=== PATIENT | female | born 1935 | race Caucasian/White ===

== ENCOUNTER 2016-09-08 10:10 | Emergency (ER) | payer MEDICARE, BC ==
[2016-09-08] MEDS ORDERED: DIPH,PERTUS(ACELL)TETVAC-LF 0.5 ML VIAL IM ONE (10:50)
--- NOTE | 2016-09-08 11:02 | ED ---
General Adult HPI - General Chief complaint: Head Injury Stated complaint: Fall Time Seen by Provider: 09/08/16 10:35 Source: patient Mode of arrival: ambulatory Limitations: no limitations - History of Present Illness Initial comments: 80-year-old female presented for evaluation of minor head injury after mechanical fall from standing. She states that she was out walking her dog and slipped on a patch of ice falling backward and hitting the back of her head. She denies any loss of consciousness and states she does not take any anticoagulants/antiplatelets. She was able to get herself up immediately and continue with the walk. Upon arrival home she discussed what happened with her and he recommended that they come for evaluation. They're going on a trip today and they want to make sure that she is safe to travel and that there was no injury that well progressed later. She states upon arriving home she felt a little confused but that resolved quickly and she is back at her baseline. She denies any ataxia, lightheadedness, nausea/vomiting, weakness, change in vision. - Related Data Home Medications Medication Instructions Recorded Confirmed Aspirin 81 mg PO DAILY 09/08/16 09/08/16 Levothyroxine Sodium [Synthroid] 75 mcg PO DAILY 09/08/16 09/08/16 Lisinopril [Zestril] 20 mg PO DAILY 09/08/16 09/08/16 Multivit-Min/FA/Lycopene/Lut 1 tab PO DAILY 09/08/16 09/08/16 [Centrum Silver Tablet] Tolterodine Tartrate [Detrol LA] 4 mg PO DAILY 09/08/16 09/08/16 Previous Rx's Medication Instructions Recorded Ibuprofen [Motrin] 800 mg PO Q8HR PRN #20 tab 09/08/16 Allergies Allergy/AdvReac Type Severity Reaction Status Date / Time adhesive tape Allergy Rash/Hives Verified 09/08/16 10:38 povidone-iodine Allergy Rash/Hives Verified 09/08/16 10:38 [From Betadine] soap [From Betadine] Allergy Rash/Hives Verified 09/08/16 10:38 Sulfa (Sulfonamide Allergy Rash/Hives Verified 09/08/16 10:38 Antibiotics) Review of Systems ROS Statement: Those systems with pertinent positive or pertinent negative responses have been documented in the HPI. General: Patient denies fever, chills,nausea, or vomiting. HEENT: No visual changes. No eye pain. No nasal symptoms. No dysphagia.No odynophagia. No ENT pain. Cardiac: No chest pain. No palpitations. Pulmonary; No dyspnea. Denies cough GI: No abdominal pain. No diarrhea. No constipation. No bowel habit changes. No melena. No hematochezia. : No dysuria.No hematuria. No hesitancy. No urgency. No renal lithiasis history. Musculoskeletal: Mild tenderness to the occiput midline. Orthopedic: Denies fracture history. Integumentary: Denies rash. Denies pruritis. Mild abrasion to occiput Neurologic: Denies any lateralizing weakness. Denies numbness. Denies tingling. No seizure activity. ROS Other: All systems not noted in ROS Statement are negative. Past Medical History Past Medical History: Hypertension, Thyroid Disorder Additional Past Medical History / Comment(s): christophe espinoza lumpectomy History of Any Multi-Drug Resistant Organisms: None Reported Past Surgical History: Adenoidectomy, Cholecystectomy, Joint Replacement, Orthopedic Surgery, Tonsillectomy Additional Past Surgical History / Comment(s): fetus removal Past Psychological History: No Psychological Hx Reported Smoking Status: Former smoker Past Alcohol Use History: Rare Past Drug Use History: None Reported General Exam - General Exam Comments Initial Comments: General: The patient is awake and alert, in no distress, and does not appear acutely ill. Eye: Pupils are equal, round and reactive to light, extra-ocular movements are intact; there is normal conjunctiva bilaterally. No signs of icterus. Ears, nose, mouth and throat: There are moist mucous membranes and no oral lesions. Neck: The neck is supple, there is no tenderness or JVD. Cardiovascular: There is a regular rate and rhythm. No murmur, rub or gallop is appreciated. Respiratory: Lungs are clear to auscultation, respirations are non-labored, breath sounds are equal. No wheezes, stridor, rales, or rhonchi. Gastrointestinal: Soft, non-distended, non-tender abdomen without masses or organomegaly noted. There is no rebound or guarding present. No CVA tenderness. Bowel sounds are unremarkable. Back: There is no tenderness to palpation in the midline. There is no obvious deformity. No rashes noted. Musculoskeletal: Normal ROM, no tenderness, There is no pedal edema. There is no calf tenderness or swelling. Sensation intact. Pulses equal bilaterally 2+. Neurological: CN II-XII intact, There are no obvious motor or sensory deficits. Coordination appears grossly intact. Speech is normal. Skin: Skin is warm and dry. Abrasion to occiput. Psychiatric: Cooperative, appropriate mood & affect, normal judgment. Limitations: no limitations Course Vital Signs 09/08/16 09/08/16 09/08/16 10:12 10:32 12:25 Temperature 97.8 F 97.3 F L Pulse Rate 89 89 78 Respiratory 18 18 20 Rate Blood Pressure 193/91 169/89 164/73 O2 Sat by Pulse 99 96 98 Oximetry Medical Decision Making - Medical Decision Making 80-year-old female presented for evaluation of head injury following mechanical fall from standing while walking her dog. She slipped on ice falling backwards striking the back of her head resulting in a minor abrasion. There was some post trauma disorientation but she was able to get herself home without difficulty and this has since resolved. Physical examination reveals mild abrasion to the occiput but otherwise no acute abnormalities with cranial nerves II through XII intact, normal gait and station, without ataxia. We'll obtain CT head and neck and update tetanus status. CT head and neck revealed no significant abnormalities. The patient was reevaluated and continued to have a normal physical evaluation. She is informed of these results and that she would be discharged with instructions to follow with her primary care physician. She is further informed that she should return to this facility if her symptoms should worsen or persist. She acknowledged an understanding of this information and agreed with this plan of care. - Radiology Data Radiology results: report reviewed, image reviewed Disposition Clinical Impression: Contusion of scalp, initial encounter, Closed head injury Disposition: HOME SELF-CARE Condition: Stable Instructions: Concussion (ED) Additional Instructions: Please use medication as discussed. Please follow up with family doctor if symptoms have not improved over the next two days. Please return to the emergency room if your symptoms increase or worsen or for any other concerns. Prescriptions: Ibuprofen [Motrin] 800 mg PO Q8HR PRN #20 tab PRN Reason: Analgesia Referrals: Jason Killian MD [Primary Care Provider] - 1-2 days Time of Disposition: 12:08
--- NOTE | 2016-09-08 12:00 | CT ---
EXAMINATION TYPE: CT brain anny portillo con DATE OF EXAM: 09/08/2016 11:44 AM COMPARISON: NONE HISTORY: 80-year-old female with fall, struck back of head CT DLP: 1431.5 mGycm Automated exposure control for dose reduction was used. Technique: Examination of the head was done in axial plane without intravenous contrast. Coronal and sagittal reconstructions performed. CT of the cervical spine was obtained in axial plane without intravenous injection of contrast mater ial. Coronal and sagittal reformatted images were obtained from the axial views for evaluation of f ractures, spinal alignment and canal. FINDINGS: Head: There is no evidence of acute intracranial hemorrhage, acute ischemic changes, mass, mass-effect, or extra-axial fluid collection. There is no effacement of cerebral sulci or basal subarachnoid cister ns. There is no hydrocephalus. There is no midline shift. Pollack-white matter distinction is preserv ed. There is a moderate-sized posterior scalp contusion without underlying calvarial fracture. Mild patchy white matter hypodensities in both cerebral hemispheres. Incidental partially empty sella . Air-fluid levels in the sphenoid sinuses. Small mucosal retention cyst or polyp floor of the right ma xillary sinus. Orbits and globes appear intact. Paranasal sinuses appear well pneumatized. Cervical spine: No craniocervical junction abnormality, predental space widening, or prevertebral soft tissue swellin g. There is facet arthropathy and uncovertebral joint arthropathy as well with grade 1 anterolisthesis a t C3-C4. Moderate disc/endplate degenerative change from C4 through C6 levels with disc osteophyte complex for mation causing mild narrowing of the spinal canal at C4-C5 and C5-C6 along with mild to moderate neur oforaminal narrowing at these levels as well. No acute fracture of the cervical spine. Sagittal and coronal reformatted images confirm above findings. COMBINED IMPRESSION: 1. Moderate size posterior scalp contusion without underlying calvarial fracture or acute intracrania l abnormality seen. Mild changes of chronic small vessel ischemic disease 2. No acute fracture of the cervical spine. Moderate spondylotic changes especially in the mid to low er cervical spine with degenerative grade 1 anterolisthesis at C3-C4. 3. Air-fluid levels in the sphenoid sinuses. Correlate for any symptoms of acute sinusitis.
[2016-09-08 12:26] VITALS: BP 164/73; PULSE 78; RESP 20; TEMP 97.3
== END 2016-09-08 12:26 | disposition home or self-care (01) ==
LOC: EC 10:10
DX: S00.03XA Contusion of scalp, initial encounter (principal); S09.90XA Unspecified injury of head, initial encounter; E07.9 Disorder of thyroid, unspecified; I10 Essential (primary) hypertension; W00.0XXA Fall on same level due to ice and snow, initial encounter; Y93.K1 Activity, walking an animal; Z79.82 Long term (current) use of aspirin; Z79.899 Other long term (current) drug therapy; Z91.048 Other nonmedicinal substance allergy status; Z88.8 Allergy status to other drugs, medicaments and biological substances; Z88.2 Allergy status to sulfonamides; Z85.3 Personal history of malignant neoplasm of breast; Z87.891 Personal history of nicotine dependence
CPT/HCPCS: 70450; 72125; 90471; 90715; 99283

== ENCOUNTER → 2016-10-25 | Outpatient (CLI) | payer MEDICARE, BC ==
--- NOTE | 2016-10-25 17:01 | XR ---
EXAMINATION TYPE: XR ribs bilateral DATE OF EXAM: 10/25/2016 4:24 PM COMPARISON: NONE HISTORY: Pain TECHNIQUE: 8 views of the bilateral ribs are submitted. FINDINGS: No evidence for displaced rib fracture or secondary sign of rib fracture. No erosive or dustin tructive changes seen. IMPRESSION: Negative
== END | disposition home or self-care (01) ==
LOC: RADXRMAIN 16:05
PROVIDERS: ATTEND Internal Medicine Geriatric Medicine
DX: M94.0 Chondrocostal junction syndrome [Tietze] (principal)
CPT/HCPCS: 71110

== ENCOUNTER → 2016-12-07 | Outpatient (CLI) | payer MEDICARE, BC ==
--- NOTE | 2016-12-07 18:28 | CT ---
EXAMINATION TYPE: CT brain wo con DATE OF EXAM: 12/07/2016 5:33 PM COMPARISON: 09/08/2016 HISTORY: f/u from fall CT DLP: 961 mGycm Automated exposure control for dose reduction was used. FINDINGS: Ventricles are fairly normal size. There is no mass effect nor midline shift. There is no evidence of intracranial hemorrhage. The calvarium appears intact. IMPRESSION: Negative unenhanced head CT scan. No change.
== END ==
LOC: RADCTMAIN 17:18
PROVIDERS: ATTEND Internal Medicine Geriatric Medicine
DX: S06.0X0D Concussion without loss of consciousness, subsequent encounter (principal)
CPT/HCPCS: 70450

== ENCOUNTER → 2018-07-03 | Outpatient (CLI) | payer MEDICARE, BC ==
[2018-07-03 17:46] LABS: T4, Free (Free Thyroxine) 1.3 ng/dL (0.80-1.80)
== END | disposition home or self-care (01) ==
LOC: LABWHC1 09:17
PROVIDERS: ATTEND Internal Medicine Geriatric Medicine
DX: E03.9 Hypothyroidism, unspecified (principal)
CPT/HCPCS: 36415; 84439; 84443

== ENCOUNTER → 2018-08-23 | Outpatient (CLI) | payer MEDICARE, BC ==
--- NOTE | 2018-08-23 16:54 | BD ---
EXAMINATION TYPE: Axial Bone Density DATE OF EXAM: 08/23/2018 COMPARISON: NONE CLINICAL HISTORY: Height: 63 Weight: 168.6 FRAX RISK QUESTIONS: Alcohol (3 or more units per day): no Family History (Parent hip fracture): no Glucocorticoids (More than 3mos): no (Ex: prednisone, prednisolone, methylprednisolone, dexamethasone, and hydrocortisone). History of Fracture in Adulthood: no Secondary Osteoporosis: 1. Type 1 Diabetes: no 2. Hyperthyroidism: no 3. Menopause before 45: no 4. Malnutrition: no 5. Chronic liver disease: no Rheumatoid Arthritis: no Current Tobacco Use: no RISK FACTORS HISTORY OF: Surgery to Spine/Hip(right/left)/Wrist (right/left): left hip When: 2006 Active: yes Diet low in dairy products/other sources of calcium: no Postmenopausal woman: can't remember Lost more than 2 inches in height since high school: no MEDICATIONS: omeprazole, lisinopril, tolterodine, vitamins Thyroid Medications: thyroid How Long: long time Additional History: breast cancer EXAM MEASUREMENTS: Bone mineral densitometry was performed using the K[employer]ron System. Bone mineral density as measured about the Lumbar spine is: ----- L1-L4(G/cm2): 1.298 T Score Values are as follows: ----- L2: 0.8 ----- L3: 2.1 ----- L4: 0.9 ----- L1-L4: 1.0 Bone mineral density has: increased 2.0 study of: 08.16.2015 Bone mineral density about the R hip (g/cm2): 0.682 Bone mineral density about the L hip (g/cm2): T Score values are as follows: -----R Neck: -2.6 -----R Total: -1.6 Bone mineral density has:decreased -6.0 since 08.16.2015 IMPRESSION: Osteoporosis (T Score less than -2.5). There is increased fracture risk and therapy is usually indicated based on age. Re-Screen 1-2 years. NOTE: T-SCORE=SD OF THE YOUNG ADULT MEAN.
== END | disposition home or self-care (01) ==
LOC: RADBDWWP 10:49
PROVIDERS: ATTEND Internal Medicine Geriatric Medicine
DX: M81.0 Age-related osteoporosis without current pathological fracture (principal)
CPT/HCPCS: 77080

== ENCOUNTER → 2018-08-23 | Outpatient (CLI) | payer MEDICARE, BC ==
--- NOTE | 2018-08-23 13:57 | MM ---
Reason for exam: additional evaluation requested from prior study. Last mammogram was performed 1 year ago. History: Patient is postmenopausal and has history of breast cancer at age 64. Family history of breast cancer in sister at age 70. Malignant excisional biopsy of the right breast, January 31, 2000. Excisional biopsy of the left breast. Lumpectomy of the right breast. Chemotherapy. Radiation therapy of the right breast. Took estrogen for 1 year beginning at age 57. Took progesterone for 1 year beginning at age 57. Took tamoxifen for 13 years beginning at age 64. Physical Findings: Nurse did not find any significant physical abnormalities on exam. MG 3D Diag Mammo W/Cad RICARDO Bilateral CC, MLO, and XCCL view(s) were taken. Prior study comparison: August 22, 2017, bilateral MG 3d diag mammo w/cad RICARDO. August 17, 2016, bilateral MG 3d diag mammo w/cad RICARDO. The breast tissue is heterogeneously dense. This may lower the sensitivity of mammography. Post surgical changes in the right breast. No significant new findings when compared with previous films. These results were verbally communicated with the patient and result sheet given to the patient on 08/23/18. ASSESSMENT: Benign, BI-RAD 2 RECOMMENDATION: Routine screening mammogram of both breasts in 1 year.
== END | disposition home or self-care (01) ==
LOC: RADMAMWWP 10:46
PROVIDERS: ATTEND Internal Medicine Hematology & Oncology
DX: Z08 Encounter for follow-up examination after completed treatment for malignant neoplasm (principal); Z85.3 Personal history of malignant neoplasm of breast
CPT/HCPCS: 77066; G0279; 77062

== ENCOUNTER 2018-10-05 08:32 | Emergency (ER) | payer MEDICARE, BC ==
[2018-10-05] MEDS ORDERED: SODIUM CHLORIDE 0.9% 1,000 ML IV STA ×2 (09:20)
[2018-10-05] MEDS ORDERED: MORPHINE SULFATE 4 MG/ML SYRINGE IV STA (09:20)
[2018-10-05] MEDS ORDERED: ONDANSETRON 4 MG/2 ML VIAL IVP STA (09:20)
--- NOTE | 2018-10-05 09:22 | ED ---
Nausea/Vomiting/Diarrhea HPI - General Chief complaint: Nausea/Vomiting/Diarrhea Stated complaint: Vomiting/pain Time Seen by Provider: 10/05/18 08:41 Source: patient, RN notes reviewed, old records reviewed Mode of arrival: ambulatory Limitations: no limitations - History of Present Illness Initial comments: Patient is an 82-year-old female presents to return today with complaints of 1 day of vomiting. She plans of left-sided abdominal pain. She also complains of left sided hip pain worse with radiation and movement. Patient states that she's had no chest pain or shortness of breath. Patient states that she has had no changes in urination or bowel habits. Patient reports that she's had episodes of diarrhea back in July which they attributed to increased sugar intake. - Related Data Home Medications Medication Instructions Recorded Confirmed Aspirin 81 mg PO DAILY 09/08/16 10/05/18 Levothyroxine Sodium [Synthroid] 75 mcg PO DAILY 09/08/16 10/05/18 Lisinopril [Zestril] 20 mg PO DAILY 09/08/16 10/05/18 Multivit-Min/FA/Lycopen/Lutein 1 tab PO DAILY 09/08/16 10/05/18 [Centrum Silver Tablet] Tolterodine Tartrate [Detrol LA] 4 mg PO DAILY 09/08/16 10/05/18 Loratadine [Claritin] 10 mg PO DAILY 10/05/18 10/05/18 Omeprazole 20 mg PO DAILY 10/05/18 10/05/18 Previous Rx's Medication Instructions Recorded Ibuprofen 600 mg PO TID #20 tablet 10/05/18 Ondansetron HCl [Zofran] 4 mg PO TID #12 tablet 10/05/18 traMADol HCl [Ultram] 50 mg PO Q6HR PRN 3 Days #12 tab 10/05/18 Allergies Allergy/AdvReac Type Severity Reaction Status Date / Time adhesive tape Allergy Rash/Hives Verified 10/05/18 09:03 povidone-iodine Allergy Rash/Hives Verified 10/05/18 09:03 [From Betadine] soap [From Betadine] Allergy Rash/Hives Verified 10/05/18 09:03 Sulfa (Sulfonamide Allergy Rash/Hives Verified 10/05/18 09:03 Antibiotics) Review of Systems ROS Statement: Those systems with pertinent positive or pertinent negative responses have been documented in the HPI. ROS Other: All systems not noted in ROS Statement are negative. Past Medical History Past Medical History: Hypertension, Thyroid Disorder Additional Past Medical History / Comment(s): christophe ca lumpectomy History of Any Multi-Drug Resistant Organisms: None Reported Past Surgical History: Adenoidectomy, Cholecystectomy, Joint Replacement, Orthopedic Surgery, Tonsillectomy Additional Past Surgical History / Comment(s): fetus removal Past Psychological History: No Psychological Hx Reported Smoking Status: Former smoker Past Alcohol Use History: Rare Past Drug Use History: None Reported General Exam - General Exam Comments Initial Comments: Pleasant 82 year old female, no distress. Limitations: no limitations General appearance: alert, in no apparent distress Head exam: Present: atraumatic, normocephalic, normal inspection Eye exam: Present: normal appearance, PERRL, EOMI. Absent: scleral icterus, conjunctival injection, periorbital swelling ENT exam: Present: normal exam, mucous membranes moist Neck exam: Present: normal inspection. Absent: tenderness, meningismus, lymphadenopathy Respiratory exam: Present: normal lung sounds bilaterally. Absent: respiratory distress, wheezes, rales, rhonchi, stridor Cardiovascular Exam: Present: regular rate, normal rhythm, normal heart sounds. Absent: systolic murmur, diastolic murmur, rubs, gallop, clicks GI/Abdominal exam: Present: soft, tenderness (LLQ tenderness), normal bowel sounds. Absent: distended, guarding, rebound, rigid Extremities exam: Present: normal inspection, full ROM, normal capillary refill , other (Pain with ROM of L hip). Absent: tenderness, pedal edema, joint swelling, calf tenderness Back exam: Present: normal inspection Neurological exam: Present: alert, oriented X3, CN II-XII intact Psychiatric exam: Present: normal affect, normal mood Skin exam: Present: warm, dry, intact, normal color. Absent: rash Course Vital Signs 10/05/18 10/05/18 08:33 13:32 Temperature 98.0 F 98.6 F Pulse Rate 103 H 84 Respiratory 18 16 Rate Blood Pressure 177/99 121/73 O2 Sat by Pulse 98 97 Oximetry Medical Decision Making - Medical Decision Making Patient is an 82 year old female with L hip and L abdominal pain, vomiting for one day. Patient labs are unremarkable. PAtient does have positive hemturia. PAtient CT abdomen and pelvis with contrast was completed, this is negative for acute disease. PAtient informed of hematuria and possiblity of passing renal stone. Patient also has pain with ROM of L hip, no xray evidence of any acute changes. Informed patient ot follow up with PCP and return parameters discussed. - Lab Data Result diagrams: 10/05/18 09:50 10/05/18 09:50 Lab Results 10/05/18 10/05/18 10/05/18 Range/Units 09:50 09:50 09:50 WBC 8.8 (3.8-10.6) k/uL RBC 4.94 (3.80-5.40) m/uL Hgb 15.2 (11.4-16.0) gm/dL Hct 45.7 (34.0-46.0) % MCV 92.5 (80.0-100.0) fL MCH 30.8 (25.0-35.0) pg MCHC 33.3 (31.0-37.0) g/dL RDW 13.1 (11.5-15.5) % Plt Count 267 (150-450) k/uL Neutrophils % 74 % Lymphocytes % 20 % Monocytes % 4 % Eosinophils % 1 % Basophils % 0 % Neutrophils # 6.5 (1.3-7.7) k/uL Lymphocytes # 1.7 (1.0-4.8) k/uL Monocytes # 0.3 (0-1.0) k/uL Eosinophils # 0.1 (0-0.7) k/uL Basophils # 0.0 (0-0.2) k/uL PT (9.0-12.0) sec INR (<1.2) APTT (22.0-30.0) sec Sodium 136 L (137-145) mmol/L Potassium 4.1 (3.5-5.1) mmol/L Chloride 100 (98-107) mmol/L Carbon Dioxide 28 (22-30) mmol/L Anion Gap 8 mmol/L BUN 13 (7-17) mg/dL Creatinine 0.53 (0.52-1.04) mg/dL Est GFR (CKD-EPI)AfAm >90 (>60 ml/min/1.73 sqM) Est GFR (CKD-EPI)NonAf 90 (>60 ml/min/1.73 sqM) Glucose 136 H (74-99) mg/dL Calcium 9.8 (8.4-10.2) mg/dL Total Bilirubin 1.1 (0.2-1.3) mg/dL AST 48 H (14-36) U/L ALT 22 (9-52) U/L Alkaline Phosphatase 70 (38-126) U/L Total Protein 8.8 H (6.3-8.2) g/dL Albumin 4.7 (3.5-5.0) g/dL Amylase 76 (30-110) U/L Lipase 94 (23-300) U/L Urine Color Light Yellow Urine Appearance Clear (Clear) Urine pH 7.5 (5.0-8.0) Ur Specific [place] 1.006 (1.001-1.035) Urine Protein Negative (Negative) Urine Glucose (UA) Negative (Negative) Urine Ketones Negative (Negative) Urine Blood Small H (Negative) Urine Nitrite Negative (Negative) Urine Bilirubin Negative (Negative) Urine Urobilinogen <2.0 (<2.0) mg/dL Ur Leukocyte Esterase Negative (Negative) Urine RBC 18 H (0-5) /hpf Urine WBC 2 (0-5) /hpf Ur Squamous Epith Cells 2 (0-4) /hpf Amorphous Sediment Rare H (None) /hpf 10/05/18 Range/Units 11:39 WBC (3.8-10.6) k/uL RBC (3.80-5.40) m/uL Hgb (11.4-16.0) gm/dL Hct (34.0-46.0) % MCV (80.0-100.0) fL MCH (25.0-35.0) pg MCHC (31.0-37.0) g/dL RDW (11.5-15.5) % Plt Count (150-450) k/uL Neutrophils % % Lymphocytes % % Monocytes % % Eosinophils % % Basophils % % Neutrophils # (1.3-7.7) k/uL Lymphocytes # (1.0-4.8) k/uL Monocytes # (0-1.0) k/uL Eosinophils # (0-0.7) k/uL Basophils # (0-0.2) k/uL PT 10.7 (9.0-12.0) sec INR 1.0 (<1.2) APTT 24.3 (22.0-30.0) sec Sodium (137-145) mmol/L Potassium (3.5-5.1) mmol/L Chloride (98-107) mmol/L Carbon Dioxide (22-30) mmol/L Anion Gap mmol/L BUN (7-17) mg/dL Creatinine (0.52-1.04) mg/dL Est GFR (CKD-EPI)AfAm (>60 ml/min/1.73 sqM) Est GFR (CKD-EPI)NonAf (>60 ml/min/1.73 sqM) Glucose (74-99) mg/dL Calcium (8.4-10.2) mg/dL Total Bilirubin (0.2-1.3) mg/dL AST (14-36) U/L ALT (9-52) U/L Alkaline Phosphatase (38-126) U/L Total Protein (6.3-8.2) g/dL Albumin (3.5-5.0) g/dL Amylase (30-110) U/L Lipase (23-300) U/L Urine Color Urine Appearance (Clear) Urine pH (5.0-8.0) Ur Specific [place] (1.001-1.035) Urine Protein (Negative) Urine Glucose (UA) (Negative) Urine Ketones (Negative) Urine Blood (Negative) Urine Nitrite (Negative) Urine Bilirubin (Negative) Urine Urobilinogen (<2.0) mg/dL Ur Leukocyte Esterase (Negative) Urine RBC (0-5) /hpf Urine WBC (0-5) /hpf Ur Squamous Epith Cells (0-4) /hpf Amorphous Sediment (None) /hpf - Radiology Data Radiology results: report reviewed No radiographic evidence for patient symptoms. Appendiccolith noted, no signs of appendicitis. Disposition Clinical Impression: Hematuria, Left hip pain, Abdominal pain Disposition: HOME SELF-CARE Condition: Good Instructions (If sedation given, give patient instructions): Abdominal Pain (ED ), Hip Pain (ED) Additional Instructions: Patient advised of close follow-up with primary care physician. Patient should return to the emergency department if any alarming signs or symptoms occur. Prescriptions: Ibuprofen 600 mg PO TID #20 tablet Ondansetron HCl [Zofran] 4 mg PO TID #12 tablet traMADol HCl [Ultram] 50 mg PO Q6HR PRN 3 Days #12 tab PRN Reason: Nausea Is patient prescribed a controlled substance at d/c from ED?: Yes When asked, does pt state using other controlled substances?: No If prescribed controlled substance>3 days was MAPS reviewed?: Prescribed <3 Days If opioid is for acute pain is fill amount 7 days or less?: No If Rx opioid, was Start Talking consent form obtained?: Yes Referrals: Jason Killian MD [Primary Care Provider] - 1-2 days Time of Disposition: 13:17
[2018-10-05] MEDS ORDERED: diphenhydrAMINE 50 MG/ML 1 ML VIAL IVP STA (09:43)
[2018-10-05] MEDS ORDERED: methylPREDNISolone SOD SUCCI 125 MG/2 ML VIAL IV STA (09:43)
[2018-10-05] MEDS ORDERED: FAMOTIDINE 20 MG/2 ML VIAL IV STA (09:43)
[2018-10-05 10:41] LABS: Basophils % (A) 0 %; Eosinophils # (A) 0.1 k/uL (0-0.7); Eosinophils % (A) 1 %; HCT 45.7 % (34.0-46.0); HGB 15.2 gm/dL (11.4-16.0); Lymphocytes # (A) 1.7 k/uL (1.0-4.8); Lymphocytes % (A) 20 %; MCH 30.8 pg (25.0-35.0); MCHC 33.3 g/dL (31.0-37.0); MCV 92.5 fL (80.0-100.0); Mean Platelet Volume 8.2; Monocytes # (A) 0.3 k/uL (0-1.0); Monocytes % (A) 4 %; Neutrophils # (A) 6.5 k/uL (1.3-7.7); Neutrophils % (A) 74 %; Platelet Count 267 k/uL (150-450); RBC 4.94 m/uL (3.80-5.40); RDW 13.1 % (11.5-15.5); WBC 8.8 k/uL (3.8-10.6)
[2018-10-05 10:43] LABS: ALT 22 U/L (9-52); AST 48 U/L (14-36); Albumin 4.7 g/dL (3.5-5.0); Alkaline Phosphatase 70 U/L (38-126); Amylase 76 U/L (30-110); Anion Gap 8 mmol/L; Blood Urea Nitrogen 13 mg/dL (7-17); Calcium 9.8 mg/dL (8.4-10.2); Carbon Dioxide 28 mmol/L (22-30); Chloride 100 mmol/L (98-107); Glucose 136 mg/dL (74-99); Lipase 94 U/L (23-300); Potassium 4.1 mmol/L (3.5-5.1); Sodium 136 mmol/L (137-145); Total Bilirubin 1.1 mg/dL (0.2-1.3); Total Protein 8.8 g/dL (6.3-8.2)
--- NOTE | 2018-10-05 11:56 | CT ---
EXAMINATION TYPE: CT abdomen pelvis w con DATE OF EXAM: 10/05/2018 COMPARISON: HISTORY: abdominal pain CT DLP: 767.1 mGycm Automated exposure control for dose reduction was used. TECHNIQUE: Helical acquisition of images was performed from the lung bases through the pelvis. CONTRAST: Performed without Oral Contrast and with IV Contrast, patient injected with 100 mL of Isovue 300. FINDINGS: LUNG BASES: No significant abnormality is appreciated. Metallic densities are seen in the right breas t likely relating to prior surgery or biopsy. LIVER/GB: Liver is unremarkable. The gallbladder is surgically absent. PANCREAS: Minimally atrophic with minimal dilatation of main pancreatic duct. SPLEEN: No significant abnormality is seen. ADRENALS: No significant abnormality is seen. KIDNEYS: No significant abnormality is seen. Small left renal cyst. FREE AIR: No free air is visualized. RETROPERITONEAL ADENOPATHY: None visualized REPRODUCTIVE ORGANS: No significant abnormality is seen URINARY BLADDER: No significant abnormality is seen. PELVIC ADENOPATHY: None visualized. OSSEOUS STRUCTURES: No evidence of acute osseous pathology. Multilevel degenerative changes of the s pine. Evidence of a prior total left hip arthroplasty. BOWEL: No bowel wall thickening, dilation or surrounding mesenteric fat inflammation. A fecalith is identified at the origin of the appendix. There are no radiographic signs of appendicitis. IMPRESSION: 1. NO RADIOGRAPHIC FINDINGS TO EXPLAIN PATIENT'S SYMPTOMS. 2. APPENDICOLITH IDENTIFIED AT THE ORIGIN OF THE APPENDIX. THERE ARE NO RADIOGRAPHIC SIGNS OF APPENDI [place].
[2018-10-05 12:38] LABS: Partial Thromboplastin Time 24.3 sec (22.0-30.0); Prothrombin Time 10.7 sec (9.0-12.0)
[2018-10-05 12:52] LABS: Amorphous Sediment,Urine Rare /hpf; Appearance,Urine Clear (Clear); Bilirubin,Urine Negative (Negative); Blood,Urine Small (Negative); Color,Urine Light Yellow; Glucose,Urine (UA) Negative (Negative); Ketones,Urine Negative (Negative); Leukocyte Esterase,Urine Negative (Negative); Nitrite,Urine Negative (Negative); PH, Urine 7.5 (5.0-8.0); Protein,Urine Negative (Negative); RBC,Urine 18 /hpf (0-5); Specific Gravity,Urine 1.006 (1.001-1.035); Squamous Epithelial Cell,Urine 2 /hpf (0-4); Urobilinogen,Urine <2.0 mg/dL (<2.0); WBC,Urine 2 /hpf (0-5)
[2018-10-05 13:33] VITALS: BP 121/73; PULSE 84; RESP 16; TEMP 98.6
== END 2018-10-05 13:32 | disposition home or self-care (01) ==
LOC: EC 08:32
DX: M25.552 Pain in left hip (principal); R31.9 Hematuria, unspecified; R10.9 Unspecified abdominal pain; K38.8 Other specified diseases of appendix; R11.10 Vomiting, unspecified; I10 Essential (primary) hypertension; E07.9 Disorder of thyroid, unspecified; Z87.891 Personal history of nicotine dependence; Z88.2 Allergy status to sulfonamides; Z91.048 Other nonmedicinal substance allergy status; Z79.82 Long term (current) use of aspirin; Z79.890 Hormone replacement therapy; Z79.899 Other long term (current) drug therapy; Z85.3 Personal history of malignant neoplasm of breast; Z98.890 Other specified postprocedural states; Z90.49 Acquired absence of other specified parts of digestive tract
CPT/HCPCS: 99284; 96374; 96375 ×4; 96361 ×2; 36415; 80053; 82150; 83690; 85025; 85610; 85730; 81001; 74177; J2270; J1200; J2930; J2405; Q9967

== ENCOUNTER → 2018-10-15 | Outpatient (CLI) | payer MEDICARE, BC ==
--- NOTE | 2018-10-15 11:58 | XR ---
EXAMINATION TYPE: XR Hip Complete LT DATE OF EXAM: 10/15/2018 CLINICAL HISTORY: Left hip pain for approximately 10 days with no known injury TECHNIQUE: AP and frogleg views of the left hip are obtained. COMPARISON: None. FINDINGS: There is a left total hip arthroplasty without surrounding lucency. Acetabular and femoral components appear aligned. No hardware or [place] bone fracture is seen of the left hip. Small phlebo liths are noted within the pelvis. Soft tissues are unremarkable. IMPRESSION: Left hip arthroplasty maintains normal alignment without obvious dislocation, loosening o r fracture. Correlation with physical examination is recommended.
== END | disposition home or self-care (01) ==
LOC: RADXRMAIN 11:22
PROVIDERS: ATTEND Internal Medicine Geriatric Medicine
DX: M25.552 Pain in left hip (principal); Z96.642 Presence of left artificial hip joint
CPT/HCPCS: 73502

== ENCOUNTER → 2018-11-26 | Outpatient (CLI) | payer MEDICARE, BC ==
--- NOTE | 2018-11-26 11:33 | US ---
EXAMINATION TYPE: US kidneys/renal and bladder DATE OF EXAM: 11/26/2018 COMPARISON: CT 2019, US 2017 CLINICAL HISTORY: Q61.00 CYST OF KIDNEY. Abdomen pain, frequent UTI's, history of left kidney cyst EXAM MEASUREMENTS: Right Kidney: 9.7 x 4.7 x 4.9 cm Left Kidney: 10.3 x 5.1 x 5.7 cm Right Kidney: wnl Left Kidney: 1.3 x 1.4 x 1.5cm exophytic hypoechoic area mid pole Bladder: wnl Bilateral Jets seen: no IMPRESSION: 1.5 cm left renal exophytic nodule does not meet the criteria of a simple cyst by ultrasound. This li opal is technical as it measured approximately 5 Hounsfield units on the previous CT scan suggestive of simple cyst..
== END | disposition home or self-care (01) ==
LOC: RADUSWWP 10:56
PROVIDERS: ATTEND Internal Medicine Geriatric Medicine
DX: N28.1 Cyst of kidney, acquired (principal)
CPT/HCPCS: 76770

== ENCOUNTER → 2019-02-25 | Outpatient (CLI) | payer MEDICARE, BC ==
[2019-02-25 10:21] LABS: Basophils % (A) 1 %; Eosinophils # (A) 0.4 k/uL (0-0.7); Eosinophils % (A) 7 %; HCT 45.6 % (34.0-46.0); HGB 14.5 gm/dL (11.4-16.0); Lymphocytes # (A) 1.8 k/uL (1.0-4.8); Lymphocytes % (A) 32 %; MCH 30.4 pg (25.0-35.0); MCHC 31.8 g/dL (31.0-37.0); MCV 95.4 fL (80.0-100.0); Mean Platelet Volume 8.3; Monocytes # (A) 0.4 k/uL (0-1.0); Monocytes % (A) 6 %; Neutrophils # (A) 2.9 k/uL (1.3-7.7); Neutrophils % (A) 51 %; Platelet Count 240 k/uL (150-450); RBC 4.78 m/uL (3.80-5.40); RDW 14.7 % (11.5-15.5); WBC 5.6 k/uL (3.8-10.6)
[2019-02-25 10:31] LABS: INR 0.9 (<1.2); Prothrombin Time 10.2 sec (9.0-12.0)
[2019-02-25 18:06] LABS: African American GFR (CKD) 93.5 (60.0-200.0); Albumin 4.3 g/dL (3.80-4.90); Albumin/Globulin Ratio 1.95 (1.60-3.17); Anion Gap 10.9 mmol/L (4.00-12.00); BUN/Creat Ratio 15.71 Ratio (12.00-20.00); Calcium 9.8 mg/dL (8.7-10.3); Carbon Dioxide 27.1 mmol/L (21.6-31.8); Globulin 2.2 g/dL (1.6-3.3); LDL Cholesterol,Calculated 108.2 mg/dL (0.0-131.0); Potassium 4.2 mmol/L (3.5-5.5); Total Bilirubin 1.2 mg/dL (0.2-1.2); Total Protein 6.5 g/dL (6.2-8.2); VLDL Calculation 20.8 mg/dL (5.00-40.00)
[2019-02-25 18:08] LABS: Hemoglobin A1C 5.9 % (4.0-6.0)
[2019-02-25 18:21] LABS: T4, Free (Free Thyroxine) 1.2 ng/dL (0.80-1.80)
== END | disposition home or self-care (01) ==
LOC: LABWHC1 08:50
PROVIDERS: ATTEND Internal Medicine Geriatric Medicine
DX: Z01.812 Encounter for preprocedural laboratory examination (principal); M25.562 Pain in left knee; M17.12 Unilateral primary osteoarthritis, left knee; K21.9 Gastro-esophageal reflux disease without esophagitis; E78.2 Mixed hyperlipidemia; E03.9 Hypothyroidism, unspecified
CPT/HCPCS: 36415; 80053; 80061; 83036; 84439; 84443; 85025; 85610; 87070

== ENCOUNTER → 2019-05-23 | Outpatient (CLI) | payer MEDICARE, BC ==
--- NOTE | 2019-05-23 14:33 | XR ---
EXAMINATION TYPE: XR chest 2V DATE OF EXAM: 05/23/2019 COMPARISON: 02/22/2016 INDICATION: Fever R 50.9 TECHNIQUE: Frontal and lateral views of the chest are obtained. FINDINGS: The heart size is normal. The pulmonary vasculature is normal. The lungs are clear. IMPRESSION: 1. No acute pulmonary process.
== END | disposition home or self-care (01) ==
LOC: RADXRWHC 14:04
PROVIDERS: ATTEND Nurse Practitioner Family
DX: R50.9 Fever, unspecified (principal)
CPT/HCPCS: 71046

== ENCOUNTER → 2019-08-08 | Outpatient (CLI) | payer MEDICARE, BC ==
[2019-08-08 09:41] LABS: Basophils % (A) 1 %; Eosinophils # (A) 0.4 k/uL (0-0.7); Eosinophils % (A) 6 %; HCT 41.7 % (34.0-46.0); HGB 13.5 gm/dL (11.4-16.0); Lymphocytes # (A) 1.7 k/uL (1.0-4.8); Lymphocytes % (A) 26 %; MCH 29.6 pg (25.0-35.0); MCHC 32.5 g/dL (31.0-37.0); MCV 91.1 fL (80.0-100.0); Mean Platelet Volume 7.8; Monocytes # (A) 0.4 k/uL (0-1.0); Monocytes % (A) 6 %; Neutrophils # (A) 3.9 k/uL (1.3-7.7); Neutrophils % (A) 59 %; Platelet Count 279 k/uL (150-450); RBC 4.57 m/uL (3.80-5.40); RDW 13.3 % (11.5-15.5); WBC 6.6 k/uL (3.8-10.6)
[2019-08-08 18:32] LABS: African American GFR (CKD) 98.4 (60.0-200.0); Non-African American GFR(CKD) 84.9 (60.0-200.0)
[2019-08-08 18:41] LABS: Ferritin 186.7 ng/mL (10.0-291.0); T4, Free (Free Thyroxine) 0.9 ng/dL (0.80-1.80)
[2019-08-08 19:01] LABS: Thyroid Peroxidase Antibodies <28.0 U/mL (0.0-60.0)
== END | disposition home or self-care (01) ==
LOC: LABWHC1 08:51
PROVIDERS: ATTEND Dermatology
DX: L66.1 Lichen planopilaris (principal); L65.0 Telogen effluvium
CPT/HCPCS: 36415; 82565; 82728; 82947; 83540; 84436; 84439; 84443; 84450; 84460; 84480; 84481; 84482; 84520; 85025; 86038; 86376

== ENCOUNTER → 2019-08-25 | Outpatient (CLI) | payer MEDICARE, BC ==
--- NOTE | 2019-08-25 11:37 | MM ---
Reason for exam: additional evaluation requested from prior study. Last mammogram was performed 1 year ago. History: Patient is postmenopausal and has history of breast cancer at age 64. Family history of breast cancer in sister at age 70. Malignant excisional biopsy of the right breast, January 31, 2000. Excisional biopsy of the left breast. Lumpectomy of the right breast. Chemotherapy. Radiation therapy of the right breast. Took estrogen for 1 year beginning at age 57. Took progesterone for 1 year beginning at age 57. Took tamoxifen for 13 years beginning at age 64. Physical Findings: Nurse did not find any significant physical abnormalities on exam. MG 3D Diag Mammo W/Cad RICARDO Bilateral CC and MLO view(s) were taken. Prior study comparison: August 23, 2018, bilateral MG 3d diag mammo w/cad RICARDO. August 22, 2017, bilateral MG 3d diag mammo w/cad RICARDO. The breast tissue is heterogeneously dense. This may lower the sensitivity of mammography. Benign appearing bilateral calcifications. Similar right post therapy change. These results were verbally communicated with the patient and result sheet given to the patient on 08/25/19. ASSESSMENT: Benign, BI-RAD 2 RECOMMENDATION: Follow-up diagnostic mammogram of both breasts in 1 year.
== END | disposition home or self-care (01) ==
LOC: RADMAMWWP 10:26
PROVIDERS: ATTEND Internal Medicine Hematology & Oncology
DX: R92.8 Other abnormal and inconclusive findings on diagnostic imaging of breast (principal); Z85.3 Personal history of malignant neoplasm of breast
CPT/HCPCS: 77066; G0279; 77062

== ENCOUNTER → 2020-08-25 | Outpatient (CLI) | payer MEDICARE, BC ==
--- NOTE | 2020-08-30 09:56 | MM ---
Reason for exam: additional evaluation requested from prior study. Last mammogram was performed 1 year ago. History: Patient is postmenopausal and has history of breast cancer at age 64. Family history of breast cancer in sister at age 70. Malignant excisional biopsy of the right breast, January 31, 2000. Excisional biopsy of the left breast. Lumpectomy of the right breast. Chemotherapy. Radiation therapy of the right breast. Took estrogen for 1 year beginning at age 57. Took progesterone for 1 year beginning at age 57. Took tamoxifen for 13 years beginning at age 64. Physical Findings: Nurse did not find any significant physical abnormalities on exam. MG 3D Diag Mammo W/Cad RICARDO Bilateral CC and MLO view(s) were taken. XCCL view(s) were taken of the right breast. Prior study comparison: August 25, 2019, bilateral MG 3d diag mammo w/cad RICARDO. August 23, 2018, bilateral MG 3d diag mammo w/cad RICARDO. The breast tissue is heterogeneously dense. This may lower the sensitivity of mammography. Post surgical and post therapy change right breast. Stable benign oil cyst calcifications. No significant new findings when compared with previous films. These results were verbally communicated with the patient and result sheet given to the patient on 08/25/20. ASSESSMENT: Benign, BI-RAD 2 RECOMMENDATION: Follow-up diagnostic mammogram of both breasts in 1 year.
== END | disposition home or self-care (01) ==
LOC: RADMAMWWP 14:59
PROVIDERS: ATTEND Internal Medicine Hematology & Oncology
DX: Z08 Encounter for follow-up examination after completed treatment for malignant neoplasm (principal); Z85.3 Personal history of malignant neoplasm of breast; Z90.11 Acquired absence of right breast and nipple
CPT/HCPCS: 77066; G0279; 77062

== ENCOUNTER → 2020-12-23 | Outpatient (CLI) | payer MEDICARE, BC ==
--- NOTE | 2020-12-23 15:25 | XR ---
EXAMINATION TYPE: XR cervical spine comp DATE OF EXAM: 12/23/2020 COMPARISON: NONE HISTORY: Pain TECHNIQUE: Four views are submitted. FINDINGS: The odontoid is intact. There are no compression deformities. The prevertebral soft tissue structur es are within normal limits. Multilevel severe degenerative disc disease with posterior spondylosis C4-5 and C5-C6. Anterolisthesis of C3 on C4 measuring 3 mm. Multilevel facet arthropathy. Multilevel foraminal encroachment. IMPRESSION: 1. Multilevel severe degenerative disc disease as discussed above with facet arthropathy and suspecte d foraminal encroachment.
== END | disposition home or self-care (01) ==
LOC: RADXRMAIN 15:09
PROVIDERS: ATTEND Internal Medicine Geriatric Medicine
DX: M50.322 Other cervical disc degeneration at C5-C6 level (principal); M47.812 Spondylosis without myelopathy or radiculopathy, cervical region
CPT/HCPCS: 72050

== ENCOUNTER → 2021-01-27 | Outpatient (CLI) | payer MEDICARE, BC ==
--- NOTE | 2021-01-27 17:41 | MR ---
EXAMINATION TYPE: MR cervical spine wo con DATE OF EXAM: 01/27/2021 COMPARISON: Plain film 12/23/2020 HISTORY: Neck pain that grinds when moving for 8 months. TECHNIQUE: Multiplanar, multisequence images of the cervical spine were acquired. C2-C3: Minimal posterior disc bulge is present. No foraminal encroachment. C3-C4: Posterior extension endplate disc complex effaces the anterior thecal sac. No significant fora wyatt encroachment. C4-C5: Posterior extension endplate disc complex effaces the anterior thecal sac, there is uncoverteb ral joint hypertrophy, facet arthropathy result in right-sided foraminal encroachment C5-C6: Posterior extension endplate disc complex effaces the anterior thecal sac, there is bilateral foraminal encroachment due to uncovertebral joint hypertrophy, facet arthropathy right greater than l eft. Mild spinal stenosis. C6-C7: Posterior extension endplate disc complex effaces the anterior thecal sac. No significant fora wyatt encroachment. C7-T1: No evidence for degenerative disc disease. No disc bulge/herniation or protrusion. No Canal stenosis. Foramina are patent bilaterally. Cervical segments are intact. There is normal alignment. Cervical spinal cord is of normal signal. Craniovertebral junction relationships are within normal limits. There is multilevel spondylosis. L oss of disc height and signal greatest at C4-5, C5-C6 and C6-7, there is endplate discogenic marrow s ignal change. No significant spinal stenosis. IMPRESSION: Multilevel degenerative disc disease, foraminal encroachment.
== END | disposition home or self-care (01) ==
LOC: RADMRIMAIN 16:06
PROVIDERS: ATTEND Internal Medicine Geriatric Medicine
DX: M50.30 Other cervical disc degeneration, unspecified cervical region (principal)
CPT/HCPCS: 72141

== ENCOUNTER → 2021-02-23 | Outpatient (CLI) | payer MEDICARE, BC ==
[2021-02-23 16:53] LABS: Basophils # (A) 0.04 X 10*3/uL (0.00-0.10); Basophils % (A) 0.6 %; Eosinophils # (A) 0.54 X 10*3/uL (0.04-0.35); Eosinophils % (A) 7.6 %; HCT 42.6 % (37.2-46.3); HGB 13.7 g/dL (12.0-15.0); Lymphocytes # (A) 2.26 X 10*3/uL (0.90-5.00); Lymphocytes % (A) 31.7 %; MCH 30.5 pg (27.0-32.0); MCHC 32.2 g/dL (32.0-37.0); MCV 94.9 fL (80.0-97.0); Mean Platelet Volume 11.2 fL (9.5-12.2); Monocytes # (A) 0.63 X 10*3/uL (0.20-1.00); Monocytes % (A) 8.8 %; Neutrophils # (A) 3.62 X 10*3/uL (1.80-7.70); Neutrophils % (A) 50.9 %; Platelet Count 263 X 10*3/uL (140-440); RBC 4.49 X 10*6/uL (4.10-5.20); RDW 13.6 % (11.5-14.5); WBC 7.12 X 10*3/uL (4.50-10.00)
[2021-02-23 18:55] LABS: African American GFR (CKD) 92.2 (60.0-200.0); Albumin 4.4 g/dL (3.80-4.90); Albumin/Globulin Ratio 1.83 (1.60-3.17); Anion Gap 9.2 mmol/L (4.00-12.00); Calcium 9.4 mg/dL (8.7-10.3); Carbon Dioxide 25.8 mmol/L (21.6-31.8); Chol/HDL Ratio 4.13; Globulin 2.4 g/dL (1.6-3.3); LDL Cholesterol,Calculated 102.6 mg/dL (0.0-131.0); Non-African American GFR(CKD) 79.6 (60.0-200.0); Potassium 4.5 mmol/L (3.5-5.5); Total Bilirubin 0.8 mg/dL (0.3-1.2); Total Protein 6.8 g/dL (6.2-8.2); VLDL Calculation 16.4 mg/dL (5.00-40.00)
== END | disposition home or self-care (01) ==
LOC: LABWHC1 11:05
PROVIDERS: ATTEND Internal Medicine Geriatric Medicine
DX: E78.2 Mixed hyperlipidemia (principal); E03.9 Hypothyroidism, unspecified; Q61.00 Congenital renal cyst, unspecified
CPT/HCPCS: 36415; 80053; 80061; 84439; 84443; 85025

== ENCOUNTER → 2021-06-30 | Outpatient (CLI) | payer MEDICARE, BC ==
--- NOTE | 2021-06-30 12:35 | XR ---
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 FINDINGS: Elevated right hemidiaphragm and chronic parenchymal peripheral fibrotic changes bilaterall y are redemonstrated. The latter thought slightly more prominent from 2019 study. There is no suspici ous focal air space opacity, pleural effusion, or pneumothorax seen. The cardiac silhouette size is stable and within normal limits. The osseous structures are demineralized. Cholecystectomy clips re demonstrated. IMPRESSION: Bilateral chronic peripheral parenchymal fibrotic changes are felt progressed from the 2 019 study.
== END | disposition home or self-care (01) ==
LOC: RADXRMAIN 12:06
PROVIDERS: ATTEND Internal Medicine Geriatric Medicine
DX: R06.02 Shortness of breath (principal)
CPT/HCPCS: 71046

== ENCOUNTER 2021-07-24 17:02 | Inpatient (IN) | payer MEDICARE, BC ==
[2021-07-24] MEDS ORDERED: ASPIRIN 81 MG PO STA (18:04)
[2021-07-24] MEDS ORDERED: SODIUM CHLORIDE 0.9% 1,000 ML IV STA ×2 (18:04→20:45)
--- NOTE | 2021-07-24 18:37 | ED ---
General Adult HPI - General Chief complaint: Syncope Stated complaint: syncope Time Seen by Provider: 07/24/21 17:32 Source: EMS, RN notes reviewed, old records reviewed Mode of arrival: EMS Limitations: no limitations - History of Present Illness Initial comments: Patient is an 85-year-old female with past medical history remarkable for hypertension, thyroid disorder, chronic sinus infection, pulmonary fibrosis who presents emergency Department following a syncopal episode at home. Patient has been dealing with a sinus infection for multiple days, however this is a chronic recurrent issue. She was started on prednisone as well as antibiotics 4 days ago. States that since that time she is feeling a little increased fatigue, nasal drainage, mild cough. Patient was vaccinated for COVID-19. She states she was in the bathroom earlier, when she felt lightheaded when she stood up and had a syncopal episode. Denies injuring herself in the fall. Denies any back pain, abdominal pain, nausea, vomiting, chest pain. Endorses a mild productive cough of yellow mucus. She describes it as a "chesty cough". Denies any urinary complaints but does have a history of UTIs. His no other acute complaints at this time. She is no history of blood clots in herself or family members. Patient presents over concern for her syncopal episode at home which occurred approximately 1-2 hours prior to arrival. Patient was evaluated when she was placed in a room. - Related Data Home Medications Medication Instructions Recorded Confirmed Aspirin 81 mg PO DAILY 09/08/16 10/05/18 Levothyroxine Sodium [Synthroid] 75 mcg PO DAILY 09/08/16 10/05/18 Multivit-Min/FA/Lycopen/Lutein 1 tab PO DAILY 09/08/16 10/05/18 [Centrum Silver Tablet] Tolterodine Tartrate [Detrol LA] 4 mg PO DAILY 09/08/16 10/05/18 lisinopriL [Zestril] 20 mg PO DAILY 09/08/16 10/05/18 Loratadine [Claritin] 10 mg PO DAILY 10/05/18 10/05/18 Omeprazole 20 mg PO DAILY 10/05/18 10/05/18 Previous Rx's Medication Instructions Recorded Ibuprofen 600 mg PO TID #20 tablet 10/05/18 Ondansetron HCl [Zofran] 4 mg PO TID #12 tablet 10/05/18 traMADol HCl [Ultram] 50 mg PO Q6HR PRN 3 Days #12 tab 10/05/18 Allergies Allergy/AdvReac Type Severity Reaction Status Date / Time adhesive tape Allergy Rash/Hives Verified 10/05/18 09:03 povidone-iodine Allergy Rash/Hives Verified 10/05/18 09:03 [From Betadine] soap [From Betadine] Allergy Rash/Hives Verified 10/05/18 09:03 Sulfa (Sulfonamide Allergy Rash/Hives Verified 10/05/18 09:03 Antibiotics) Review of Systems ROS Statement: Those systems with pertinent positive or pertinent negative responses have been documented in the HPI. Review of Systems: CONST: Denies fever EYES: Denies blurry vision ENT: Endorses nasal congestion C/V: Denies Chest pain RESP: Denies shortness of breath GI: Denies abdominal pain : Denies dysuria SKIN: Denies rash. MSK: Denies joint pain. NEURO: Denies headache ROS Other: All systems not noted in ROS Statement are negative. Past Medical History Past Medical History: Hypertension, Thyroid Disorder Additional Past Medical History / Comment(s): christophe espinoza lumpectomy History of Any Multi-Drug Resistant Organisms: None Reported Past Surgical History: Adenoidectomy, Cholecystectomy, Joint Replacement, Orthopedic Surgery, Tonsillectomy Additional Past Surgical History / Comment(s): fetus removal Past Psychological History: No Psychological Hx Reported Past Alcohol Use History: Rare Past Drug Use History: None Reported General Exam - General Exam Comments Initial Comments: General: Appears in no acute distress. HEAD: Normal with no signs of head trauma. EYES: PERRLA, EOMI, conjunctiva normal, no discharge. Pupils are 3 mm and equal bilaterally. ENT: Hearing grossly intact, normal oropharynx. Rhinorrhea present. RESPIRATORY: Clear breath sounds bilaterally. No wheezes, rales, or rhonchi. Not hypoxic. No increased work of breathing. C/V: Regular rate and rhythm. S1 and S2 auscultated, no edema, peripheral pulses 2+ and intact throughout ABD: Abd is soft, nontender, nondistended EXT: Normal range of motion, no obvious deformity SKIN: No rashes or lesions observed on exposed skin. NEURO: Alert and oriented x 4. Cranial nerves II-XII intact. No focal sensory or strength deficits. NIH is 0. GCS is 15. Limitations: no limitations Course Vital Signs 07/24/21 07/24/21 17:18 20:38 Temperature 96.9 F L 97.8 F Pulse Rate 73 75 Respiratory 18 16 Rate Blood Pressure 100/65 103/67 O2 Sat by Pulse 100 96 Oximetry Medical Decision Making - Medical Decision Making Based on the patient's presentation and physical exam, she appears to have a syncopal episode at home. Etiology concerns include infectious versus cardiac cause at this time. As the patient is 85 years old, I am also concerned for possible intracranial injury as she did fall to the ground. She is not on blood thinners. Therefore we will obtain a cardiac workup in addition to infectious labs, chest x-ray, EKG. She'll be administered 1 L fluid bolus she'll also be given an aspirin. Patient was in agreement with this plan. EKG revealed no signs of acute ischemia. No prior EKG for comparison.Chest x- ray shows chronic pulmonary fibrosis. Head CT shows no acute intracranial process. There is mild atrophy. Laboratory studies are remarkable for a mild leukocytosis of 12.5. Patient is acutely hyponatremic to 122 and hypochloremic to 88. Renal function is within normal limits. Patient is a hemolyzed potassium of 5.2 and repeat is ordered. Troponin is negative. Covid swab and urinalysis are still pending at this time. Laboratory studies were delayed pending being drawn by our lab, as well as nursing staff attempted multiple times without success. On reevaluation, patient's lightheadedness is resolved. She states she otherwise feels improved, however I explained that due to her electrode abnormalities as well as syncopal episode major would like to admitted to the hospital for telemetry monitoring. She was in agreement with this plan. She will be started on maintenance fluids. She will be given an aspirin as well. I spoke with the admitting physician, Dr. Killian's group who is being covered by Dr. Lang who accepted the patient. Cardiology was consulted evaluated the patient and the morning. We will trend troponins as well as obtain a cardiac echo. Patient was in agreement this plan. Patient was admitted in serious condition. - Lab Data Result diagrams: 07/24/21 19:49 07/24/21 19:49 Lab Results 07/24/21 07/24/21 07/24/21 Range/Units 19:49 19:49 19:49 WBC 12.5 H (3.8-10.6) k/uL RBC 4.30 (3.80-5.40) m/uL Hgb 13.1 (11.4-16.0) gm/dL Hct 37.4 (34.0-46.0) % MCV 87.1 (80.0-100.0) fL MCH 30.4 (25.0-35.0) pg MCHC 35.0 (31.0-37.0) g/dL RDW 12.9 (11.5-15.5) % Plt Count 297 (150-450) k/uL MPV 7.6 Neutrophils % 68 % Lymphocytes % 21 % Monocytes % 7 % Eosinophils % 3 % Basophils % 0 % Neutrophils # 8.6 H (1.3-7.7) k/uL Lymphocytes # 2.6 (1.0-4.8) k/uL Monocytes # 0.9 (0-1.0) k/uL Eosinophils # 0.3 (0-0.7) k/uL Basophils # 0.0 (0-0.2) k/uL PT 10.3 (9.0-12.0) sec INR 1.0 (<1.2) APTT 23.3 (22.0-30.0) sec Sodium 122 L (137-145) mmol/L Potassium 5.2 H (3.5-5.1) mmol/L Chloride 88 L (98-107) mmol/L Carbon Dioxide 25 (22-30) mmol/L Anion Gap 9 mmol/L BUN 25 H (7-17) mg/dL Creatinine 0.95 (0.52-1.04) mg/dL Est GFR (CKD-EPI)AfAm 64 (>60 ml/min/1.73 sqM) Est GFR (CKD-EPI)NonAf 56 (>60 ml/min/1.73 sqM) Glucose 94 (74-99) mg/dL Plasma Lactic Acid Sp (0.7-2.0) mmol/L Calcium 9.9 (8.4-10.2) mg/dL Magnesium 2.0 (1.6-2.3) mg/dL Total Bilirubin 0.8 (0.2-1.3) mg/dL AST 43 H (14-36) U/L ALT 24 (4-34) U/L Alkaline Phosphatase 65 (38-126) U/L Troponin I (0.000-0.034) ng/mL Total Protein 7.4 (6.3-8.2) g/dL Albumin 4.2 (3.5-5.0) g/dL Coronavirus (PCR) (Not Detectd) 07/24/21 07/24/21 07/24/21 Range/Units 19:49 19:49 20:31 WBC (3.8-10.6) k/uL RBC (3.80-5.40) m/uL Hgb (11.4-16.0) gm/dL Hct (34.0-46.0) % MCV (80.0-100.0) fL MCH (25.0-35.0) pg MCHC (31.0-37.0) g/dL RDW (11.5-15.5) % Plt Count (150-450) k/uL MPV Neutrophils % % Lymphocytes % % Monocytes % % Eosinophils % % Basophils % % Neutrophils # (1.3-7.7) k/uL Lymphocytes # (1.0-4.8) k/uL Monocytes # (0-1.0) k/uL Eosinophils # (0-0.7) k/uL Basophils # (0-0.2) k/uL PT (9.0-12.0) sec INR (<1.2) APTT (22.0-30.0) sec Sodium (137-145) mmol/L Potassium (3.5-5.1) mmol/L Chloride (98-107) mmol/L Carbon Dioxide (22-30) mmol/L Anion Gap mmol/L BUN (7-17) mg/dL Creatinine (0.52-1.04) mg/dL Est GFR (CKD-EPI)AfAm (>60 ml/min/1.73 sqM) Est GFR (CKD-EPI)NonAf (>60 ml/min/1.73 sqM) Glucose (74-99) mg/dL Plasma Lactic Acid Sp 1.5 (0.7-2.0) mmol/L Calcium (8.4-10.2) mg/dL Magnesium (1.6-2.3) mg/dL Total Bilirubin (0.2-1.3) mg/dL AST (14-36) U/L ALT (4-34) U/L Alkaline Phosphatase (38-126) U/L Troponin I <0.012 (0.000-0.034) ng/mL Total Protein (6.3-8.2) g/dL Albumin (3.5-5.0) g/dL Coronavirus (PCR) Not Detected (Not Detectd) - EKG Data -: EKG Interpreted by Me EKG Comments: 12-lead Electrocardiogram Interpretation Note EKG was reviewed and interpreted by myself. 12-lead ECG performed at 1738 is interpreted by me as revealing normal sinus rhythm with first-degree AV block. At a rate of 73 beats per minute. Kirby is normal. MT interval is 226 ms, QRS duration is 80 ms, QTc is 416 ms.. There is an isolated T-wave inversion in lead V5, as well as lead III with no reciprocal changes or ST segment changes.. R wave progression across the precordium was satisfactory. By my interpretation this EKG is non-diagnostic for acute ischemia. There is no prior EKG in our system for the patient. Disposition Clinical Impression: Syncope, Hyponatremia, Dehydration, Pulmonary fibrosis Disposition: ADMITTED IP TO THIS HOSP Condition: Serious Referrals: Jason Killian MD [Primary Care Provider] - 1-2 days
--- NOTE | 2021-07-24 18:44 | CT ---
EXAMINATION TYPE: CT brain wo con DATE OF EXAM: 07/24/2021 COMPARISON: 12/07/2016 HISTORY: Hit head CT DLP: 1090.4 mGycm Automated exposure control for dose reduction was used. There is cerebral cortical atrophy. There is no mass effect nor midline shift. There is no sign of in tracranial hemorrhage. Calvarium is intact. Skull base is intact. There is normal aeration of the mas toid sinuses. There is mild hypodensity in the white matter of both posterior parietal lobes. IMPRESSION: Mild atrophy. There is probably some mild parietal chronic small vessel ischemia. No acute intracrani al abnormality. No change.
--- NOTE | 2021-07-24 18:49 | XR ---
EXAMINATION TYPE: XR chest 2V DATE OF EXAM: 07/24/2021 COMPARISON: 06/30/2021 HISTORY: Chest pain TECHNIQUE: 2 views FINDINGS: There is no heart failure nor confluent pneumonic infiltrate. Costophrenic angles are clear . There are chest leads. Heart size is normal. There is mild increased interstitial markings. IMPRESSION: No active cardiopulmonary disease. No adverse change. There is probably some mild pulmona ry fibrosis.
[2021-07-24 20:12] LABS: Basophils % (A) 0 %; Eosinophils # (A) 0.3 k/uL (0-0.7); Eosinophils % (A) 3 %; HCT 37.4 % (34.0-46.0); HGB 13.1 gm/dL (11.4-16.0); Lymphocytes # (A) 2.6 k/uL (1.0-4.8); Lymphocytes % (A) 21 %; MCH 30.4 pg (25.0-35.0); MCV 87.1 fL (80.0-100.0); Mean Platelet Volume 7.6; Monocytes # (A) 0.9 k/uL (0-1.0); Monocytes % (A) 7 %; Neutrophils # (A) 8.6 k/uL (1.3-7.7); Neutrophils % (A) 68 %; Platelet Count 297 k/uL (150-450); RDW 12.9 % (11.5-15.5); WBC 12.5 k/uL (3.8-10.6)
[2021-07-24 20:26] LABS: Albumin 4.2 g/dL (3.5-5.0); Calcium 9.9 mg/dL (8.4-10.2); Total Bilirubin 0.8 mg/dL (0.2-1.3); Total Protein 7.4 g/dL (6.3-8.2)
[2021-07-24 20:33] LABS: Partial Thromboplastin Time 23.3 sec (22.0-30.0); Prothrombin Time 10.3 sec (9.0-12.0)
[2021-07-24 20:34] LABS: Potassium 5.2 mmol/L (3.5-5.1)
[2021-07-24] MEDS ORDERED: ACETAMINOPHEN TAB 325 MG TAB PO PRN (21:11)
[2021-07-24 21:53] LABS: Appearance,Urine Clear (Clear); Bilirubin,Urine Negative (Negative); Blood,Urine Negative (Negative); Color,Urine Light Yellow; Glucose,Urine (UA) Negative (Negative); Ketones,Urine Negative (Negative); Leukocyte Esterase,Urine Negative (Negative); Nitrite,Urine Negative (Negative); PH, Urine 6.5 (5.0-8.0); Protein,Urine Negative (Negative); Specific Gravity,Urine 1.006 (1.001-1.035); Urobilinogen,Urine <2.0 mg/dL (<2.0)
[2021-07-25 02:59] LABS: Basophils # (A) 0.1 k/uL (0-0.2); Basophils % (A) 1 %; Eosinophils # (A) 0.5 k/uL (0-0.7); Eosinophils % (A) 4 %; HCT 36.9 % (34.0-46.0); HGB 12.9 gm/dL (11.4-16.0); Lymphocytes # (A) 3.6 k/uL (1.0-4.8); Lymphocytes % (A) 31 %; MCH 30.9 pg (25.0-35.0); MCHC 35.1 g/dL (31.0-37.0); MCV 88.2 fL (80.0-100.0); Mean Platelet Volume 7.5; Monocytes # (A) 0.7 k/uL (0-1.0); Monocytes % (A) 6 %; Neutrophils # (A) 6.5 k/uL (1.3-7.7); Neutrophils % (A) 56 %; Platelet Count 309 k/uL (150-450); RBC 4.18 m/uL (3.80-5.40); RDW 12.9 % (11.5-15.5); WBC 11.6 k/uL (3.8-10.6)
[2021-07-25 03:18] LABS: Calcium 9.6 mg/dL (8.4-10.2); Magnesium 1.9 mg/dL (1.6-2.3); Potassium 4.7 mmol/L (3.5-5.1)
[2021-07-25] MEDS: LEVOTHYROXINE 75 MCG TAB PO SCH (08:14)
[2021-07-25] MEDS: lisinopriL 20 MG TAB PO SCH (10:23)
[2021-07-25] MEDS: ASPIRIN 81 MG PO SCH (10:24)
[2021-07-25] MEDS: ENOXAPARIN 30 MG/0.3 ML SYRINGE SQ SCH (10:24)
[2021-07-25] MEDS: PANTOPRAZOLE 40 MG TABLET PO SCH (10:24)
[2021-07-25] MEDS ORDERED: LORazepam 0.5 MG TAB PO PRN (11:29)
[2021-07-25] MEDS ORDERED: ALBUTEROL NEBULIZED 2.5 MG/3 ML INHALATION PRN (11:29)
--- NOTE | 2021-07-25 12:52 | P.HPIM ---
History of Present Illness H&P Date: 07/25/21 HISTORY OF PRESENT ILLNESS This is an 85-year-old female patient of Dr. Chow with past medical history of hypertension, hypothyroidism, breast cancer diagnosed in 2000 status post lumpectomy. Patient came in the hospital due to passing out at home. She states she is on Lasix and has been following a low-sodium diet with her . She has recently been noupper respiratory infection on steroids and doxycycline. She states she is on day #4. She is complaining of phlegm production, throat sounding gravelly and hard to talk. She was seen by ENT and had laryngitis could be done in the emergency center and found that her larynx was not closing completely and patient was referred to speech therapy which she attended on one occasion. She is history that she was up to the bathroom and she had just gotten off the toilet after urinating and then she doesn't remember anything but was found on the floor by her who was nearby at the time. Duration of unconsciousness was brief. She states she has had some looser stools since she's been on antibiotics. Patient was found to be afebrile, heart rate 73, blood pressure 100/65 and pulse ox 100% on room air. WBC was 12.5. Sodium 122, potassium 5.2, chloride 88, CO2 25, BUN 25 and creatinine 0.95. Troponins negative on 3 draws. Urinalysis negative for infection. Coronavirus PCR not detected. CAT scan of the brain Revealed mild atrophy. There is probably some mild parietal chronic small vessel ischemia. No acute intracranial abnormality. Chest x-ray revealed no active cardiac or coronary disease. Probably some mild pulmonary fibrosis. Patient was placed on the observation unit, started on IV fluids, carotid ultrasound ordered, consults admitted for cardiology for syncope and nephrology for hyponatremia. REVIEW OF SYSTEMS Constitutional: No fever, no chills, no night sweats. No weight change. No weakness, fatigue or lethargy. No daytime sleepiness. EENT: No headache. No blurred vision or double vision, no loss of vision. No loss of Hearing, no ringing in the ears, no dizziness. No nasal drainage or congestion. No epistaxis. No sore throat. Lungs: No shortness of breath, cough, no sputum production. No wheezing. Cardiovascular: No chest pain, no lower extremity edema. No palpitations. No paroxysmal nocturnal dyspnea. No orthopnea. No lightheadedness or dizziness. Reported syncopal episodes. Abdominal: No abdominal pain. No nausea, vomiting. Reported diarrhea. No constipation. No bloody or tarry stools. No loss of appetite. Genitourinary: No dysuria, increased frequency, urgency. No urinary retention. Musculoskeletal: No myalgias. No muscle weakness, no gait dysfunction, no frequent falls. No back pain. No neck pain. Integumentary: No wounds, no lesions. No rash or pruritus. No unusual bruising. No change in hair or nails. Neurologic: No aphasia. No facial droop. No change in mentation. No head injury. No headache. No paralysis. No paresthesia. Psychiatric: No depression. No anxiety. No mood swings. Endocrine: No abnormal blood sugars. No weight change. No excessive sweating or thirst. No cold intolerance. SOCIAL HISTORY Patient was a smoker and quit in 1965. She drinks alcohol rarely. She lives at home with her . She drives, does not need DME for ambulation, no CPAP, nebulizer, oxygen at home. FAMILY HISTORY Mother at age 94 from old age. Father at age 70 from myocardial infarction but had history of alcohol abuse and smoking. Patient has 1 brother that from lung cancer. She has one sister that from breast cancer and one from Parkinson's disease. Patient is one sister living with no major medica l problems. Patient has 4 sons and one has history of coronary artery disease status post CABG. PHYSICAL EXAMINATION Gen: This is an 85-year-old female. Patient is resting in bed and appears to be comfortable and in no acute distress. is at bedside. HEENT: Head is atraumatic, normocephalic. Pupils equal, round. Sclerae is anicteric. NECK: Supple. No JVD. No lymphadenopathy. No thyromegaly. LUNGS: Clear to auscultation. No wheezes or rhonchi. No intercostal retractions. HEART: Regular rate and rhythm. No murmur. ABDOMEN: Soft. Bowel sounds are present. No masses. No tenderness. EXTREMITIES: No pedal edema. No calf tenderness. Dorsalis pedis palpable bilaterally. NEUROLOGICAL: Patient is awake, alert and oriented x3. Cranial nerves 2 through 12 are grossly intact. ASSESSMENT AND PLAN 1. Syncopal episode most likely secondary to hypotension from blood pressure medications, hyponatremia, rule out cardiac arrhythmia, carotid stenosis. Carotid ultrasound ordered. Hold amlodipine, clonidine, triamterene hydr ochlorothiazide and lisinopril decreased from 40 mg daily to 20 mg daily. 2. Severe hyponatremia. Patient started on 0.9 normal saline 75 mL per hour and consult with nephrology. 3. Dehydration secondary to diarrhea from antibiotics. Continue IV fluids and encourage oral intake. 4. Upper respiratory infection. Patient on oral steroids and antibiotics as an outpatient. 5. Hypertension. Continue lisinopril at decreased dose of 20 mg daily. Hold amlodipine, clonidine, triamterene hydrochlorothiazide. 6. History of breast cancer status post lumpectomy. 7. Gastroesophageal reflux disease and GI prophylaxis. Continue Protonix 40 mg daily. 8. DVT prophylaxis. SCDs and TREVER hose. 9. COVID-19 testing negative. Patient has been hospitalized during a pandemic. Patient will be admitted to the hospital for a minimum of 2 night stay. DISCHARGE PLAN Home. Impression and plan of care have been directed as dictated by the signing physician. Ольга Johnson nurse practitioner acting as scribe for signing physician. Past Medical History Past Medical History: Hypertension, Thyroid Disorder Additional Past Medical History / Comment(s): christophe espinoza lumpectomy History of Any Multi-Drug Resistant Organisms: None Reported Past Surgical History: Adenoidectomy, Cholecystectomy, Joint Replacement, Orthopedic Surgery, Tonsillectomy Additional Past Surgical History / Comment(s): fetus removal, bilateral total knee arthroplasty, left hip arthroplasty, breast lumpectomy in 1999. Past Psychological History: No Psychological Hx Reported Past Alcohol Use History: Rare Past Drug Use History: None Reported Medications and Allergies Home Medications Medication Instructions Recorded Confirmed Type Aspirin 81 mg PO HS 09/08/16 07/24/21 History Levothyroxine Sodium [Synthroid] 75 mcg PO DAILY 09/08/16 07/24/21 History Multivit-Min/FA/Lycopen/Lutein 1 tab PO DAILY 09/08/16 07/24/21 History [Centrum Silver Tablet] Tolterodine Tartrate [Detrol LA] 4 mg PO DAILY 09/08/16 07/24/21 History Omeprazole 20 mg PO DAILY 10/05/18 07/24/21 History Albuterol Inhaler [Ventolin Hfa 1 - 2 puff INHALATION RT-Q6H PRN 07/24/21 07/24/21 History Inhaler] Celecoxib [CeleBREX] 200 mg PO DAILY 07/24/21 07/24/21 History Doxycycline Hyclate 100 mg PO BID 07/24/21 07/24/21 History Gabapentin [Neurontin] 300 mg PO BID 07/24/21 07/24/21 History LORazepam [Ativan] 0.5 - 1 mg PO DAILY PRN 07/24/21 07/24/21 History Loratadine [Alavert] 10 mg PO DAILY 07/24/21 07/24/21 History Pilocarpine HCl 5 mg PO BID 07/24/21 07/24/21 History Triamterene/Hydrochlorothiazid 1 tab PO DAILY 07/24/21 07/24/21 History [Triamterene-Hctz 37.5-25 mg Tb] amLODIPine [Norvasc] 5 mg PO DAILY 07/24/21 07/24/21 History cloNIDine HCL 0.1 mg PO Q6H PRN 07/24/21 07/25/21 History lisinopriL 40 mg PO DAILY 07/24/21 07/24/21 History predniSONE 10 mg PO BID 07/24/21 07/24/21 History Allergies Allergy/AdvReac Type Severity Reaction Status Date / Time adhesive tape Allergy Severe Rash/Hives Verified 07/24/21 21:51 povidone-iodine Allergy Rash/Hives Verified 07/24/21 21:51 [From Betadine] Sulfa (Sulfonamide Allergy Rash/Hives Verified 07/24/21 21:51 Antibiotics) Physical Exam Vitals: Vital Signs Temp Pulse Pulse Resp BP BP Pulse Ox 07/25/21 08:13 97.5 F L 65 16 118/60 96 07/25/21 08:00 97.6 F 72 16 101/56 95 07/25/21 05:00 65 16 118/60 96 07/25/21 00:42 97.5 F L 80 20 106/65 97 07/24/21 20:38 97.8 F 75 16 103/67 96 07/24/21 17:18 96.9 F L 73 18 100/65 100 Intake and Output 07/24/21 07/25/21 07/25/21 22:59 06:59 14:59 Other: Weight 72.575 kg Results CBC & Chem 7: 07/25/21 02:31 07/25/21 02:31 Labs: Abnormal Lab Results - Last 24 Hours (Table) 07/24/21 07/24/21 07/25/21 Range/Units 19:49 19:49 02:31 WBC 12.5 H 11.6 H (3.8-10.6) k/uL Neutrophils # 8.6 H (1.3-7.7) k/uL Sodium 122 L (137-145) mmol/L Potassium 5.2 H (3.5-5.1) mmol/L Chloride 88 L (98-107) mmol/L BUN 25 H (7-17) mg/dL Glucose (74-99) mg/dL AST 43 H (14-36) U/L 07/25/21 Range/Units 02:31 WBC (3.8-10.6) k/uL Neutrophils # (1.3-7.7) k/uL Sodium 125 L (137-145) mmol/L Potassium (3.5-5.1) mmol/L Chloride 94 L (98-107) mmol/L BUN 21 H (7-17) mg/dL Glucose 114 H (74-99) mg/dL AST (14-36) U/L
--- NOTE | 2021-07-25 13:16 | P.CRDCN ---
History of Present Illness History of present illness: HISTORY OF PRESENTING ILLNESS This is a pleasant 85-year-old female past medical history significant for hypertension, hypothyroidism, breast cancer s/p lumpectomy. She does not follow with a [employer]. We have been asked to see in consultation for syncope. Patient presents emergency department after a syncopal episode at home. She states she was up and went to the bathroom and she had just gotten off the toilet after urinating and then she states she fell. She doesn't remember anyt mel but was found on the floor by her . She does believe that she did lose consciousness but it was brief. She denies chest pain, shortness of breath, palpitations, dizziness, loss of bladder or stool. She states that she is on Lasix and has been following a low sodium diet with her . She also states she has recently been diagnosed with an respiratory infection on steroids and doxycycline. She denies history of CAD, [place], Stroke, Diabetes. DIAGNOSTICS EKG reveals sinus rhythm, first-degree AV block, heart rate 73, T wave inversion in leads III and V5. No prior EKG to compare. Telemetry tracings indicate sinus mechanism, heart rate in the 60s-80s Brain CT with no acute intracranial process Chest xray no active cardiopulmonary disease. Laboratory reviewed, WBC 11.6, hemoglobin 12.9, platelets 309, d-dimer 0.8, sodium 125, potassium 4.7, BUN 21, serum creatinine 0.8, troponin negative 3, UA negative,COVID 19 PCR negative Current cardiac medications include lisinopril 40 mg daily, amlodipine 5 mg daily, aspirin 81mgdaily REVIEW OF SYSTEMS At the time of my exam: CONSTITUTIONAL: Denies fever or chills. +syncope CARDIOVASCULAR: Denies chest pain, shortness of breath, orthopnea, PND or palpitations. RESPIRATORY: Denies cough. GASTROINTESTINAL: Denies abdominal pain, diarrhea, constipation, nausea or vomiting. MUSCULOSKELETAL: Denies myalgias. NEUROLOGIC: Denies numbness, tingling, headacbe or weakness. ENDOCRINE: Denies fatigue, weight change, polydipsia or polyurina. GENITOURINARY: Denies burning, hematuria or urgency with micturation. HEMATOLOGIC: Denies history of anemia or bleeding. PHYSICAL EXAMINATION Blood pressure 118/60, heart rate 65, afebrile, oxygen saturation is greater than 92% on room air CONSTITUTIONAL: No apparent distress. HEENT: Head is normocephalic. Pupils are equal, round. Sclerae anicteric. Mucous membranes of the mouth are moist. No JVD. No carotid bruit. CHEST EXAMINATION: Lungs are clear to auscultation. No chest wall tenderness is noted on palpation or with deep breathing. HEART EXAMINATION: Regular rate and rhythm. S1, S2 heard. Systolic ejection murmur at left sternal border and apex ABDOMEN: Soft, nontender. Positive bowel sounds. EXTREMITIES: 2+ peripheral pulses, no lower extremity edema and no calf tendern ess. NEUROLOGIC EXAMINATION: Patient is awake, alert and oriented x3. ASSESSMENT Syncopal episode, likely vasovagal Hyponatremia Dehydration Hypertension History of breast cancer History of hypothyroidism Recent upper respiratory infection PLAN Agree with decreasing lisinopril to 20mg daily and holding amlodipine Discontinue clonidine Continue IV Fluids 75cc/hr Obtain 2D echocardiogram Continue cardiac telemetry to rule out arrhythmia Repeat BMP in the morning Further recommendations based on clinical course Nurse Practitioner note has been reviewed, I agree with a documented findings and plan of care. Patient was seen and examined. Past Medical History Past Medical History: Hypertension, Thyroid Disorder Additional Past Medical History / Comment(s): christophe espinoza lumpectomy History of Any Multi-Drug Resistant Organisms: None Reported Past Surgical History: Adenoidectomy, Cholecystectomy, Joint Replacement, Orthopedic Surgery, Tonsillectomy Additional Past Surgical History / Comment(s): fetus removal Past Psychological History: No Psychological Hx Reported Past Alcohol Use History: Rare Past Drug Use History: None Reported Medications and Allergies Home Medications Medication Instructions Recorded Confirmed Type Aspirin 81 mg PO HS 09/08/16 07/24/21 History Levothyroxine Sodium [Synthroid] 75 mcg PO DAILY 09/08/16 07/24/21 History Multivit-Min/FA/Lycopen/Lutein 1 tab PO DAILY 09/08/16 07/24/21 History [Centrum Silver Tablet] Tolterodine Tartrate [Detrol LA] 4 mg PO DAILY 09/08/16 07/24/21 History Omeprazole 20 mg PO DAILY 10/05/18 07/24/21 History Albuterol Inhaler [Ventolin Hfa 1 - 2 puff INHALATION RT-Q6H PRN 07/24/21 07/24/21 History Inhaler] Celecoxib [CeleBREX] 200 mg PO DAILY 07/24/21 07/24/21 History Doxycycline Hyclate 100 mg PO BID 07/24/21 07/24/21 History Gabapentin [Neurontin] 300 mg PO BID 07/24/21 07/24/21 History LORazepam [Ativan] 0.5 - 1 mg PO DAILY PRN 07/24/21 07/24/21 History Loratadine [Alavert] 10 mg PO DAILY 07/24/21 07/24/21 History Pilocarpine HCl 5 mg PO BID 07/24/21 07/24/21 History Triamterene/Hydrochlorothiazid 1 tab PO DAILY 07/24/21 07/24/21 History [Triamterene-Hctz 37.5-25 mg Tb] amLODIPine [Norvasc] 5 mg PO DAILY 07/24/21 07/24/21 History cloNIDine HCL 0.1 mg PO Q6H PRN 07/24/21 07/25/21 History lisinopriL 40 mg PO DAILY 07/24/21 07/24/21 History predniSONE 10 mg PO BID 07/24/21 07/24/21 History Allergies Allergy/AdvReac Type Severity Reaction Status Date / Time adhesive tape Allergy Severe Rash/Hives Verified 07/24/21 21:51 povidone-iodine Allergy Rash/Hives Verified 07/24/21 21:51 [From Betadine] Sulfa (Sulfonamide Allergy Rash/Hives Verified 07/24/21 21:51 Antibiotics) Physical Exam Vitals: Vital Signs Temp Pulse Pulse Resp BP BP Pulse Ox 07/25/21 08:13 97.5 F L 65 16 118/60 96 07/25/21 08:00 97.6 F 72 16 101/56 95 07/25/21 05:00 65 16 118/60 96 07/25/21 00:42 97.5 F L 80 20 106/65 97 07/24/21 20:38 97.8 F 75 16 103/67 96 07/24/21 17:18 96.9 F L 73 18 100/65 100 Intake and Output 07/24/21 07/25/21 07/25/21 22:59 06:59 14:59 Other: Weight 72.575 kg Results 07/25/21 02:31 07/25/21 02:31 Cardiac Enzymes 07/24/21 07/24/21 07/25/21 Range/Units 19:49 19:49 00:08 AST 43 H (14-36) U/L Troponin I <0.012 <0.012 (0.000-0.034) ng/mL 07/25/21 Range/Units 02:31 AST (14-36) U/L Troponin I <0.012 (0.000-0.034) ng/mL Coagulation 07/24/21 Range/Units 19:49 PT 10.3 (9.0-12.0) sec APTT 23.3 (22.0-30.0) sec CBC 07/24/21 07/25/21 Range/Units 19:49 02:31 WBC 12.5 H 11.6 H (3.8-10.6) k/uL RBC 4.30 4.18 (3.80-5.40) m/uL Hgb 13.1 12.9 (11.4-16.0) gm/dL Hct 37.4 36.9 (34.0-46.0) % Plt Count 297 309 (150-450) k/uL Comprehensive Metabolic Panel 07/24/21 07/25/21 Range/Units 19:49 02:31 Sodium 122 L 125 L (137-145) mmol/L Potassium 5.2 H 4.7 (3.5-5.1) mmol/L Chloride 88 L 94 L (98-107) mmol/L Carbon Dioxide 25 23 (22-30) mmol/L BUN 25 H 21 H (7-17) mg/dL Creatinine 0.95 0.88 (0.52-1.04) mg/dL Glucose 94 114 H (74-99) mg/dL Calcium 9.9 9.6 (8.4-10.2) mg/dL AST 43 H (14-36) U/L ALT 24 (4-34) U/L Alkaline Phosphatase 65 (38-126) U/L Total Protein 7.4 (6.3-8.2) g/dL Albumin 4.2 (3.5-5.0) g/dL Current Medications Generic Name Dose Route Start Last Admin Trade Name Freq PRN Reason Stop Dose Admin Acetaminophen 650 mg 07/24/21 21:11 Acetaminophen Tab 325 Mg Tab PO Q6HR PRN Mild Pain or Fever > 100.5 Albuterol Sulfate 2.5 mg 07/25/21 11:29 Albuterol Nebulized 2.5 Mg/3 Ml INHALATION RT-Q6H PRN Shortness Of Breath Aspirin 81 mg 07/25/21 09:00 07/25/21 10:24 Aspirin 81 Mg PO 81 mg DAILY KOFI Administration Doxycycline Monohydrate 100 mg 07/25/21 21:00 Doxycycline 100 Mg Cap PO 07/30/21 23:59 BID KOFI Enoxaparin Sodium 30 mg 07/25/21 09:00 07/25/21 10:24 Enoxaparin 30 Mg/0.3 Ml Syringe SQ 30 mg DAILY KOFI Administration Gabapentin 300 mg 07/25/21 21:00 Gabapentin 300 Mg Cap PO BID [facility] Sodium Chloride 1,000 mls @ 75 mls/hr 07/25/21 11:45 Saline 0.9% IV .[id number] KOFI Levothyroxine Sodium 75 mcg 07/25/21 06:30 07/25/21 08:14 Levothyroxine 75 Mcg Tab PO Not Given DAILY@0630 KOFI Lisinopril 20 mg 07/25/21 09:00 07/25/21 10:23 Lisinopril 20 Mg Tab PO 20 mg DAILY KOFI Administration Loratadine 10 mg 07/26/21 09:00 Loratadine 10 Mg Tab PO DAILY KOFI Lorazepam 0.5 mg 07/25/21 11:29 Lorazepam 0.5 Mg Tab PO DAILY PRN Anxiety Pantoprazole Sodium 40 mg 07/25/21 09:00 07/25/21 10:24 Pantoprazole 40 Mg Tablet PO 40 mg DAILY KOFI Administration Intake and Output 07/24/21 07/25/21 07/25/21 22:59 06:59 14:59 Other: Weight 72.575 kg 07/25/21 02:31 07/25/21 02:31
--- NOTE | 2021-07-25 13:53 | US ---
EXAMINATION TYPE: US carotid duplex BILAT DATE OF EXAM: 07/25/2021 COMPARISON: CT CLINICAL HISTORY: syncope. Patient stated she fell standing up off commode. EXAM MEASUREMENTS: RIGHT: Peak Systolic Velocity (PSV) cm/sec ----- Right CCA: 76.5 ----- Right ICA: 78.7 ----- Right ECA: 68.8 ICA/CCA ratio: 1.0 RIGHT: End Diastole cm/sec ----- Right CCA: 17.1 ----- Right ICA: 20.4 ----- Right ECA: 11.7 LEFT: Peak Systolic Velocity (PSV) cm/sec ----- Left CCA: 72.1 ----- Left ICA: 91.9 ----- Left ECA: 65.5 ICA/CCA ratio: 1.3 LEFT: End Diastole cm/sec ----- Left CCA: 17.1 ----- Left ICA: 31.4 ----- Left ECA: 13.6 VERTEBRALS (direction of flow): Right Vertebral: Antegrade Left Vertebral: Antegrade Rhythm: Arrhythmia seen on images #[id number], and #[id number]. Mild to moderate irregular mixed plaque is noted at bilateral carotid bifurcation, but PSV is wnl [place] aterally. IMPRESSION: No evidence for hemodynamically significant stenosis. Criteria for Assigning % of Stenosis / Diameter reduction (Estimation based on the indirect measurements of the internal carotid artery velocities (ICA PSV). 1. Normal (no stenosis)=ICA PSV < 125 cm/s: ratio < 2.0: ICA EDV<40 cm/s. 2. Less than 50% stenosis=ICA PSV < 125 cm/s: ratio < 2.0: ICA EDV<40 cm/s. 3. 50 to 69% stenosis=ICA PSV of 125 to 230 cm/s: ration 2.0 ? 4.0: ICA EDV 40-100 cm/s. 4. Greater than 70% stenosis to near occlusion= ICA PSV > 230 cm/s: ratio > 4.0: ICA EDV > 100 cm/s. 5. Near occlusion= ICA PSV velocities may be low or undetectable: variable ratio and ICA EDV. 6. Total occlusion=unable to detect flow.
--- NOTE | 2021-07-25 16:41 | ECHOF ---
Referral Reason:syncope MEASUREMENTS -------- HEIGHT: 162.6 cm WEIGHT: 72.6 kg BP: RVIDd: 3.1 cm (< 3.3) IVSd: 0.9 cm (0.6 - 1.1) LVIDd: 2.9 cm (3.9 - 5.3) LVPWd: 1.2 cm (0.6 - 1.1) IVSs: 1.5 cm LVIDs: 1.7 cm LVPWs: 1.7 cm LAESV Index (A-L): 12.48 ml/m Ao Diam: 2.6 cm (2.0 - 3.7) AV Cusp: 1.8 cm (1.5 - 2.6) LA Diam: 2.4 cm (2.7 - 3.8) MV EXCURSION: 13.536 mm (> 18.000) MV EF SLOPE: 53 mm/s (70 - 150) EPSS: 0.6 cm MV E Varun: 0.51 m/s MV DecT: 168 ms MV A Varun: 0.89 m/s MV E/A Ratio: 0.58 AR PHT: 324 ms RAP: 5.00 mmHg RVSP: 11.51 mmHg FINDINGS -------- This was a technically adequate study. The left ventricular size is normal. Left ventricular wall thickness is normal. Overall left vent ricular systolic function is normal with, an EF between 55 - 60 %. The right ventricle is normal in size. The left atrial size is normal. The right atrial size is normal. The aortic valve is trileaflet and appears structurally normal. The mitral valve is normal. Mild mitral regurgitation is present. The tricuspid valve appears structurally normal. Mild tricuspid regurgitation present. Right vent ricular systolic pressure is normal at < 35 mmHg. There is no pulmonic regurgitation present. The aortic root size is normal. Normal inferior vena cava with normal inspiratory collapse consistent with estimated right atrial pre ssure of 5 mmHg. There is no pericardial effusion. CONCLUSIONS -------- 1. The left ventricular size is normal. 2. Left ventricular wall thickness is normal. 3. Overall left ventricular systolic function is normal with, an EF between 55 - 60 %. 4. Mild mitral regurgitation is present. 5. Mild tricuspid regurgitation present. 6. There is no pericardial effusion. [employer] MACHINE OPERATOR: Smita Rothman RDCS
[2021-07-25] MEDS: SODIUM CHLORIDE 0.9% 1,000 ML IV SCH ×2 (20:27→20:29)
[2021-07-25] MEDS: DOXYCYCLINE 100 MG CAP PO SCH (20:27)
[2021-07-25] MEDS: GABAPENTIN 300 MG CAP PO SCH (20:27)
[2021-07-26] MEDS: LEVOTHYROXINE 75 MCG TAB PO SCH (04:39)
[2021-07-26 05:29] LABS: Calcium 9.2 mg/dL (8.4-10.2); Potassium 4.6 mmol/L (3.5-5.1)
[2021-07-26] MEDS: SODIUM CHLORIDE 0.9% 1,000 ML IV SCH ×3 (07:39→21:52)
[2021-07-26] MEDS: lisinopriL 20 MG TAB PO SCH (07:40)
[2021-07-26] MEDS: GABAPENTIN 300 MG CAP PO SCH ×2 (07:44→19:55)
[2021-07-26] MEDS: ASPIRIN 81 MG PO SCH (07:44)
[2021-07-26] MEDS: ENOXAPARIN 30 MG/0.3 ML SYRINGE SQ SCH (07:44)
[2021-07-26] MEDS: DOXYCYCLINE 100 MG CAP PO SCH ×2 (07:44→19:55)
[2021-07-26] MEDS: PANTOPRAZOLE 40 MG TABLET PO SCH (07:44)
[2021-07-26] MEDS: LORATADINE 10 MG TAB PO SCH (07:44)
--- NOTE | 2021-07-26 12:00 | P.PN ---
Subjective This is a pleasant 85-year-old female past medical history significant for hypertension, hypothyroidism, breast cancer s/p lumpectomy. She does not follow with a ceo. We have been asked to see in consultation for syncope. Patient presents emergency department after a syncopal episode at home. She states she was up and went to the bathroom and she had just gotten off the toilet after urinating and then she states she fell. She doesn't remember anything but was found on the floor by her . She does believe that she did lose consciousness but it was brief. She denies chest pain, shortness of breath, palpitations, dizziness, loss of bladder or stool. She states that she is on Lasix and has been following a low sodium diet with her . She also states she has recently been diagnosed with an respiratory infection on steroids and doxycycline. She denies history of CAD, [place], Stroke, Diabetes. EKG revealed sinus rhythm, first-degree AV block, heart rate 73, T wave inversion in leads III and V5. No prior EKG to compare. Brain CT with no acute intracranial process Chest xray no active cardiopulmonary disease. 07/26/21: Patient seen at bedside, no acute distress. Patient with positive orthostatics. Telemetry reviewed patient sinus mechanism, heart rate 70s, less than 2 second pauses noted. No significant pauses, no arrhythmia noted. She continued to be hypotensive and her lisinopril is now held. Carotid ultrasound revealed no evidence of hemodynamically significant stenosis. Echocardiogram revealed EF 5560 percent, mild mitral occasional mild tricuspid regurgitation. Labs, sodium 128, potassium 4.6, BUN 29, serum creatinine 0.9. She is currently maintained on aspirin 81 mg daily, IV fluids, doxycycline, subcu Lovenox, Synthroid, Claritin, Protonix. All antihypertensives are being held. PHYSICAL EXAMINATION Blood pressure 100/57, heart rate 75, afebrile, saturations greater than 92% on room air CONSTITUTIONAL: No apparent distress. HEENT: Neck Supple. No JVD. CHEST EXAMINATION: Lungs are clear to auscultation. No chest wall tenderness is noted on palpation or with deep breathing. HEART EXAMINATION: Regular rate and rhythm. S1, S2 heard. Systolic ejection murmur at left sternal border and apex ABDOMEN: Soft, nontender. Positive bowel sounds. EXTREMITIES: 2+ peripheral pulses, no lower extremity edema and no calf tenderness. NEUROLOGIC EXAMINATION: Patient is awake, alert and oriented x3. ASSESSMENT Syncopal episode, likely vasovagal Orthostatic hypotension Hyponatremia Dehydration Hypertension History of breast cancer History of hypothyroidism Recent upper respiratory infection PLAN Continue IV Fluids Lisinopril and amlodipine, and triamterene hydrochlorothiazide on hold due to hypotension From a cardiology perspective, telemetry reviewed, no evidence of significant pauses or arrhythmia noted. Syncopal episode likely due to hypotension, orth ostatic hypotension and hyponatremia. We will follow the patient as needed. Please re-consult if any further questions or concerns. Nurse Practitioner note has been reviewed, I agree with a documented findings and plan of care. Patient was seen and examine Objective - Vital Signs Vital signs: Vital Signs Temp 97.8 F 07/26/21 07:38 Pulse 75 07/26/21 07:38 Resp 18 07/26/21 08:00 BP 100/57 07/26/21 07:38 Pulse Ox 98 07/26/21 07:38 Intake & Output 07/25/21 07/26/21 07/26/21 18:59 06:59 18:59 Intake Total 480 Balance 480 Weight 72.575 kg Intake: Oral 480 Other: # Voids 4 1 - Labs CBC & Chem 7: 07/25/21 02:31 07/26/21 04:25 Labs: Abnormal Lab Results - Last 24 Hours (Table) 07/25/21 07/25/21 07/26/21 Range/Units 12:24 15:12 04:25 D-Dimer 0.88 H (<0.60) mg/L FEU Sodium 128 L 128 L (137-145) mmol/L Chloride 95 L (98-107) mmol/L BUN 29 H (7-17) mg/dL Glucose 101 H (74-99) mg/dL
--- NOTE | 2021-07-26 12:25 | P.PN ---
Subjective Progress Note Date: 07/26/21 HISTORY OF PRESENT ILLNESS This is an 85-year-old female patient of Dr. Chow with past medical history of hypertension, hypothyroidism, breast cancer diagnosed in 1999 status post lumpectomy. Patient came in the hospital due to passing out at home. She states she is on Lasix and has been following a low-sodium diet with her . She has recently been noupper respiratory infection on steroids and doxycycline. She states she is on day #4. She is complaining of phlegm production, throat sounding gravelly and hard to talk. She was seen by ENT and had laryngitis could be done in the emergency center and found that her larynx was not closing completely and patient was referred to speech therapy which she attended on one occasion. She is history that she was up to the bathroom and she had just gotten off the toilet after urinating and then she doesn't remember anything but was found on the floor by her who was nearby at the time. Duration of unconsciousness was brief. She states she has had some looser stools since she's been on antibiotics. Patient was found to be afebrile, heart rate 73, blood pressure 100/65 and pulse ox 100% on room air. WBC was 12.5. Sodium 122, potassium 5.2, chloride 88, CO2 25, BUN 25 and creatinine 0.95. Troponins negative on 3 draws. Urinalysis negative for infection. Coronavirus PCR not detected. CAT scan of the brain Revealed mild atrophy. There is probably some mild parietal chronic small vessel ischemia. No acute intracranial abnormality. Chest x-ray revealed no active cardiac or coronary disease. Probably some mild pulmonary fibrosis. Patient was placed on the observation unit, started on IV fluids, carotid ultrasound ordered, consults admitted for cardiology for syncope and nephrology for hyponatremia. 07/26: Repeat sodium is 128. Unfortunately, due to lack of equipment, patient did not receive IV of normal saline at 75 mL per hour. Plan is to start this today. Patient has been seen by nephrology and also ordered IV fluids. Patient was afebrile, heart rate 75, blood pressure 100/57. Orthostatic vital signs minimally positive. Patient has been seen by cardiology for syncopal episode likely vasovagal with recommendations continue same plan. Carotid ultrasound revealed no evidence of hemodynamically significant stenosis. Echocardiogram reveals EF of 55-60%, mild mitral regurgitation, mild tricuspid regurgitation. REVIEW OF SYSTEMS Constitutional: No fever, no chills, no night sweats. No weight change. No weakness, fatigue or lethargy. No daytime sleepiness. EENT: No headache. No blurred vision or double vision, no loss of vision. No loss of Hearing, no ringing in the ears, no dizziness. No nasal drainage or congestion. No epistaxis. No sore throat. Lungs: No shortness of breath, cough, no sputum production. No wheezing. Cardiovascular: No chest pain, no lower extremity edema. No palpitations. No paroxysmal nocturnal dyspnea. No orthopnea. No lightheadedness or dizziness. Reported single syncopal episodes. Abdominal: No abdominal pain. No nausea, vomiting. Reported diarrhea. No constipation. No bloody or tarry stools. No loss of appetite. Genitourinary: No dysuria, increased frequency, urgency. No urinary retention. Musculoskeletal: No myalgias. No muscle weakness, no gait dysfunction, no frequent falls. No back pain. No neck pain. Integumentary: No wounds, no lesions. No rash or pruritus. No unusual bruising. No change in hair or nails. Neurologic: No aphasia. No facial droop. No change in mentation. No head injury. No headache. No paralysis. No paresthesia. Psychiatric: No depression. No anxiety. No mood swings. Endocrine: No abnormal blood sugars. No weight change. PHYSICAL EXAMINATION Gen: This is an 85-year-old female. Patient is resting in bed and appears to be comfortable and in no acute distress. HEENT: Head is atraumatic, normocephalic. Pupils equal, round. Sclerae is anicteric. NECK: Supple. No JVD. No lymphadenopathy. No thyromegaly. LUNGS: Clear to auscultation. No wheezes or rhonchi. No intercostal retractions. HEART: Regular rate and rhythm. No murmur. ABDOMEN: Soft. Bowel sounds are present. No masses. No tenderness. EXTREMITIES: No pedal edema. No calf tenderness. Dorsalis pedis palpable bilaterally. NEUROLOGICAL: Patient is awake, alert and oriented x3. Cranial nerves 2 through 12 are grossly intact. ASSESSMENT AND PLAN 1. Syncopal episode most likely secondary to hypotension from blood pressure medications, hyponatremia, rule out cardiac arrhythmia, carotid stenosis. C arotid ultrasound ordered. Hold amlodipine, clonidine, triamterene hydrochlorothiazide and lisinopril decreased from 40 mg daily to 20 mg daily. 2. Severe hyponatremia. Patient started on 0.9 normal saline 75 mL per hour and consult with nephrology. 3. Dehydration secondary to diarrhea from antibiotics. Continue IV fluids and encourage oral intake. 4. Upper respiratory infection. Patient on oral steroids and antibiotics as an outpatient. 5. Hypertension. Continue lisinopril at decreased dose of 20 mg daily. Hold amlodipine, clonidine, triamterene hydrochlorothiazide. 6. History of breast cancer status post lumpectomy. 7. Gastroesophageal reflux disease and GI prophylaxis. Continue Protonix 40 mg daily. 8. DVT prophylaxis. SCDs and TREVER hose. 9. COVID-19 testing negative. Patient has been hospitalized during a pandemic. DISCHARGE PLAN Home. Impression and plan of care have been directed as dictated by the signing physician. Ольга Johnson nurse practitioner acting as scribe for signing physician. Objective - Vital Signs Vital signs: Vital Signs Temp 97.8 F 07/26/21 07:38 Pulse 75 07/26/21 07:38 Resp 18 07/26/21 08:00 BP 100/57 07/26/21 07:38 Pulse Ox 98 07/26/21 07:38 Intake & Output 07/25/21 07/26/21 07/26/21 18:59 06:59 18:59 Intake Total 480 Balance 480 Weight 72.575 kg Intake: Oral 480 Other: # Voids 4 1 - Labs CBC & Chem 7: 07/25/21 02:31 07/26/21 04:25 Labs: Abnormal Lab Results - Last 24 Hours (Table) 07/25/21 07/25/21 07/26/21 Range/Units 12:24 15:12 04:25 D-Dimer 0.88 H (<0.60) mg/L FEU Sodium 128 L 128 L (137-145) mmol/L Chloride 95 L (98-107) mmol/L BUN 29 H (7-17) mg/dL Glucose 101 H (74-99) mg/dL
--- NOTE | 2021-07-26 14:50 | CONS ---
CONSULTATION REASON FOR CONSULT: Hyponatremia. HISTORY OF PRESENT ILLNESS: Patient is an 85-year-old female who was admitted to the hospital with complaints of increased weakness. The patient has had diarrhea for about 5-6 days prior to admission as she was taking antibiotics for her respiratory infection. The patient was found to have a serum sodium of 122. She did get a fluid bolus initially and was maintained on saline at 75 mL an hour for a short period of time. Her sodium is up to 128 today. The patient states she has been eating better and has increased her oral intake. She denied use of any diuretics at home prior to admission. The patient states she follows a very strict low-potassium diet due to her having CHF and renal failure. Her home medication list does include triamterene/hydrochlorothiazide. The patient's blood pressure has been on the lower side with systolic 82-96 mmHg. Urine osmolality is currently pending. Patient does have a history of breast cancer diagnosed in 1999 and is status post lumpectomy. Chest x-ray on this admission does not show any significant abnormal findings. PAST MEDICAL HISTORY: History of breast cancer, hypertension, hypothyroidism. PAST SURGICAL HISTORY: Adenoidectomy, lumpectomy from the breast, bilateral knee arthroplasty, left hip arthroplasty. SOCIAL HISTORY: Negative for smoking, drug abuse or alcohol abuse. MEDICATIONS: Medications at home included Synthroid, Celebrex, Neurontin, Ativan, Alavert, triamterene, hydrochlorothiazide Norvasc, lisinopril, prednisone. ALLERGIES: INCLUDE TAPE, BETADINE, SULFA. REVIEW OF SYSTEMS: As per HPI. Other systems negative. EXAMINATION: Currently awake, comfortable, not in any acute distress. Blood pressure 100/57, heart rate 75 per minute. She is afebrile. Examination of the HEART S1, S2. Examination of the LUNGS, bilateral breath sounds are heard. ABDOMEN is soft, nontender. Examination lower EXTREMITIES shows no evidence of edema. 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 LAB: Show sodium 128, potassium 4.6, chloride 95, BUN 29, creatinine 0.9. ASSESSMENT: 1. Hyponatremia currently hypovolemic status post fluid bolus on initial admission and patient also received normal saline for a short period of time, which was discontinued yesterday around noon. Since then, patient has had good oral intake. Her sodium is up to 128 now. Urine osmolality is currently pending. Chest x-ray does not show any significant abdominal findings. The patient's blood pressure was also low at the time of admission. At this time, I will start normal saline and the patient is advised to hold off on her Dyazide post discharge. She will need repeat labs done in 4-5 days post discharge. 2. Hypothyroidism. Check TSH if not checked this admission. Previous TSH was 4.1 in January of 2021. 3. Recent respiratory tract infection, status post antibiotics and maintained on steroids. 4. Hypertension, blood pressure is currently low. We will hold off on the antihypertensive medications for now, particularly diuretics. PLAN: Hold antihypertensive medications and resume saline. May continue with antibiotics. Check urine osmolality and hold off on the thiazide diuretics. Thank you for this consultation. We will continue to follow the patient with you during her hospitalization. MMODL / IJN: [id number] /
[2021-07-26 15:03] LABS: Appearance,Urine Clear (Clear); Bilirubin,Urine Negative (Negative); Blood,Urine Negative (Negative); Color,Urine Light Yellow; Glucose,Urine (UA) Negative (Negative); Ketones,Urine Negative (Negative); Leukocyte Esterase,Urine Small (Negative); Nitrite,Urine Negative (Negative); Protein,Urine Negative (Negative); Specific Gravity,Urine 1.005 (1.001-1.035); Squamous Epithelial Cell,Urine <1 /hpf (0-4); Urobilinogen,Urine <2.0 mg/dL (<2.0); WBC,Urine 5 /hpf (0-5)
[2021-07-27] MEDS: SODIUM CHLORIDE 0.9% 1,000 ML IV SCH (04:58)
[2021-07-27] MEDS: LEVOTHYROXINE 75 MCG TAB PO SCH (05:31)
[2021-07-27] MEDS: DOXYCYCLINE 100 MG CAP PO SCH (10:40)
[2021-07-27] MEDS: ENOXAPARIN 30 MG/0.3 ML SYRINGE SQ SCH (10:40)
[2021-07-27] MEDS: LORATADINE 10 MG TAB PO SCH (10:40)
[2021-07-27] MEDS: ASPIRIN 81 MG PO SCH (10:40)
[2021-07-27] MEDS: GABAPENTIN 300 MG CAP PO SCH (10:40)
[2021-07-27] MEDS: PANTOPRAZOLE 40 MG TABLET PO SCH (10:40)
[2021-07-27 10:43] LABS: Basophils # (A) 0.1 k/uL (0-0.2); Basophils % (A) 1 %; Eosinophils # (A) 0.6 k/uL (0-0.7); Eosinophils % (A) 7 %; HCT 33.8 % (34.0-46.0); HGB 11.4 gm/dL (11.4-16.0); Lymphocytes # (A) 2.3 k/uL (1.0-4.8); Lymphocytes % (A) 26 %; MCH 30.8 pg (25.0-35.0); MCHC 33.7 g/dL (31.0-37.0); MCV 91.5 fL (80.0-100.0); Mean Platelet Volume 7.7; Monocytes # (A) 0.6 k/uL (0-1.0); Monocytes % (A) 7 %; Neutrophils # (A) 5.1 k/uL (1.3-7.7); Neutrophils % (A) 58 %; Platelet Count 294 k/uL (150-450); RBC 3.69 m/uL (3.80-5.40); RDW 13.3 % (11.5-15.5); WBC 8.7 k/uL (3.8-10.6)
[2021-07-27 10:55] LABS: African American GFR (CKD) >90 (>60 ml/min/1.73 sqM); Anion Gap 8 mmol/L; Blood Urea Nitrogen 18 mg/dL (7-17); Carbon Dioxide 21 mmol/L (22-30); Chloride 105 mmol/L (98-107); Glucose 123 mg/dL (74-99); Non-African American GFR(CKD) 80 (>60 ml/min/1.73 sqM); Potassium 3.9 mmol/L (3.5-5.1); Sodium 134 mmol/L (137-145)
--- NOTE | 2021-07-27 11:35 | P.DS ---
Providers Date of admission: 07/24/21 21:11 Expected date of discharge: 07/27/21 Attending physician: Jason Killian Consults: 07/25/21 11:26 Consult Physician Routine Consulting Provider: Henrry Thomas Consult Reason/Comments: syncope Do you want consulting provider notified?: Yes 07/25/21 11:27 Consult Physician Routine Consulting Provider: Humble Thomas Consult Reason/Comments: hyponatremia Do you want consulting provider notified?: Yes [facility] Course: HISTORY OF PRESENT ILLNESS This is an 85-year-old female patient of Dr. Chow with past medical history of hypertension, hypothyroidism, breast cancer diagnosed in 1999 status post lumpectomy. Patient came in the hospital due to passing out at home. She states she is on Lasix and has been following a low-sodium diet with her . She has recently been noupper respiratory infection on steroids and doxycycline. She states she is on day #4. She is complaining of phlegm production, throat sounding gravelly and hard to talk. She was seen by ENT and had laryngitis could be done in the emergency center and found that her larynx was not closing completely and patient was referred to speech therapy which she attended on one occasion. She is history that she was up to the bathroom and she had just gotten off the toilet after urinating and then she doesn't remember anything but was found on the floor by her who was nearby at the time. Duration of unconsciousness was brief. She states she has had some looser stools since she's been on antibiotics. Patient was found to be afebrile, heart rate 73, blood pressure 100/65 and pulse ox 100% on room air. WBC was 12.5. Sodium 122, potassium 5.2, chloride 88, CO2 25, BUN 25 and creatinine 0.95. Troponins negative on 3 draws. Urinalysis negative for infection. Coronavirus PCR not detected. CAT scan of the brain Revealed mild atrophy. There is probably some mild parietal chronic small vessel ischemia. No acute intracranial abnormality. Chest x-ray revealed no active cardiac or coronary disease. Probably some mild pulmonary fibrosis. Patient was placed on the observation unit, started on IV fluids, carotid ultrasound ordered, consults admitted for cardiology for syncope and nephrology for hyponatremia. 07/26: Repeat sodium is 128. Unfortunately, due to lack of equipment, patient did not receive IV of normal saline at 75 mL per hour. Plan is to start this today. Patient has been seen by nephrology and also ordered IV fluids. Patient was afebrile, heart rate 75, blood pressure 100/57. Orthostatic vital signs minimally positive. Patient has been seen by cardiology for syncopal episode likely vasovagal with recommendations continue same plan. Carotid ultrasound revealed no evidence of hemodynamically significant stenosis. Echocardiogram reveals EF of 55-60%, mild mitral regurgitation, mild tricuspid regurgitation. 07/27: DISCHARGE DIAGNOSES 1. Syncopal episode most likely secondary to hypotension from blood pressure medications, hyponatremia, rule out cardiac arrhythmia, carotid stenosis. Carotid ultrasound ordered. Hold amlodipine, clonidine, triamterene hydrochlorothiazide and lisinopril decreased from 40 mg daily to 20 mg daily. 2. Severe hyponatremia. Patient started on 0.9 normal saline 75 mL per hour and consult with nephrology. 3. Dehydration secondary to diarrhea from antibiotics. Continue IV fluids and encourage oral intake. 4. Upper respiratory infection. Patient on oral steroids and antibiotics as an outpatient. 5. Hypertension. Continue lisinopril at decreased dose of 20 mg daily. Hold amlodipine, clonidine, triamterene hydrochlorothiazide. 6. History of breast cancer status post lumpectomy. 7. Gastroesophageal reflux disease and GI prophylaxis. Continue Protonix 40 mg daily. 8. DVT prophylaxis. SCDs and TREVER hose. 9. COVID-19 testing negative. Patient has been hospitalized during a pandemic. DISCHARGE PLAN Home. Greater than 35 minutes was utilized and coordinating patient's discharge. Impression and plan of care have been directed as dictated by the signing physician. Ольга Johnson nurse practitioner acting as scribe for signing physician. Patient Condition at Discharge: Serious Plan - Discharge Summary Discharge Rx Participant: No New Discharge Prescriptions: Continue Levothyroxine Sodium [Synthroid] 75 mcg PO DAILY Aspirin 81 mg PO HS Tolterodine Tartrate [Detrol LA] 4 mg PO DAILY Multivit-Min/FA/Lycopen/Lutein [Centrum Silver Tablet] 1 tab PO DAILY Omeprazole 20 mg PO DAILY Loratadine [Alavert] 10 mg PO DAILY predniSONE 10 mg PO BID Pilocarpine HCl 5 mg PO BID LORazepam [Ativan] 0.5 - 1 mg PO DAILY PRN PRN Reason: Anxiety Gabapentin [Neurontin] 300 mg PO BID Doxycycline Hyclate 100 mg PO BID Celecoxib [CeleBREX] 200 mg PO DAILY Albuterol Inhaler [Ventolin Hfa Inhaler] 1 - 2 puff INHALATION RT-Q6H PRN PRN Reason: Shortness Of Breath Discontinued lisinopriL 40 mg PO DAILY Triamterene/Hydrochlorothiazid [Triamterene-Hctz 37.5-25 mg Tb] 1 tab PO DAILY amLODIPine [Norvasc] 5 mg PO DAILY cloNIDine HCL 0.1 mg PO Q6H PRN PRN Reason: Hypertension Discharge Medication List Aspirin 81 mg PO HS 09/08/16 [History] Levothyroxine Sodium [Synthroid] 75 mcg PO DAILY 09/08/16 [History] Multivit-Min/FA/Lycopen/Lutein [Centrum Silver Tablet] 1 tab PO DAILY 09/08/16 [History] Tolterodine Tartrate [Detrol LA] 4 mg PO DAILY 09/08/16 [History] Omeprazole 20 mg PO DAILY 10/05/18 [History] Albuterol Inhaler [Ventolin Hfa Inhaler] 1 - 2 puff INHALATION RT-Q6H PRN 07/24/21 [History] Celecoxib [CeleBREX] 200 mg PO DAILY 07/24/21 [History] Doxycycline Hyclate 100 mg PO BID 07/24/21 [History] Gabapentin [Neurontin] 300 mg PO BID 07/24/21 [History] LORazepam [Ativan] 0.5 - 1 mg PO DAILY PRN 07/24/21 [History] Loratadine [Alavert] 10 mg PO DAILY 07/24/21 [History] Pilocarpine HCl 5 mg PO BID 07/24/21 [History] predniSONE 10 mg PO BID 07/24/21 [History] Follow up Appointment(s)/Referral(s): Henrry Thomas MD [STAFF PHYSICIAN] - 2 Weeks Jason Killian MD [Primary Care Provider] - 1-2 days
[2021-07-27 12:59] VITALS: BP 110/66; PULSE 81; RESP 17; TEMP 98.1
--- NOTE | 2021-07-27 15:15 | PN ---
PROGRESS NOTE Patient is seen for followup for hyponatremia, mostly hypovolemic and improved with saline administration. Urine osmolality was low at 203. Patient had also been following a strict low-sodium diet. She was maintained on thiazide diuretics prior to admission which is currently on hold now. EXAMINATION: Today patient is comfortable. Blood pressure 110/67, heart rate 78 per minute. She is afebrile. Examination shows no evidence of edema lower extremities. Patient is euvolemic. 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 LAB: Show sodium of 134, potassium 3.9, chloride 105, BUN 18, creatinine 0.69, hemoglobin 11.4. ASSESSMENT: 1. Hypovolemic hyponatremia, improved with saline administration. Patient is advised to hold off on thiazide diuretics for now. 2. Volume depletion, currently improved. 3. Hypothyroidism maintained on supplementation. 4. Recent respiratory tract infection status post antibiotics and maintained on steroids. PLAN: Patient is stable for discharge. Hold off on thiazide diuretics and repeat labs as outpatient in about one week's time. MMODL / IJN: [id number] /
== END 2021-07-27 13:49 | disposition home or self-care (01) | DRG 312 ==
LOC: EC 17:02 → 5NMEDONC 21:11 → 1SOBS 07-25 07:10
PROVIDERS: ADMIT Internal Medicine Geriatric Medicine; ATTEND Internal Medicine Geriatric Medicine
DX: I95.2 Hypotension due to drugs (principal); E87.1 Hypo-osmolality and hyponatremia; K52.1 Toxic gastroenteritis and colitis; T44.7X5A Adverse effect of beta-adrenoreceptor antagonists, initial encounter; Z20.822 Contact with and (suspected) exposure to COVID-19; I10 Essential (primary) hypertension; E86.0 Dehydration; J06.9 Acute upper respiratory infection, unspecified; E03.9 Hypothyroidism, unspecified; T36.95XA Adverse effect of unspecified systemic antibiotic, initial encounter; E86.1 Hypovolemia; E87.8 Other disorders of electrolyte and fluid balance, not elsewhere classified; Z96.653 Presence of artificial knee joint, bilateral; Z96.642 Presence of left artificial hip joint; Z79.52 Long term (current) use of systemic steroids; Z79.82 Long term (current) use of aspirin; Z79.890 Hormone replacement therapy; Z79.899 Other long term (current) drug therapy; Z87.891 Personal history of nicotine dependence; Z87.440 Personal history of urinary (tract) infections; Z98.890 Other specified postprocedural states; Z85.3 Personal history of malignant neoplasm of breast; Z86.19 Personal history of other infectious and parasitic diseases; Z79.1 Long term (current) use of non-steroidal anti-inflammatories (NSAID); Z82.49 Family history of ischemic heart disease and other diseases of the circulatory system; Z82.0 Family history of epilepsy and other diseases of the nervous system; Z80.3 Family history of malignant neoplasm of breast; Z80.1 Family history of malignant neoplasm of trachea, bronchus and lung
CPT/HCPCS: 36415; 70450; 71046; 80048; 80053; 81001; 81003; 83605; 83735; 83935; 84295; 84484; 85025; 85379; 85610; 85730; 87635; 93005; 93306; 93880; 96360; 96361; 99285

== ENCOUNTER → 2021-08-29 | Outpatient (CLI) | payer MEDICARE, BC ==
--- NOTE | 2021-08-29 14:20 | MM ---
Reason for exam: additional evaluation requested from prior study. Last mammogram was performed 1 year ago. History: Patient is postmenopausal and has history of breast cancer at age 64. Family history of breast cancer in sister at age 70. Malignant excisional biopsy of the right breast, January 31, 2000. Excisional biopsy of the left breast. Lumpectomy of the right breast. Chemotherapy. Radiation therapy of the right breast. Took estrogen for 1 year beginning at age 57. Took progesterone for 1 year beginning at age 57. Took tamoxifen for 13 years beginning at age 64. Physical Findings: Nurse did not find any significant physical abnormalities on exam. MG 3D Diag Mammo W/Cad RICARDO Bilateral CC and MLO view(s) were taken. Prior study comparison: August 25, 2020, bilateral MG 3d diag mammo w/cad RICARDO. August 25, 2019, bilateral MG 3d diag mammo w/cad RICARDO. The breast tissue is heterogeneously dense. This may lower the sensitivity of mammography. Finding #1: There is decreased size and architectural distortion in the right breast consistent with known excision and treatment changes. Finding #2: There are typically benign vascular, round calcifications in both breasts. There is no discrete abnormality. These results were verbally communicated with the patient and result sheet given to the patient on 08/29/21. ASSESSMENT: Benign, BI-RAD 2 RECOMMENDATION: Follow-up diagnostic mammogram of both breasts in 1 year.
== END | disposition home or self-care (01) ==
LOC: RADMAMWWP 12:50
PROVIDERS: ATTEND Internal Medicine Hematology & Oncology
DX: Z85.3 Personal history of malignant neoplasm of breast (principal)
CPT/HCPCS: 77066; G0279; 77062

== ENCOUNTER 2021-10-19 09:24 | Day surgery (SDC) | payer MEDICARE, BC ==
[~2021-10-19 09:24] MED LIST: ALPRAZolam 0.25 MG TAB PO PRN; ALPRAZolam 0.5 MG TAB PO PRN; ASPIRIN 325 MG TAB PO STA; NITROGLYCERIN SL TABS 0.4 MG TAB SUBLINGUAL PRN
[2021-10-19] MEDS ORDERED: SODIUM CHLORIDE 0.9% 1,000 ML IV ONE (09:44)
[2021-10-19 10:22] LABS: Basophils % (A) 0 %; Eosinophils # (A) 0.1 k/uL (0-0.7); Eosinophils % (A) 1 %; HCT 45.5 % (34.0-46.0); HGB 15.2 gm/dL (11.4-16.0); Lymphocytes # (A) 1.8 k/uL (1.0-4.8); Lymphocytes % (A) 12 %; MCH 31.5 pg (25.0-35.0); MCHC 33.3 g/dL (31.0-37.0); MCV 94.5 fL (80.0-100.0); Mean Platelet Volume 8.5; Monocytes # (A) 0.2 k/uL (0-1.0); Monocytes % (A) 1 %; Neutrophils # (A) 13.4 k/uL (1.3-7.7); Neutrophils % (A) 86 %; Platelet Count 315 k/uL (150-450); RBC 4.82 m/uL (3.80-5.40); RDW 13.9 % (11.5-15.5); WBC 15.5 k/uL (3.8-10.6)
[2021-10-19] MEDS ORDERED: LIDOCAINE 1% INJ 10MG/ML (20 ML MDV) ONE (10:47)
[2021-10-19] MEDS ORDERED: MIDAZOLAM 2 MG/2 ML VIAL IV ONE (10:55)
[2021-10-19] MEDS ORDERED: LIDOCAINE 1% INJ 10MG/ML (20 ML MDV) SQ ONE (10:56)
[2021-10-19] MEDS ORDERED: HEPARIN SODIUM 1,000 UN/ML (10ML VL) ONE (11:15)
[2021-10-19] MEDS: HEPARIN SODIUM 1,000 UN/ML (10ML VL) IV ONE ×5 (11:17→12:24)
[2021-10-19] MEDS ORDERED: IOPAMIDOL-370 100ML BTL INJ ONE ×2 (11:21→12:40)
[2021-10-19 11:51] LABS: African American GFR (CKD) >90 (>60 ml/min/1.73 sqM); Anion Gap 9 mmol/L; Blood Urea Nitrogen 19 mg/dL (7-17); Calcium 9.3 mg/dL (8.4-10.2); Carbon Dioxide 24 mmol/L (22-30); Chloride 105 mmol/L (98-107); Glucose 153 mg/dL (74-99); Non-African American GFR(CKD) 86 (>60 ml/min/1.73 sqM); Potassium 3.6 mmol/L (3.5-5.1); Sodium 138 mmol/L (137-145)
[2021-10-19] MEDS ORDERED: HYDROmorphone 1 MG/ML 1 ML SYRINGE IVP ONE (12:06)
[2021-10-19] MEDS ORDERED: IOPAMIDOL-370 50ML BTL INJ ONE (12:45)
[2021-10-19] MEDS ORDERED: CLOPIDOGREL 75 MG TAB ONE (12:49)
[2021-10-19] MEDS ORDERED: LORazepam 1 MG TAB PO PRN (12:54)
[2021-10-19] MEDS ORDERED: CLOPIDOGREL 75 MG TAB PO ONE (12:54)
[2021-10-19] MEDS ORDERED: MAG HYDROX/AL HYDROX/SIMETH 30 ML CUP PO PRN (12:56)
[2021-10-19] MEDS ORDERED: RX INFO: IV CONTRAST WAS GIVEN 1 EACH MISC MISCELLANE PRN (12:56)
[2021-10-19] MEDS ORDERED: ATROPINE SULFATE 0.1 MG/ML 10ML SYRINGE IV PRN (12:56)
[2021-10-19] MEDS ORDERED: ZOLPIDEM 5 MG TAB PO PRN (12:56)
--- NOTE | 2021-10-19 14:05 | CC ---
CARDIAC CATHETERIZATION REPORT DATE OF SERVICE: 10/19/2021. PROCEDURE: 1. Left heart catheterization and coronary angiography. 2. PTCA and stenting of a complex bifurcation circumflex vessel with drug-eluting stents. PERFORMED BY: Dr. Re Thomas. ANESTHESIA: Moderate conscious sedation time was 1 hour 50 minutes. The patient was administered Versed. Oxygen saturation, hemodynamics and EKG were monitored closely. CLINICAL INFORMATION: Mrs. Elliot Eddy is an 85-year-old lady with a known history of hypertension, hyperlipidemia, and also documented syncope. She had a Lexiscan stress test which revealed inferior wall reversible defect with 45% ejection fraction and hypokinesia. She was therefore advised cardiac catheterization. Risks, benefits, options and rationale were explained to the patient and . She had a previous mastectomy and did not want any procedures from the arm and therefore I performed a femoral approach. PROCEDURE NOTE: Under local anesthesia and strict aseptic precautions, a 6-Liberian sheath was placed in the right femoral artery. Using a JL3.5 and JR4 catheters I performed coronary angiography and also checked LV pressures with a JR4 catheter. I then noted that there was significant circumflex lesion and proceeded to perform intervention in the same setting. Following the intervention procedure, sheath was taken out and TR band applied as per protocol and she was sent to the room in stable condition. The details of the procedure and results were discussed with the patient as well as her . CARDIAC CATHETERIZATION FINDINGS: RIGHT CORONARY ARTERY: This is a dominant vessel with about 40% mid lesion, bifurcates into larger PLV, smaller PDA. No significant disease in the dominant RCA. LEFT MAIN CORONARY ARTERY: Short, patent vessel free of significant disease. Bifurcates into LAD and circumflex. LEFT ANTERIOR DESCENDING CORONARY ARTERY: Good caliber vessel extends along the anterior wall, has about a 35% mid lesion, tortuous vessel. Mild calcification. Gives off several branches, has no significant disease. LEFT POSTERIOR CIRCUMFLEX CORONARY ARTERY: Technically a nondominant or codominant vessel, gives off a large obtuse marginal after which there was a 90 degree tortuosity and then it gives off another obtuse marginal and then continues distally. At the second obtuse marginal and the continuation of circumflex, both have 85% lesion and this is a bifurcation lesion that involves both the branches as well as the circumflex proximal to the bifurcation. This is a significant lesion and this is probably the culprit vessel seen on a positive stress test. Left ventriculogram was not performed. FINAL IMPRESSION: This patient has probably a technically a right dominant system with a large circumflex. The right has moderate 40% mid lesion. LAD has mid 35% lesion. No gradient across aortic valve. The circumflex has 85% mid lesion and that involves the bifurcation of the obtuse marginal and continuation of circumflex. RECOMMENDATIONS: I recommended PCI of circumflex and perform this in the same setting. PCI PROCEDURE DETAILS: The patient was administered heparin as per protocol. ACT was about 250. I gave 600 mg of Plavix. I used a JL 3.5 guide catheter and a 014 run-through wire, I crossed the wire lesion and kept the wire distally. Another wire was advanced and positioned this was also a run-through wire in the obtuse marginal branch. Both vessels were independently dilated with a 2.5 caliber NC Trek balloon at 12 atmospheres. I then deployed a 15 mm long 2.5 caliber Xience stent in the main circumflex jailing the wire that was in the obtuse marginal. I then performed a proximal vessel optimization with a 3.0 caliber NC Trek balloon just before the bifurcation. I noted that there was another area of disease just after the large obtuse marginal and I addressed this with another 12 mm Xience stent of 2.75 caliber. Excellent result was achieved. I then took the wire out of the obtuse marginal and rewired it. I was able to rewire it. I then tried to advance a balloon. None of the balloons were able to go through at 90 degree bend after the first obtuse marginal. However, with a 1.0 Sapphire balloon I gave 1 inflation. I then gave another inflation with a 1.5 mini Trek balloon. I could not advance a 2.0 balloon. Finally, the distal half of the 2.0 balloon was in the area and with this was also opened up, the vessel opened up and there was a decent flow. However, there was still a lesion that persisted. I tried 2.25 caliber balloon, but I could not advance it. After multiple attempts, I decided to leave the BRITTA 2 flow in the obtuse marginal and patient was asymptomatic, had no chest discomfort and the main circumflex had an excellent result. After some deliberation and attempts, I decided not to pursue any other dilatation and we will pursue medical therapy. Patient therefore in the obtuse marginal has a BRITTA 2 flow and in the main circumflex has an excellent BRITTA-3 flow. She is asymptomatic, hemodynamically stable. Excellent result was achieved of the main circumflex. Suboptimal result was achieved of the second obtuse marginal branch. This was discussed with the patient as well as her . I expect she will be discharged tomorrow if she remains stable. MMARTEMIO / JERMAINE: [id number] /
[2021-10-19] MEDS: SODIUM CHLORIDE 0.9% 1,000 ML in EMPTY BAG 1 BAG IV SCH ×3 (20:11→20:33)
[2021-10-19] MEDS: GABAPENTIN 300 MG CAP PO SCH (20:30)
[2021-10-19] MEDS: PILOCARPINE 5 MG TAB PO SCH (20:50)
[2021-10-19] MEDS ORDERED: ASPIRIN 81 MG PO SCH (21:00)
[2021-10-19] MEDS ORDERED: amLODIPine 5 MG TAB PO SCH (21:00)
[2021-10-20] MEDS: SODIUM CHLORIDE 0.9% 1,000 ML in EMPTY BAG 1 BAG IV SCH ×2 (03:37→03:38)
[2021-10-20 08:29] LABS: Basophils # (A) 0.1 k/uL (0-0.2); Basophils % (A) 0 %; Eosinophils # (A) 0.1 k/uL (0-0.7); Eosinophils % (A) 1 %; HCT 39.4 % (34.0-46.0); Lymphocytes # (A) 3.4 k/uL (1.0-4.8); Lymphocytes % (A) 25 %; MCH 31.7 pg (25.0-35.0); MCV 96.3 fL (80.0-100.0); Mean Platelet Volume 8.5; Monocytes # (A) 0.7 k/uL (0-1.0); Monocytes % (A) 5 %; Neutrophils # (A) 9.4 k/uL (1.3-7.7); Neutrophils % (A) 68 %; Platelet Count 226 k/uL (150-450); RBC 4.09 m/uL (3.80-5.40); RDW 13.7 % (11.5-15.5); WBC 13.8 k/uL (3.8-10.6)
[2021-10-20 08:46] VITALS: BP 177/77; PULSE 77; RESP 17; TEMP 96.3
[2021-10-20 08:47] LABS: African American GFR (CKD) >90 (>60 ml/min/1.73 sqM); Anion Gap 5 mmol/L; Blood Urea Nitrogen 19 mg/dL (7-17); Calcium 8.9 mg/dL (8.4-10.2); Carbon Dioxide 25 mmol/L (22-30); Chloride 108 mmol/L (98-107); Glucose 99 mg/dL (74-99); Non-African American GFR(CKD) 81 (>60 ml/min/1.73 sqM); Potassium 3.5 mmol/L (3.5-5.1); Sodium 138 mmol/L (137-145)
[2021-10-20] MEDS: GABAPENTIN 300 MG CAP PO SCH (08:47)
[2021-10-20] MEDS: PILOCARPINE 5 MG TAB PO SCH (08:50)
[2021-10-20] MEDS ORDERED: CLOPIDOGREL 75 MG TAB PO SCH (09:00)
[2021-10-20] MEDS ORDERED: LEVOTHYROXINE 75 MCG TAB PO SCH (09:00)
[2021-10-20] MEDS ORDERED: MELOXICAM 7.5 MG TAB PO SCH (09:00)
[2021-10-20] MEDS ORDERED: LOSARTAN 25 MG TAB PO SCH (09:00)
[2021-10-20] MEDS ORDERED: ATORVASTATIN 80 MG TAB PO SCH (09:00)
[2021-10-20] MEDS ORDERED: PANTOPRAZOLE 40 MG TABLET PO SCH (09:00)
[2021-10-20] MEDS ORDERED: METOPROLOL TARTRATE 25 MG TAB PO SCH (09:00)
[2021-10-20] MEDS ORDERED: OXYBUTYNIN 10 MG TAB.ER.24 PO SCH (09:00)
[2021-10-20] MEDS ORDERED: MULTIVITAMINS, THERA 1 EACH TAB PO SCH (09:00)
[2021-10-20] MEDS ORDERED: LORATADINE 10 MG TAB PO SCH (09:00)
--- NOTE | 2021-10-20 10:35 | DS ---
DISCHARGE SUMMARY DATE OF ADMISSION: 10/19/2021 DATE OF DISCHARGE: 10/20/2021 DIAGNOSIS: 1. Coronary artery disease with abnormal stress test. 2. Hypertension. 3. Hyperlipidemia. Mrs. Elliot Stahl was brought into the hospital for elective cardiac cath which revealed an 80% to 90% stenosis in the mid circumflex and also in the OM branch. She underwent a bifurcation intervention. She had stenting of the main circumflex and also PTCA of her obtuse marginal branch which was jailed with a stent. She had excellent result in the main vessel, modest results of the obtuse marginal branch with evidence of BRITTA 2 flow. She is asymptomatic, resting comfortably. EKG is unremarkable for any acute changes. Vitals are stable. No JVD or carotid bruit. S1-S2 heard normally. Short systolic murmur is noted, unchanged. Lungs are clear. Abdomen is soft, nontender. Lower extremities reveal normal pulses. Right groin is clean and dry with a good pulse. Plan is to discharge her today on dual antiplatelet therapy. Discharge instructions regarding activity, diet and medications were given. I will see her in the office in one week. She did have a jailed obtuse marginal branch with somewhat of a sluggish flow, but no symptoms and hemodynamically stable. Main circumflex results were excellent. This was explained to the patient and her in detail yesterday. She will be discharged today. Discharge instructions regarding activity, diet and medications were given, and I will see her in the office within one week. MMARTEMIO / JERMAINE: [id number] /
[2021-10-20 10:38] VITALS: BMI 27.3
== END 2021-10-20 13:46 | disposition home or self-care (01) ==
LOC: CATHCVL 09:24 → 3SCARD 15:28 → CATHCVL 10-20 13:46
PROVIDERS: ATTEND Internal Medicine Interventional Cardiology
DX: I25.10 Atherosclerotic heart disease of native coronary artery without angina pectoris (principal); I10 Essential (primary) hypertension; E78.5 Hyperlipidemia, unspecified; R55 Syncope and collapse; F17.210 Nicotine dependence, cigarettes, uncomplicated; Z20.822 Contact with and (suspected) exposure to COVID-19; Z90.10 Acquired absence of unspecified breast and nipple; Z79.899 Other long term (current) drug therapy; Z79.82 Long term (current) use of aspirin; Z79.890 Hormone replacement therapy; Z82.49 Family history of ischemic heart disease and other diseases of the circulatory system
CPT/HCPCS: 93458; 80048 ×2; 85025 ×2; 87635; C9600; C1769 ×3; C1760; C1887; C1894 ×2; C1725 ×6; C1874 ×2; J2250; J2001; J1644; J1170; Q9967 ×2

== ENCOUNTER 2022-04-26 17:44 | Emergency (ER) | payer MEDICARE, BC ==
[2022-04-26 18:42] VITALS: TEMP 98.3
[2022-04-26] MEDS ORDERED: TRANEXAMIC ACID 1,000 MG/10 ML VIAL MISCELLANE ONE (19:15)
--- NOTE | 2022-04-26 19:17 | ED ---
General Adult HPI - General Chief complaint: Recheck/Abnormal Lab/Rx Stated complaint: tooth extraction complications Time Seen by Provider: 04/26/22 19:00 Source: patient, RN notes reviewed, old records reviewed Mode of arrival: ambulatory Limitations: no limitations - History of Present Illness Initial comments: This is an 86-year-old female, alert and oriented 4 that presents ambulatory with complaints of right upper dental pain and bleeding after having an extraction and a temporary tooth placed this morning. Patient starts bleeding started around 10:30 and has not been able to stop. She denies any dizziness, chest pain or shortness of breath. No nausea or vomiting. No abdominal pain. No other complaints. -: hour(s) (9) Location: mouth Radiation: non-radiation Severity scale (1-10): 4 Quality: aching Consistency: constant Improves with: none Associated Symptoms: denies other symptoms - Related Data Home Medications Medication Instructions Recorded Confirmed Aspirin 81 mg PO HS 09/08/16 10/19/21 Levothyroxine Sodium [Synthroid] 75 mcg PO DAILY 09/08/16 10/19/21 Multivit-Min/FA/Lycopen/Lutein 1 tab PO DAILY 09/08/16 10/19/21 [Centrum Silver Tablet] Tolterodine Tartrate [Detrol LA] 4 mg PO DAILY 09/08/16 10/19/21 Omeprazole 20 mg PO DAILY 10/05/18 10/19/21 Albuterol Inhaler [Ventolin Hfa 1 - 2 puff INHALATION RT-Q6H PRN 07/24/21 10/17/21 Inhaler] Celecoxib [CeleBREX] 200 mg PO DAILY 07/24/21 10/19/21 Gabapentin [Neurontin] 300 mg PO BID 07/24/21 10/19/21 LORazepam [Ativan] 1 mg PO DAILY PRN 07/24/21 10/19/21 Loratadine [Alavert] 10 mg PO DAILY 07/24/21 10/19/21 Pilocarpine HCl 5 mg PO BID 07/24/21 10/19/21 Metoprolol Tartrate [Lopressor] 25 mg PO DAILY 10/17/21 10/19/21 amLODIPine [Norvasc] 5 mg PO HS 10/17/21 10/19/21 Previous Rx's Medication Instructions Recorded Atorvastatin [Lipitor] 80 mg PO DAILY #90 tab 10/20/21 Clopidogrel [Plavix] 75 mg PO DAILY #90 tab 10/20/21 Losartan [Cozaar] 25 mg PO DAILY #90 tab 10/20/21 Nitroglycerin Sl Tabs [Nitrostat] 0.4 mg SUBLINGUAL Q5M PRN #100 tab 10/20/21 Allergies Allergy/AdvReac Type Severity Reaction Status Date / Time adhesive tape Allergy Severe Rash/Hives Verified 04/26/22 18:42 bee venom protein (honey bee) Allergy Swelling Verified 04/26/22 18:42 povidone-iodine Allergy Rash/Hives Verified 04/26/22 18:42 [From Betadine] Sulfa (Sulfonamide Allergy Rash/Hives Verified 04/26/22 18:42 Antibiotics) Review of Systems ROS Statement: Those systems with pertinent positive or pertinent negative responses have been documented in the HPI. ROS Other: All systems not noted in ROS Statement are negative. 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 wears compression socks. c/o shortness of breath. 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 Past Anesthesia/Blood Transfusion Reactions: Previous Problems w/ Anesthesia Additional Past Anesthesia/Blood Transfusion Reaction / Comment(s): Had mult prob after knee surg 2019. Do not use Rt arm. Past Psychological History: Anxiety Smoking Status: Former smoker Past Alcohol Use History: Occasional Past Drug Use History: None Reported - Past Family History Father Family Medical History: Myocardial Infarction ([place]) Additional Family Medical History / Comment(s): Father of a massive [place] in his late 60s. He was an alcoholic and a smoker. Mother History Unknown: Yes Additional Family Medical History / Comment(s): Mother was healthy and lived to be 94 yrs old. Brother(s) Family Medical History: Cancer Additional Family Medical History / Comment(s): lung cancer Sister(s) Family Medical History: Cancer Additional Family Medical History / Comment(s): breast cancer General Exam Limitations: no limitations General appearance: alert, in no apparent distress Head exam: Present: atraumatic Eye exam: Absent: scleral icterus, conjunctival injection, periorbital swelling, periorbital tenderness ENT exam: Present: mucous membranes moist Expanded Mouth exam: Present: tongue normal, tongue elevation. Absent: drooling, trismus, muffled voice Teeth exam: Present: other (tooth 5, extraction and implant placed) Neck exam: Present: normal inspection, full ROM. Absent: tenderness, meningismus Respiratory exam: Absent: respiratory distress, accessory muscle use Cardiovascular Exam: Present: regular rate GI/Abdominal exam: Present: soft Extremities exam: Present: normal capillary refill Neurological exam: Present: alert, oriented X3, normal gait Psychiatric exam: Present: normal affect, normal mood Skin exam: Present: warm, dry, normal color. Absent: cyanosis, diaphoretic, petechiae, pallor Course Vital Signs 04/26/22 04/26/22 18:39 22:09 Temperature 98.3 F Pulse Rate 78 71 Respiratory 20 18 Rate Blood Pressure 164/89 174/96 O2 Sat by Pulse 99 99 Oximetry Medical Decision Making - Medical Decision Making Patient had a tooth #5 extraction and implant placed this morning. States has had continued bleeding since 10:30. She did call her dentist at 5:30pm who recommended she place a teabag on tooth. Patient continues to have bleeding. She is taking Plavix and aspirin. I did attempt to call the dentist, Dr Keen which was unsuccessful. TXA was applied on gauze dressing for 30 minutes with no relief. Lidocaine with epinephrine 1 mL was injected around tooth. Bleeding is now controlled. She will be discharged to follow up with her dentist this week. Patient and family are agreeable to this plan of care. Case discussed with Dr. Rich. Disposition Clinical Impression: Hemorrhagic complications of dental implant placement Disposition: HOME SELF-CARE Condition: Good Instructions (If sedation given, give patient instructions): Acute Dental Trauma (ED) Additional Instructions: Follow-up with your dentist this week. Return to the emergency room with any new or concerning symptoms. Use ice for pain and swelling which will also help decrease bleeding. Is patient prescribed a controlled substance at d/c from ED?: No Referrals: Jason Killian MD [Primary Care Provider] - 1-2 days Time of Disposition: 21:54
[2022-04-26] MEDS ORDERED: LIDOCAINE 1%-EPI 1:100,000 20 ML VIAL SUBMUCOSAL STA (20:10)
[2022-04-26 22:10] VITALS: BP 174/96; PULSE 71; RESP 18
== END 2022-04-26 22:10 | disposition home or self-care (01) ==
LOC: EC 17:44
DX: M27.61 Osseointegration failure of dental implant (principal); J45.909 Unspecified asthma, uncomplicated; I10 Essential (primary) hypertension; K21.9 Gastro-esophageal reflux disease without esophagitis; E07.9 Disorder of thyroid, unspecified; M19.90 Unspecified osteoarthritis, unspecified site; Z88.2 Allergy status to sulfonamides; Z91.041 Radiographic dye allergy status; Z91.030 Bee allergy status; Z87.891 Personal history of nicotine dependence; Z91.09 Other allergy status, other than to drugs and biological substances; Z79.82 Long term (current) use of aspirin; Z79.890 Hormone replacement therapy; Z79.899 Other long term (current) drug therapy
CPT/HCPCS: 99283

== ENCOUNTER → 2022-05-04 | Outpatient (CLI) | payer MEDICARE, BC ==
--- NOTE | 2022-05-05 08:53 | CT ---
EXAMINATION TYPE: CT chest wo con DATE OF EXAM: 05/04/2022 COMPARISON: None HISTORY: INTERSTITIAL PULMONARY DISEASE CT DLP: 478.8 mGycm. Automated Exposure Control for Dose Reduction was Utilized. TECHNIQUE: CT scan of the thorax is performed without IV contrast. FINDINGS: LUNGS: There is interlobular septal thickening involving the lungs diffusely greater on the right com patible with interstitial chronic lung disease such as pulmonary fibrosis. Mild basilar bronchiectasi s noted. There are scattered areas of subsegmental consolidation most typical of atelectasis.. MEDIASTINUM: Lack of IV contrast is noted to limit evaluation for mediastinal and especially hilar ad enopathy. There are no definitive greater than 1 cm hilar or mediastinal lymph nodes. There is cardio megaly and coronary artery calcification. Small hiatal hernia.. OTHER: Surgical clips in the gallbladder fossa. Hypertrophic and degenerative changes of the spine wi th scoliosis. Indeterminate 1.2 cm left renal lesion by noncontrast technique most likely the basis o f a simple cyst. IMPRESSION: 1. There is rather diffuse interstitial interlobular septal thickening greater on the right compatibl e with chronic interstitial lung disease. Correlate for pulmonary fibrosis. 2. There were calcified nodules measuring less than 5 mm most typical granuloma. Correlate for asbest os exposure. 3. Indeterminant left renal lesion could be correlated with ultrasound.
== END | disposition home or self-care (01) ==
LOC: RADCTMAIN 15:51
PROVIDERS: ATTEND Internal Medicine
DX: J84.9 Interstitial pulmonary disease, unspecified (principal)
CPT/HCPCS: 71250

== ENCOUNTER 2022-07-26 11:10 | Emergency (ER) | payer MEDICARE, BC ==
[2022-07-26 11:33] VITALS: PULSE 77; RESP 20; TEMP 98.1
--- NOTE | 2022-07-26 12:13 | ED ---
Fall HPI - General Chief Complaint: Fall Stated Complaint: fall 2 days ago, face/knee injury Time Seen by Provider: 07/26/22 11:35 Source: patient, RN notes reviewed Mode of arrival: ambulatory - History of Present Illness Initial Comments: This is an 86-year-old female who presents to the emergency department for a fall. This occurred 2 days ago, she was walking out of the bank, when she missed a step and fell into her car. Currently has bruising around the left eye and mild swelling to the left knee. Denies any pain. She does take Plavix and a baby aspirin daily. While she is not in any pain, she is concerned about her knee replacement in the left knee and wants to make sure that it was not damaged. Her family was also worried about the bruising around the left eye. Denies any visual changes associated with this. Denies any loss of consciousness or prolonged downtime. She had no events prior to the fall such as chest pain, shortness of breath, or dizziness. Denies any fevers, chills, sore throat, cough, dyspnea, chest pain, palpitations, abdominal pain, nausea, vomiting, diarrhea, back pain, or headaches. MD Complaint: fall Onset/Timin -: days(s) Fall From: standing Place Fall Occurred: other (Bank) Loss of Consciousness: none Prolonged Down Time?: no Symptoms Prior to Fall: none - Related Data Home Medications Medication Instructions Recorded Confirmed Aspirin 81 mg PO HS 09/08/16 10/19/21 Levothyroxine Sodium [Synthroid] 75 mcg PO DAILY 09/08/16 10/19/21 Multivit-Min/FA/Lycopen/Lutein 1 tab PO DAILY 09/08/16 10/19/21 [Centrum Silver Tablet] Tolterodine Tartrate [Detrol LA] 4 mg PO DAILY 09/08/16 10/19/21 Omeprazole 20 mg PO DAILY 10/05/18 10/19/21 Albuterol Inhaler [Ventolin Hfa 1 - 2 puff INHALATION RT-Q6H PRN 07/24/21 10/17/21 Inhaler] Celecoxib [CeleBREX] 200 mg PO DAILY 07/24/21 10/19/21 Gabapentin [Neurontin] 300 mg PO BID 07/24/21 10/19/21 LORazepam [Ativan] 1 mg PO DAILY PRN 07/24/21 10/19/21 Loratadine [Alavert] 10 mg PO DAILY 07/24/21 10/19/21 Pilocarpine HCl 5 mg PO BID 07/24/21 10/19/21 Metoprolol Tartrate [Lopressor] 25 mg PO DAILY 10/17/21 10/19/21 amLODIPine [Norvasc] 5 mg PO HS 10/17/21 10/19/21 Previous Rx's Medication Instructions Recorded Atorvastatin [Lipitor] 80 mg PO DAILY #90 tab 10/20/21 Clopidogrel [Plavix] 75 mg PO DAILY #90 tab 10/20/21 Losartan [Cozaar] 25 mg PO DAILY #90 tab 10/20/21 Nitroglycerin Sl Tabs [Nitrostat] 0.4 mg SUBLINGUAL Q5M PRN #100 tab 10/20/21 Allergies Allergy/AdvReac Type Severity Reaction Status Date / Time adhesive tape Allergy Severe Rash/Hives Verified 07/26/22 11:33 bee venom protein (honey bee) Allergy Swelling Verified 07/26/22 11:33 povidone-iodine Allergy Rash/Hives Verified 07/26/22 11:33 [From Betadine] Sulfa (Sulfonamide Allergy Rash/Hives Verified 07/26/22 11:33 Antibiotics) Review of Systems ROS Statement: Those systems with pertinent positive or pertinent negative responses have been documented in the HPI. ROS Other: All systems not noted in ROS Statement are negative. 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 wears compression socks. c/o shortness of breath. 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 Past Anesthesia/Blood Transfusion Reactions: Previous Problems w/ Anesthesia Additional Past Anesthesia/Blood Transfusion Reaction / Comment(s): Had mult prob after knee surg 2019. Do not use Rt arm. Past Psychological History: Anxiety Smoking Status: Former smoker Past Alcohol Use History: Occasional Past Drug Use History: None Reported - Past Family History Father Family Medical History: Myocardial Infarction ([place]) Additional Family Medical History / Comment(s): Father of a massive [place] in his late 60s. He was an alcoholic and a smoker. Mother History Unknown: Yes Additional Family Medical History / Comment(s): Mother was healthy and lived to be 94 yrs old. Brother(s) Family Medical History: Cancer Additional Family Medical History / Comment(s): lung cancer Sister(s) Family Medical History: Cancer Additional Family Medical History / Comment(s): breast cancer General Exam Limitations: no limitations General appearance: alert, in no apparent distress Head exam: Present: atraumatic, normocephalic, normal inspection Eye exam: Present: PERRL, EOMI, other (Left periorbital ecchymosis, nontender to palpation) Respiratory exam: Present: normal lung sounds bilaterally. Absent: respiratory distress, wheezes, rales, rhonchi, stridor Cardiovascular Exam: Present: regular rate, normal rhythm, normal heart sounds. Absent: systolic murmur, diastolic murmur, rubs, gallop, clicks Extremities exam: Present: other (There is no bruising over the left patella, however there is tenderness to palpation just inferior to the left patella. Full active and passive range of motion.) Neurological exam: Present: alert, oriented X3, CN II-XII intact Psychiatric exam: Present: normal affect, normal mood Skin exam: Present: warm, dry, intact, normal color. Absent: rash Course Vital Signs 07/26/22 11:30 Temperature 98.1 F Pulse Rate 77 Respiratory 20 Rate O2 Sat by Pulse 97 Oximetry Medical Decision Making - Medical Decision Making This is an 86-year-old female who presents to the emergency department for a fall. X-ray of the left knee obtained, my interpretation of this reveals no acute fractures or disruption of the hardware. Computed tomography scan of the brain and facial bones obtained. My interpretation of the computed tomography scan of the brain reveals no signs of an acute intracranial hemorrhage or skull fracture. My interpretation of the computed tomography scan of the facial bones reveals no evidence of facial fractures. Recommended she alternate with ibuprofen and Tylenol as needed for pain relief. She'll continue using her cane for ambulation. Advised that she be particularly careful, especially as we are getting into the winter months causing ice on the road and side walks. Return precautions reviewed in depth, the patient is instructed to return to the emergency department with any new, worsening, or concerning symptoms. Patient verbalized understanding. This case was discussed in detail with the attending ED physician, Dr. Fletcher. Presentation, findings, and treatment plan discussed in detail as well. - Radiology Data Radiology results: report reviewed, image reviewed Disposition Clinical Impression: Facial contusion, Left knee pain Disposition: HOME SELF-CARE Instructions (If sedation given, give patient instructions): Fall Prevention for Older Adults (ED) Additional Instructions: Return to the emergency department with any new, worsening, or concerning symptoms. Alternate with ibuprofen and Tylenol as needed for pain relief. Follow up with your primary care provider in 1-2 days. Is patient prescribed a controlled substance at d/c from ED?: No Referrals: Jason Killian MD [Primary Care Provider] - 1-2 days
--- NOTE | 2022-07-26 12:15 | CT ---
EXAMINATION TYPE: CT facial bones wo con DATE OF EXAM: 07/26/2022 COMPARISON: None HISTORY: fall, swelling and bruising around left eye CT DLP: combined DLP 720.[address] of the facial bones was performed in the axial and coronal planes. Bone and soft tissu e window settings are submitted. Mild left periorbital soft tissue swelling. I do not see evidence for displaced facial bone fracture or depressed facial bone fracture. The globes are intact. Paranasal sinuses are well-aerated. IMPRESSION: 1. No evidence for depressed or displaced facial bone fracture.
--- NOTE | 2022-07-26 12:16 | CT ---
EXAMINATION TYPE: CT brain wo con DATE OF EXAM: 07/26/2022 COMPARISON: 07/24/21 HISTORY: fall, swelling and bruising around left eye CT DLP: combined DLP 720.[address] of the brain was performed. The ventricles, basal cisterns and sulci overlying the cerebral convexities demonstrate mild enlargem ent. There is no evidence for intracranial hemorrhage or sulcal effacement. There is decreased attenuation about the periventricular white matter and deep white matter of both c erebral hemispheres, compatible with chronic small vessel ischemia. Differential diagnosis does inclu de demyelination. No mass effects are seen.No midline shift. Osseous calvarium is intact. If symptoms persist consider MRI. IMPRESSION: 1. Age related atrophic and chronic small vessel ischemic change without acute intracranial process s een at this time.
--- NOTE | 2022-07-26 12:17 | XR ---
EXAMINATION TYPE: XR knee complete LT DATE OF EXAM: 07/26/2022 CLINICAL HISTORY: pain TECHNIQUE: Three views of the left knee are obtained. COMPARISON: None. FINDINGS: There is no acute fracture/dislocation. Total knee arthroplasty with femoral and tibial co mponents appear well seated. The overlying soft tissue appears unremarkable. IMPRESSION: There is no acute fracture or dislocation ICD 10 NO FRACTURE, INITIAL EVALUATION
== END 2022-07-26 13:01 | disposition home or self-care (01) ==
LOC: EC 11:10
DX: S00.83XA Contusion of other part of head, initial encounter (principal); M25.562 Pain in left knee; F41.9 Anxiety disorder, unspecified; J45.909 Unspecified asthma, uncomplicated; K21.9 Gastro-esophageal reflux disease without esophagitis; I10 Essential (primary) hypertension; M19.90 Unspecified osteoarthritis, unspecified site; E07.9 Disorder of thyroid, unspecified; Z87.891 Personal history of nicotine dependence; Z79.82 Long term (current) use of aspirin; Z79.899 Other long term (current) drug therapy; Z79.83 Long term (current) use of bisphosphonates; Z91.030 Bee allergy status; Z91.041 Radiographic dye allergy status; Z88.2 Allergy status to sulfonamides; W10.9XXA Fall (on) (from) unspecified stairs and steps, initial encounter; Y93.01 Activity, walking, marching and hiking; Y92.510 Bank as the place of occurrence of the external cause
CPT/HCPCS: 70450; 70486; 99284

== ENCOUNTER → 2022-08-30 | Outpatient (CLI) | payer MEDICARE, BC ==
--- NOTE | 2022-08-31 18:15 | MM ---
Reason for Exam: Screening (asymptomatic). Last screening mammogram was performed 12 month(s) ago. Patient History: Menarche at age 14. First Full-Term at age 21. Postmenopausal. Breast cancer, right, age 64. Estrogen, starting at age 57 for 1 year. Progesterone, starting at age 57 for 1 year. Tamoxifen for 13 years from age 64 until age 77. Lumpectomy on the Right side. Excisional Biopsy on the Left side. 01/31/2000, Malignant Excisional Biopsy on the right side. Radiation Therapy, right. Chemotherapy. Sister had breast cancer, age 70. Prior Study Comparison: 08/25/2019 Bilateral Diagnostic Mammogram, [facility]. 08/25/2020 Bilateral Diagnostic Mammogram, [facility]. 08/29/2021 Bilateral Diagnostic Mammogram, [facility]. Tissue Density: The breast tissue is heterogeneously dense. This may lower the sensitivity of mammography. Findings: Analyzed By CAD. Demonstrated postsurgical and posttreatment changes right breast. All the calcifications on both sides. Area of asymmetric density superior left MLO view in the middle depth incompletely disperses on 3-D images. This may represent superimposition shadow but further evaluation is recommended. Otherwise, no significant change. Overall Assessment: Incomplete: need additional imaging evaluation, BI-RAD 0 Management: Special View Mammogram of the left breast. Including spot 3-D MLO and 3-D lateral views. Targeted left breast ultrasound if any persisting abnormality. [facility] will attempt to contact patient to return for supplemental views and ultrasound if indicated. Electronically signed and approved by: Rebecca Del Rosario M.D. Radiologist
== END | disposition home or self-care (01) ==
LOC: RADMAMWWP 12:54
PROVIDERS: ATTEND Internal Medicine Hematology & Oncology
DX: Z12.31 Encounter for screening mammogram for malignant neoplasm of breast (principal); Z78.0 Asymptomatic menopausal state; Z80.3 Family history of malignant neoplasm of breast; Z85.3 Personal history of malignant neoplasm of breast; Z98.890 Other specified postprocedural states
CPT/HCPCS: 77063; 77067

== ENCOUNTER → 2022-09-06 | Outpatient (CLI) | payer MEDICARE, BC ==
--- NOTE | 2022-09-06 14:08 | MM ---
Reason for Exam: Additional evaluation requested from prior study. Last screening mammogram was performed less than 1 month ago. Patient History: Menarche at age 14. First Full-Term at age 21. Postmenopausal. Breast cancer, right, age 64. Estrogen, starting at age 57 for 1 year. Progesterone, starting at age 57 for 1 year. Tamoxifen for 13 years from age 64 until age 77. Lumpectomy on the Right side. Excisional Biopsy on the Left side. 01/31/2000, Malignant Excisional Biopsy on the right side. Radiation Therapy, right. Chemotherapy. Sister had breast cancer, age 70. Prior Study Comparison: 08/25/2020 Bilateral Diagnostic Mammogram, [facility]. 08/29/2021 Bilateral Diagnostic Mammogram, [facility]. 08/30/2022 Bilateral MG 3D screening mammo w/cad, [facility]. Tissue Density: Left: The breast tissue is heterogeneously dense. This may lower the sensitivity of mammography. Findings: Analyzed By CAD. Area of concern in the left breast dissipates on compression imaging. No suspicious masses consultations or distortions. Area of concern in the left breast dissipates on compression imaging. No suspicious masses calcifications or distortions. Overall Assessment: Benign, BI-RAD 2 Management: Screening Mammogram of both breasts in 1 year. A clinical breast exam by your physician is recommended on an annual basis and results should be correlated with mammographic findings. This exam should not preclude additional follow-up of suspicious palpable abnormalities. Results were given to the patient verbally at the time of exam. Electronically signed and approved by: Sabino Heck DO
== END | disposition home or self-care (01) ==
LOC: RADMAMWWP 13:39
PROVIDERS: ATTEND Internal Medicine Hematology & Oncology
DX: C50.911 Malignant neoplasm of unspecified site of right female breast (principal); R92.8 Other abnormal and inconclusive findings on diagnostic imaging of breast; Z78.0 Asymptomatic menopausal state; Z80.3 Family history of malignant neoplasm of breast
CPT/HCPCS: 77065; G0279; 77061

== ENCOUNTER → 2023-01-11 | Outpatient (CLI) | payer MEDICARE, BC ==
[2023-01-11 22:24] LABS: T4, Free (Free Thyroxine) 1.49 ng/dL (0.800-1.800)
== END | disposition home or self-care (01) ==
LOC: LABWHC1 13:22
PROVIDERS: ATTEND Internal Medicine Interventional Cardiology
DX: E03.9 Hypothyroidism, unspecified (principal)
CPT/HCPCS: 36415; 84439; 84443

== ENCOUNTER → 2023-03-27 | Outpatient (CLI) | payer MEDICARE, BC ==
--- NOTE | 2023-03-27 16:23 | US ---
EXAMINATION TYPE: US venous doppler duplex LE LT DATE OF EXAM: 03/27/2023 4:09 PM COMPARISON: NONE CLINICAL INDICATION: Female, 87 years old with history of M79.662 PAIN IN LEFT LOWER LEG; Left knee r eplacement 03/12/23, pain and edema left leg SIDE PERFORMED: left TECHNIQUE: The lower extremity deep venous system is examined utilizing real time linear array sonog kaleb with graded compression, doppler sonography and color-flow sonography. VESSELS IMAGED: Common Femoral Vein Deep Femoral Vein Greater Saphenous Vein * Femoral Vein Popliteal Vein Small Saphenous Vein * Proximal Calf Veins (* superficial vessels) Grayscale, color doppler, spectral doppler imaging performed of the deep veins of the left lower extr emity. There is normal flow, compressibility, vascular waveforms. Left Leg: No evidence of DVT as visualized IMPRESSION: No ultrasound evidence for deep venous thrombosis of the left lower extremity.
== END | disposition home or self-care (01) ==
LOC: RADUSWWP 15:43
PROVIDERS: ATTEND Orthopaedic Surgery Adult Reconstructive Orthopaedic Surgery
DX: M79.662 Pain in left lower leg (principal)

== ENCOUNTER 2023-04-10 15:43 | Emergency (ER) | payer MEDICARE, BC ==
--- NOTE | 2023-04-10 16:16 | ED ---
General Adult HPI - General Source: RN notes reviewed <Delaney Jacobo - Last Filed: 04/10/23 16:17> <Juan Jose Fletcher - Last Filed: 04/10/23 22:35> - General Stated complaint: Black Stool Time Seen by Provider: 04/10/23 16:14 - History of Present Illness Initial comments: 87-year-old female presents to the emergency department with a chief complaint of diarrhea and black stools. Patient reports that she takes Plavix and baby aspirin daily. Patient reports that she was sent by her PCP. Denies shortness of breath, lightheadedness, shortness of breath. I performed the quick note portion of this exam. Verbally signed Delaney Jacobo PA-C (Delaney Jacobo) - Related Data Home Medications Medication Instructions Recorded Confirmed Aspirin 81 mg PO HS 09/08/16 10/19/21 Levothyroxine Sodium [Synthroid] 75 mcg PO DAILY 09/08/16 10/19/21 Multivit-Min/FA/Lycopen/Lutein 1 tab PO DAILY 09/08/16 10/19/21 [Centrum Silver Tablet] Tolterodine Tartrate [Detrol LA] 4 mg PO DAILY 09/08/16 10/19/21 Omeprazole 20 mg PO DAILY 10/05/18 10/19/21 Albuterol Inhaler [Ventolin Hfa 1 - 2 puff INHALATION RT-Q6H PRN 07/24/21 10/17/21 Inhaler] Celecoxib [CeleBREX] 200 mg PO DAILY 07/24/21 10/19/21 Gabapentin [Neurontin] 300 mg PO BID 07/24/21 10/19/21 LORazepam [Ativan] 1 mg PO DAILY PRN 07/24/21 10/19/21 Loratadine [Alavert] 10 mg PO DAILY 07/24/21 10/19/21 Pilocarpine HCl 5 mg PO BID 07/24/21 10/19/21 Metoprolol Tartrate [Lopressor] 25 mg PO DAILY 10/17/21 10/19/21 amLODIPine [Norvasc] 5 mg PO HS 10/17/21 10/19/21 Previous Rx's Medication Instructions Recorded Atorvastatin [Lipitor] 80 mg PO DAILY #90 tab 10/20/21 Clopidogrel [Plavix] 75 mg PO DAILY #90 tab 10/20/21 Losartan [Cozaar] 25 mg PO DAILY #90 tab 10/20/21 Nitroglycerin Sl Tabs [Nitrostat] 0.4 mg SUBLINGUAL Q5M PRN #100 tab 10/20/21 Famotidine [Pepcid] 20 mg PO BID #14 tablet 04/10/23 Allergies Allergy/AdvReac Type Severity Reaction Status Date / Time adhesive tape Allergy Severe Rash/Hives Verified 07/26/22 11:33 bee venom protein (honey bee) Allergy Swelling Verified 07/26/22 11:33 povidone-iodine Allergy Rash/Hives Verified 07/26/22 11:33 [From Betadine] Sulfa (Sulfonamide Allergy Rash/Hives Verified 07/26/22 11:33 Antibiotics) Review of Systems ROS Other: All systems not noted in ROS Statement are negative. <Delaney Jacobo - Last Filed: 04/10/23 16:17> ROS Other: All systems not noted in ROS Statement are negative. <Juan Jose Fletcher - Last Filed: 04/10/23 22:35> ROS Statement: Those systems with pertinent positive or pertinent negative responses have been documented in the HPI. 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 wears compression socks. c/o shortness of breath. 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 Past Anesthesia/Blood Transfusion Reactions: Previous Problems w/ Anesthesia Additional Past Anesthesia/Blood Transfusion Reaction / Comment(s): Had mult prob after knee surg 2019. Do not use Rt arm. Past Psychological History: Anxiety Smoking Status: Former smoker Past Alcohol Use History: Occasional Past Drug Use History: None Reported - Past Family History Father Family Medical History: Myocardial Infarction ([place]) Additional Family Medical History / Comment(s): Father of a massive [place] in his late 60s. He was an alcoholic and a smoker. Mother History Unknown: Yes Additional Family Medical History / Comment(s): Mother was healthy and lived to be 94 yrs old. Brother(s) Family Medical History: Cancer Additional Family Medical History / Comment(s): lung cancer Sister(s) Family Medical History: Cancer Additional Family Medical History / Comment(s): breast cancer <Delaney Jacobo - Last Filed: 04/10/23 16:17> General Exam <Delaney Jacobo - Last Filed: 04/10/23 16:17> - General Exam Comments Initial Comments: Visual Physical Exam Vital signs reviewed General: Well-appearing, nontoxic, no acute distress. Head: Normocephalic, atraumatic Eyes: PERRLA, EOMI ENT: Airway patent Chest: Nonlabored breathing Skin: No visual rash, normal skin tone Neuro: Alert and oriented 3 Musculoskeletal: No gross abnormalities (Delaney Jacobo) Course Vital Signs 04/10/23 04/10/23 16:12 20:57 Temperature 97.4 F L 98 F Pulse Rate 86 90 Respiratory 12 20 Rate Blood Pressure 170/92 160/87 O2 Sat by Pulse 92 L 100 Oximetry Medical Decision Making - Lab Data Result diagrams: 04/10/23 16:25 04/10/23 16:25 <Juan Jose Fletcher - Last Filed: 04/10/23 22:35> - Lab Data Lab Results 04/10/23 04/10/23 04/10/23 Range/Units 16:20 16:25 16:25 WBC 8.8 (3.8-10.6) k/uL RBC 3.91 (3.80-5.40) m/uL Hgb 12.4 (11.4-16.0) gm/dL Hct 36.4 (34.0-46.0) % MCV 93.2 (80.0-100.0) fL MCH 31.7 (25.0-35.0) pg MCHC 34.0 (31.0-37.0) g/dL RDW 13.5 (11.5-15.5) % Plt Count 226 (150-450) k/uL MPV 7.9 Neutrophils % 65 % Lymphocytes % 18 % Monocytes % 7 % Eosinophils % 7 % Basophils % 0 % Neutrophils # 5.8 (1.3-7.7) k/uL Lymphocytes # 1.6 (1.0-4.8) k/uL Monocytes # 0.6 (0-1.0) k/uL Eosinophils # 0.6 (0-0.7) k/uL Basophils # 0.0 (0-0.2) k/uL PT (9.0-12.0) sec INR (<1.2) APTT (22.0-30.0) sec Sodium 134 L (137-145) mmol/L Potassium 4.0 (3.5-5.1) mmol/L Chloride 96 L (98-107) mmol/L Carbon Dioxide 28 (22-30) mmol/L Anion Gap 10 mmol/L BUN 11 (7-17) mg/dL Creatinine 0.59 (0.52-1.04) mg/dL Est GFR (CKD-EPI)AfAm >90 (>60 ml/min/1.73 sqM) Est GFR (CKD-EPI)NonAf 83 (>60 ml/min/1.73 sqM) Glucose 112 H (74-99) mg/dL Calcium 9.7 (8.4-10.2) mg/dL Total Bilirubin 1.0 (0.2-1.3) mg/dL AST 36 (14-36) U/L ALT 29 (4-34) U/L Alkaline Phosphatase 142 H (38-126) U/L Total Protein 7.2 (6.3-8.2) g/dL Albumin 4.3 (3.5-5.0) g/dL Stool Occult Blood (Negative) Blood Type A Positive Blood Type Recheck A Pos Bld Type Recheck Status No Antibody Screen NEGATIVE Spec Expiration Date 04/13/2023 - 231904/10/23 04/10/23 Range/Units 16:25 21:56 WBC (3.8-10.6) k/uL RBC (3.80-5.40) m/uL Hgb (11.4-16.0) gm/dL Hct (34.0-46.0) % MCV (80.0-100.0) fL MCH (25.0-35.0) pg MCHC (31.0-37.0) g/dL RDW (11.5-15.5) % Plt Count (150-450) k/uL MPV Neutrophils % % Lymphocytes % % Monocytes % % Eosinophils % % Basophils % % Neutrophils # (1.3-7.7) k/uL Lymphocytes # (1.0-4.8) k/uL Monocytes # (0-1.0) k/uL Eosinophils # (0-0.7) k/uL Basophils # (0-0.2) k/uL PT 10.6 (9.0-12.0) sec INR 1.0 (<1.2) APTT 25.5 (22.0-30.0) sec Sodium (137-145) mmol/L Potassium (3.5-5.1) mmol/L Chloride (98-107) mmol/L Carbon Dioxide (22-30) mmol/L Anion Gap mmol/L BUN (7-17) mg/dL Creatinine (0.52-1.04) mg/dL Est GFR (CKD-EPI)AfAm (>60 ml/min/1.73 sqM) Est GFR (CKD-EPI)NonAf (>60 ml/min/1.73 sqM) Glucose (74-99) mg/dL Calcium (8.4-10.2) mg/dL Total Bilirubin (0.2-1.3) mg/dL AST (14-36) U/L ALT (4-34) U/L Alkaline Phosphatase (38-126) U/L Total Protein (6.3-8.2) g/dL Albumin (3.5-5.0) g/dL Stool Occult Blood Positive H (Negative) Blood Type Blood Type Recheck Bld Type Recheck Status Antibody Screen Spec Expiration Date Disposition <Delaney Jacobo - Last Filed: 04/10/23 16:17> Is patient prescribed a controlled substance at d/c from ED?: No <Juan Jose Fletcher - Last Filed: 04/10/23 22:35> Clinical Impression: GI bleeding Disposition: HOME SELF-CARE Condition: Good Instructions (If sedation given, give patient instructions): Gastrointestinal Bleeding (ED) Prescriptions: Famotidine [Pepcid] 20 mg PO BID #14 tablet Referrals: Jason Killian MD [Primary Care Provider] - 1-2 days
[2023-04-10 16:42] LABS: Basophils % (A) 0 %; Eosinophils # (A) 0.6 k/uL (0-0.7); Eosinophils % (A) 7 %; HCT 36.4 % (34.0-46.0); HGB 12.4 gm/dL (11.4-16.0); Lymphocytes # (A) 1.6 k/uL (1.0-4.8); Lymphocytes % (A) 18 %; MCH 31.7 pg (25.0-35.0); MCV 93.2 fL (80.0-100.0); Mean Platelet Volume 7.9; Monocytes # (A) 0.6 k/uL (0-1.0); Monocytes % (A) 7 %; Neutrophils # (A) 5.8 k/uL (1.3-7.7); Neutrophils % (A) 65 %; Platelet Count 226 k/uL (150-450); RBC 3.91 m/uL (3.80-5.40); RDW 13.5 % (11.5-15.5); WBC 8.8 k/uL (3.8-10.6)
[2023-04-10 16:50] LABS: ALT 29 U/L (4-34); AST 36 U/L (14-36); African American GFR (CKD) >90 (>60 ml/min/1.73 sqM); Albumin 4.3 g/dL (3.5-5.0); Alkaline Phosphatase 142 U/L (38-126); Anion Gap 10 mmol/L; Blood Urea Nitrogen 11 mg/dL (7-17); Calcium 9.7 mg/dL (8.4-10.2); Carbon Dioxide 28 mmol/L (22-30); Chloride 96 mmol/L (98-107); Glucose 112 mg/dL (74-99); Non-African American GFR(CKD) 83 (>60 ml/min/1.73 sqM); Partial Thromboplastin Time 25.5 sec (22.0-30.0); Prothrombin Time 10.6 sec (9.0-12.0); Sodium 134 mmol/L (137-145); Total Protein 7.2 g/dL (6.3-8.2)
[2023-04-10 21:01] VITALS: TEMP 98
[2023-04-10] MEDS ORDERED: PANTOPRAZOLE 40 MG/10 ML VIAL IVP STA (22:14)
[2023-04-10] MEDS ORDERED: PANTOPRAZOLE 40 MG TABLET PO STA (22:24)
[2023-04-10 22:36] VITALS: BP 144/97; PULSE 94; RESP 19
== END 2023-04-10 22:37 | disposition home or self-care (01) ==
LOC: EC 15:43
DX: K92.2 Gastrointestinal hemorrhage, unspecified (principal); I10 Essential (primary) hypertension; J45.909 Unspecified asthma, uncomplicated; K21.9 Gastro-esophageal reflux disease without esophagitis; M19.90 Unspecified osteoarthritis, unspecified site; E07.9 Disorder of thyroid, unspecified; F41.9 Anxiety disorder, unspecified; Z79.899 Other long term (current) drug therapy; Z79.890 Hormone replacement therapy; Z87.891 Personal history of nicotine dependence; Z91.030 Bee allergy status; Z88.2 Allergy status to sulfonamides; Z88.8 Allergy status to other drugs, medicaments and biological substances
CPT/HCPCS: 36415; 80053; 82272; 85025; 85610; 85730; 86850; 86900; 86901; 93005; 99283

== ENCOUNTER 2023-04-16 06:06 | Emergency (ER) | payer MEDICARE, BC ==
[2023-04-16] MEDS ORDERED: SODIUM CHLORIDE 0.9% 1,000 ML IV STA (06:22)
[2023-04-16] MEDS ORDERED: MORPHINE SULFATE 2 MG/ML SYRINGE IVP STA (06:23)
[2023-04-16 06:33] LABS: Basophils % (A) 0 %; Eosinophils # (A) 0.5 k/uL (0-0.7); Eosinophils % (A) 4 %; HCT 35.4 % (34.0-46.0); HGB 11.9 gm/dL (11.4-16.0); Lymphocytes % (A) 17 %; MCH 31.6 pg (25.0-35.0); MCHC 33.6 g/dL (31.0-37.0); MCV 93.9 fL (80.0-100.0); Mean Platelet Volume 7.8; Monocytes # (A) 0.6 k/uL (0-1.0); Monocytes % (A) 5 %; Neutrophils # (A) 8.3 k/uL (1.3-7.7); Neutrophils % (A) 72 %; Platelet Count 222 k/uL (150-450); RBC 3.77 m/uL (3.80-5.40); RDW 13.5 % (11.5-15.5); WBC 11.5 k/uL (3.8-10.6)
[2023-04-16] MEDS ORDERED: PANTOPRAZOLE 40 MG/10 ML VIAL IVP STA (06:40)
--- NOTE | 2023-04-16 06:42 | ED ---
Nausea/Vomiting/Diarrhea HPI - General Chief complaint: Nausea/Vomiting/Diarrhea Stated complaint: Diarrhea Time Seen by Provider: 04/16/23 06:14 Source: patient, RN notes reviewed Mode of arrival: wheelchair Limitations: no limitations - History of Present Illness Initial comments: This is an 87-year-old female who presents to the emergency department for diarrhea. Patient was evaluated here 6 days ago for the same complaint. States that since then the symptoms have continued to worsen. Describes the diarrhea as essentially being constant. States that it looks like coffee grounds. She is on Plavix. When she was evaluated here 6 days ago, she was instructed to hold the Plavix for 2 days, which she did, but has subsequently restarted it. Denies any nausea, vomiting, or abdominal pain. She was started on famotidine on discharge 6 days ago as well, she's been taking this as prescribed, but again has not had any improvement in symptoms. Denies any history of C. diff infection. Denies any recent antibiotic use. Denies any fevers, chills, sore throat, cough, dyspnea, chest pain, palpitations, abdominal pain, nausea, vomiting, back pain, or headaches. MD complaint: diarrhea - Related Data Home Medications Medication Instructions Recorded Confirmed Aspirin 81 mg PO HS 09/08/16 10/19/21 Levothyroxine Sodium [Synthroid] 75 mcg PO DAILY 09/08/16 10/19/21 Multivit-Min/FA/Lycopen/Lutein 1 tab PO DAILY 09/08/16 10/19/21 [Centrum Silver Tablet] Tolterodine Tartrate [Detrol LA] 4 mg PO DAILY 09/08/16 10/19/21 Omeprazole 20 mg PO DAILY 10/05/18 10/19/21 Albuterol Inhaler [Ventolin Hfa 1 - 2 puff INHALATION RT-Q6H PRN 07/24/21 10/17/21 Inhaler] Celecoxib [CeleBREX] 200 mg PO DAILY 07/24/21 10/19/21 Gabapentin [Neurontin] 300 mg PO BID 07/24/21 10/19/21 LORazepam [Ativan] 1 mg PO DAILY PRN 07/24/21 10/19/21 Loratadine [Alavert] 10 mg PO DAILY 07/24/21 10/19/21 Pilocarpine HCl 5 mg PO BID 07/24/21 10/19/21 Metoprolol Tartrate [Lopressor] 25 mg PO DAILY 10/17/21 10/19/21 amLODIPine [Norvasc] 5 mg PO HS 10/17/21 10/19/21 Previous Rx's Medication Instructions Recorded Atorvastatin [Lipitor] 80 mg PO DAILY #90 tab 10/20/21 Clopidogrel [Plavix] 75 mg PO DAILY #90 tab 10/20/21 Losartan [Cozaar] 25 mg PO DAILY #90 tab 10/20/21 Nitroglycerin Sl Tabs [Nitrostat] 0.4 mg SUBLINGUAL Q5M PRN #100 tab 10/20/21 Famotidine [Pepcid] 20 mg PO BID #14 tablet 04/10/23 Loperamide [Imodium] 2 mg PO DIRECTED PRN #30 capsule 04/16/23 Allergies Allergy/AdvReac Type Severity Reaction Status Date / Time adhesive tape Allergy Severe Rash/Hives Verified 07/26/22 11:33 bee venom protein (honey bee) Allergy Swelling Verified 07/26/22 11:33 povidone-iodine Allergy Rash/Hives Verified 07/26/22 11:33 [From Betadine] Sulfa (Sulfonamide Allergy Rash/Hives Verified 07/26/22 11:33 Antibiotics) Review of Systems ROS Statement: Those systems with pertinent positive or pertinent negative responses have been documented in the HPI. ROS Other: All systems not noted in ROS Statement are negative. 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 wears compression socks. c/o shortness of breath. 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 Past Anesthesia/Blood Transfusion Reactions: Previous Problems w/ Anesthesia Additional Past Anesthesia/Blood Transfusion Reaction / Comment(s): Had mult prob after knee surg 2019. Do not use Rt arm. Past Psychological History: Anxiety Smoking Status: Former smoker Past Alcohol Use History: Occasional Past Drug Use History: None Reported - Past Family History Father Family Medical History: Myocardial Infarction ([place]) Additional Family Medical History / Comment(s): Father of a massive [place] in his late 60s. He was an alcoholic and a smoker. Mother History Unknown: Yes Additional Family Medical History / Comment(s): Mother was healthy and lived to be 94 yrs old. Brother(s) Family Medical History: Cancer Additional Family Medical History / Comment(s): lung cancer Sister(s) Family Medical History: Cancer Additional Family Medical History / Comment(s): breast cancer General Exam Limitations: no limitations General appearance: alert, in no apparent distress Head exam: Present: atraumatic, normocephalic, normal inspection Respiratory exam: Present: normal lung sounds bilaterally. Absent: respiratory distress, wheezes, rales, rhonchi, stridor Cardiovascular Exam: Present: regular rate, normal rhythm, normal heart sounds. Absent: systolic murmur, diastolic murmur, rubs, gallop, clicks GI/Abdominal exam: Present: soft, normal bowel sounds. Absent: distended, tenderness, guarding, rebound, rigid Neurological exam: Present: alert, oriented X3, CN II-XII intact Psychiatric exam: Present: normal affect, normal mood Skin exam: Present: warm, dry, intact, normal color. Absent: rash Course Vital Signs 04/16/23 04/16/23 06:10 07:30 Temperature 97.8 F Pulse Rate 69 84 Respiratory 16 16 Rate Blood Pressure 174/79 142/74 O2 Sat by Pulse 98 98 Oximetry Medical Decision Making - Medical Decision Making This is an 87-year-old female who presents to the emergency department for diarrhea. Was pt. sent in by a medical professional or institution? @ -No Did you speak to anyone other than the patient for history? @ -No Did you review nursing and triage notes? @ -Yes, and I agree, it is accurate with regards to the patient's symptoms. Were old charts reviewed? @ -No Differential Diagnosis? @ -Differential Diarrhea/Vomiting: Gastroenteritis, COVID, myocardial infarction, UTI, parasitic infection, food poisoning, IBS, crohn's disease, ulcerative colitis, C. diff, lactose intolerance, acute intraabdominal process, medications. This is not meant to be an all-inclusive list. EKG interpreted by me (3pts min.)? @ -EKG interpreted by me demonstrating the following: Sinus rhythm. Ventric ular rate 80 beats per minute, QRS duration 94 ms, QTC 404 ms. X-rays interpreted by me (1pt min.)? @ -Not obtained CT interpreted by me (1pt min.)? @ -Computed tomography scan of the abdomen and pelvis obtained. My interpr etation identifies bowel wall thickening around the colon. U/S interpreted by me (1pt. min.)? @ -Not obtained What testing was considered but not performed? (CT, X-rays, U/S, labs)? Why? @ -None What meds were considered but not given? Why? @ -None Did you discuss the management of the patient with other professionals? @ -No Did you reconcile home meds? @ -No Was smoking cessation discussed for >3mins.? @ -No Was critical care preformed (if so, how long)? @ -No Were there social determinants of health that impacted care today? How? (Homelessness, low income, unemployed, alcoholism, drug addiction, transportat ion, low edu. Level, literacy, decrease access to med. care, care home, rehab)? @ -No Was there de-escalation of care discussed even if they declined? (Discuss DNR or withdrawal of care, Hospice)? @ -No What co-morbidities impacted this encounter? (DM, HTN, Smoking, COPD, CAD, Cancer, CVA, Hep., AIDS, mental health diagnosis, sleep apnea, morbid obesity)? @ -CAD - on thinners, GERD, HTN Was patient admitted / discharged? @ -Discharged. Lab work obtained revealing mild leukocytosis and hyponatremia. Lab work was otherwise nonactionable. Urinalysis negative for signs of infection. Covid, influenza, and RSV testing were negative. She was given a liter bolus of IV fluids. Computed tomography scan of the abdomen and pelvis was obtained revealing liquid stool throughout the colon with mild wall thickening suggestive of mild nonspecific colitis. There were other incidental findings, including interstitial and ground glass changes in the lungs, a patulous and fluid-filled lower esophagus, and a prominent endometrial stripe. Advised the patient that these findings can be followed up on an outpatient basis with her primary care provider. We did attempt to obtain a stool sample from the patient to test for C. diff, however she was unable to provide a stool sample prior to discharge. Stool occult obtained 6 days ago was positive. Given the description of her symptoms, it is suspected that this would be positive again, and it was not repeated. Patient was given the option of waiting in the emergency department to see if she could provide a stool sample, or giving her an order and a stool collection kit to bring this to the lab on her own time. Patient requested to bring a stool sample into the lab a a later time as opposed to waiting in the emergency department. Prescription for Imodium provided with dosing instructions reviewed. She is also advised to remain well-hydrated. She does also have a follow-up scheduled with her PCP in 2 days. Undiagnosed new problem with uncertain prognosis? @ -None Drug Therapy requiring intensive monitoring for toxicity (Heparin, Nitro, Insulin, Cardizem)? @ -None Were any procedures done? @ -None Diagnosis/symptom? @ -Melena, diarrhea, colitis Acute, or Chronic, or Acute on Chronic? @ -Acute Uncomplicated (without systemic symptoms) or Complicated (systemic symptoms)? @ -Uncomplicated Side effects of treatment? @ -None Exacerbation, Progression, or Severe Exacerbation] @ -Not applicable Poses a threat to life or bodily function? @ -No Return precautions reviewed in depth, the patient is instructed to return to the emergency department with any new, worsening, or concerning symptoms. Patient verbalized understanding. This case was discussed in detail with the attending ED physician, Dr. Rich. Presentation, findings, and treatment plan discussed in detail as well. - Lab Data Result diagrams: 04/16/23 06:27 04/16/23 06:27 Lab Results 04/16/23 04/16/23 04/16/23 Range/Units 06:27 06:27 06:27 WBC 11.5 H (3.8-10.6) k/uL RBC 3.77 L (3.80-5.40) m/uL Hgb 11.9 (11.4-16.0) gm/dL Hct 35.4 (34.0-46.0) % MCV 93.9 (80.0-100.0) fL MCH 31.6 (25.0-35.0) pg MCHC 33.6 (31.0-37.0) g/dL RDW 13.5 (11.5-15.5) % Plt Count 222 (150-450) k/uL MPV 7.8 Neutrophils % 72 % Lymphocytes % 17 % Monocytes % 5 % Eosinophils % 4 % Basophils % 0 % Neutrophils # 8.3 H (1.3-7.7) k/uL Lymphocytes # 2.0 (1.0-4.8) k/uL Monocytes # 0.6 (0-1.0) k/uL Eosinophils # 0.5 (0-0.7) k/uL Basophils # 0.0 (0-0.2) k/uL PT 10.1 (9.0-12.0) sec INR 0.9 (<1.2) APTT 24.6 (22.0-30.0) sec Sodium 127 L (137-145) mmol/L Potassium 4.0 (3.5-5.1) mmol/L Chloride 95 L (98-107) mmol/L Carbon Dioxide 25 (22-30) mmol/L Anion Gap 7 mmol/L BUN 13 (7-17) mg/dL Creatinine 0.61 (0.52-1.04) mg/dL Est GFR (CKD-EPI)AfAm >90 (>60 ml/min/1.73 sqM) Est GFR (CKD-EPI)NonAf 82 (>60 ml/min/1.73 sqM) Glucose 103 H (74-99) mg/dL Plasma Lactic Acid Sp (0.7-2.0) mmol/L Calcium 9.1 (8.4-10.2) mg/dL Total Bilirubin 0.7 (0.2-1.3) mg/dL AST 37 H (14-36) U/L ALT 25 (4-34) U/L Alkaline Phosphatase 120 (38-126) U/L Troponin I (0.000-0.034) ng/mL Total Protein 6.8 (6.3-8.2) g/dL Albumin 4.0 (3.5-5.0) g/dL Urine Color Urine Appearance (Clear) Urine pH (5.0-8.0) Ur Specific [place] (1.001-1.035) Urine Protein (Negative) Urine Glucose (UA) (Negative) Urine Ketones (Negative) Urine Blood (Negative) Urine Nitrite (Negative) Urine Bilirubin (Negative) Urine Urobilinogen (<2.0) mg/dL Ur Leukocyte Esterase (Negative) Influenza Type A (PCR) (Not Detectd) Influenza Type B (PCR) (Not Detectd) RSV (PCR) (Not Detectd) SARS-CoV-2 (PCR) (Not Detectd) 04/16/23 04/16/23 04/16/23 Range/Units 06:27 06:27 06:53 WBC (3.8-10.6) k/uL RBC (3.80-5.40) m/uL Hgb (11.4-16.0) gm/dL Hct (34.0-46.0) % MCV (80.0-100.0) fL MCH (25.0-35.0) pg MCHC (31.0-37.0) g/dL RDW (11.5-15.5) % Plt Count (150-450) k/uL MPV Neutrophils % % Lymphocytes % % Monocytes % % Eosinophils % % Basophils % % Neutrophils # (1.3-7.7) k/uL Lymphocytes # (1.0-4.8) k/uL Monocytes # (0-1.0) k/uL Eosinophils # (0-0.7) k/uL Basophils # (0-0.2) k/uL PT (9.0-12.0) sec INR (<1.2) APTT (22.0-30.0) sec Sodium (137-145) mmol/L Potassium (3.5-5.1) mmol/L Chloride (98-107) mmol/L Carbon Dioxide (22-30) mmol/L Anion Gap mmol/L BUN (7-17) mg/dL Creatinine (0.52-1.04) mg/dL Est GFR (CKD-EPI)AfAm (>60 ml/min/1.73 sqM) Est GFR (CKD-EPI)NonAf (>60 ml/min/1.73 sqM) Glucose (74-99) mg/dL Plasma Lactic Acid Sp 1.1 (0.7-2.0) mmol/L Calcium (8.4-10.2) mg/dL Total Bilirubin (0.2-1.3) mg/dL AST (14-36) U/L ALT (4-34) U/L Alkaline Phosphatase (38-126) U/L Troponin I <0.012 (0.000-0.034) ng/mL Total Protein (6.3-8.2) g/dL Albumin (3.5-5.0) g/dL Urine Color Urine Appearance (Clear) Urine pH (5.0-8.0) Ur Specific [place] (1.001-1.035) Urine Protein (Negative) Urine Glucose (UA) (Negative) Urine Ketones (Negative) Urine Blood (Negative) Urine Nitrite (Negative) Urine Bilirubin (Negative) Urine Urobilinogen (<2.0) mg/dL Ur Leukocyte Esterase (Negative) Influenza Type A (PCR) Not Detected (Not Detectd) Influenza Type B (PCR) Not Detected (Not Detectd) RSV (PCR) Not Detected (Not Detectd) SARS-CoV-2 (PCR) Not Detected (Not Detectd) 04/16/23 Range/Units 07:40 WBC (3.8-10.6) k/uL RBC (3.80-5.40) m/uL Hgb (11.4-16.0) gm/dL Hct (34.0-46.0) % MCV (80.0-100.0) fL MCH (25.0-35.0) pg MCHC (31.0-37.0) g/dL RDW (11.5-15.5) % Plt Count (150-450) k/uL MPV Neutrophils % % Lymphocytes % % Monocytes % % Eosinophils % % Basophils % % Neutrophils # (1.3-7.7) k/uL Lymphocytes # (1.0-4.8) k/uL Monocytes # (0-1.0) k/uL Eosinophils # (0-0.7) k/uL Basophils # (0-0.2) k/uL PT (9.0-12.0) sec INR (<1.2) APTT (22.0-30.0) sec Sodium (137-145) mmol/L Potassium (3.5-5.1) mmol/L Chloride (98-107) mmol/L Carbon Dioxide (22-30) mmol/L Anion Gap mmol/L BUN (7-17) mg/dL Creatinine (0.52-1.04) mg/dL Est GFR (CKD-EPI)AfAm (>60 ml/min/1.73 sqM) Est GFR (CKD-EPI)NonAf (>60 ml/min/1.73 sqM) Glucose (74-99) mg/dL Plasma Lactic Acid Sp (0.7-2.0) mmol/L Calcium (8.4-10.2) mg/dL Total Bilirubin (0.2-1.3) mg/dL AST (14-36) U/L ALT (4-34) U/L Alkaline Phosphatase (38-126) U/L Troponin I (0.000-0.034) ng/mL Total Protein (6.3-8.2) g/dL Albumin (3.5-5.0) g/dL Urine Color Colorless Urine Appearance Clear (Clear) Urine pH 6.5 (5.0-8.0) Ur Specific [place] 1.001 (1.001-1.035) Urine Protein Negative (Negative) Urine Glucose (UA) Negative (Negative) Urine Ketones Negative (Negative) Urine Blood Negative (Negative) Urine Nitrite Negative (Negative) Urine Bilirubin Negative (Negative) Urine Urobilinogen <2.0 (<2.0) mg/dL Ur Leukocyte Esterase Negative (Negative) Influenza Type A (PCR) (Not Detectd) Influenza Type B (PCR) (Not Detectd) RSV (PCR) (Not Detectd) SARS-CoV-2 (PCR) (Not Detectd) - Radiology Data Radiology results: report reviewed, image reviewed Disposition Clinical Impression: Melena, Diarrhea, Colitis Disposition: HOME SELF-CARE Instructions (If sedation given, give patient instructions): Acute Diarrhea (ED), Colitis (ED) Additional Instructions: Return to the emergency department with any new, worsening, or concerning symptoms. Take the stool sample to the lab as soon as you are able to. Take the Imodium as follows for diarrhea. Take 2 capsules (4mg) at the first loose stool. Take an additional capsule (2mg) after each loose stool afterwards. Do not take more than 8 capsules (16mg) daily. Make sure that you remain well hy drated. Follow up with your primary care provider in 1-2 days. Prescriptions: Loperamide [Imodium] 2 mg PO DIRECTED PRN #30 capsule PRN Reason: Diarrhea Is patient prescribed a controlled substance at d/c from ED?: No Referrals: Jason Killian MD [Primary Care Provider] - 1-2 days
[2023-04-16 06:44] LABS: ALT 25 U/L (4-34); AST 37 U/L (14-36); African American GFR (CKD) >90 (>60 ml/min/1.73 sqM); Alkaline Phosphatase 120 U/L (38-126); Blood Urea Nitrogen 13 mg/dL (7-17); Calcium 9.1 mg/dL (8.4-10.2); Carbon Dioxide 25 mmol/L (22-30); Glucose 103 mg/dL (74-99); INR 0.9 (<1.2); Non-African American GFR(CKD) 82 (>60 ml/min/1.73 sqM); Partial Thromboplastin Time 24.6 sec (22.0-30.0); Prothrombin Time 10.1 sec (9.0-12.0); Total Bilirubin 0.7 mg/dL (0.2-1.3); Total Protein 6.8 g/dL (6.3-8.2)
[2023-04-16 06:50] LABS: Anion Gap 7 mmol/L; Chloride 95 mmol/L (98-107); Sodium 127 mmol/L (137-145)
[2023-04-16 07:59] LABS: Appearance,Urine Clear (Clear); Bilirubin,Urine Negative (Negative); Blood,Urine Negative (Negative); Color,Urine Colorless; Glucose,Urine (UA) Negative (Negative); Ketones,Urine Negative (Negative); Leukocyte Esterase,Urine Negative (Negative); Nitrite,Urine Negative (Negative); PH, Urine 6.5 (5.0-8.0); Protein,Urine Negative (Negative); Specific Gravity,Urine 1.001 (1.001-1.035); Urobilinogen,Urine <2.0 mg/dL (<2.0)
[2023-04-16] MEDS ORDERED: methylPREDNISolone SOD SUCCI 125 MG/2 ML VIAL IV STA (09:29)
[2023-04-16] MEDS ORDERED: diphenhydrAMINE 50 MG/ML 1 ML VIAL IVP STA (09:29)
[2023-04-16] MEDS ORDERED: FAMOTIDINE 20 MG/2 ML VIAL IV STA (09:29)
--- NOTE | 2023-04-16 10:26 | CT ---
EXAMINATION TYPE: CT abdomen pelvis w con DATE OF EXAM: 04/16/2023 COMPARISON: 10/05/2018 HISTORY: 87-year-old female with melena, ABD PAIN TECHNIQUE: Contiguous axial scanning of the abdomen and pelvis following administration of 100 ml Iso barrie 300 IV contrast. Delayed images through the kidneys and coronal/sagittal reconstructions perform ed. CT DLP: 998.3 mGycm Automated exposure control for dose reduction was used. FINDINGS: Heart upper limits of normal in size without pericardial effusion. Interstitial changes at the lung b ases slightly increased from 2019. There is a patulous and fluid-filled lower thoracic esophagus. Mildly dilated bile duct at 9 mm remains unchanged, likely chronic postcholecystectomy status. Portal venous system is patent. No focal liver lesion. Adrenal glands, spleen, and atrophic pancreas otherwise show no gross abnormal body. A few scattered small renal cortical cysts measuring up to 1.4 cm. Mild atherosclerotic calcifications abdominal aorta. No dilated small bowel, free fluid, or free air. Normal appendix. Stable prominent 7 mm right lower quadrant mesenteric lymph node suggesting a chronic reactive etiolo gy. There is liquid stool throughout the colon. Segments of mild circumferential wall thickening are present particularly along the ascending colon. No deonte pericolonic inflammatory change is seen. Metal artifact related to the patient's left hip arthroplasty limits visualization of the pelvis. Num erous pelvic phleboliths are present. Bladder partially distended. Uterus anteverted. The endometrial stripe may measure up to 7 mm in thickness. This can be further evaluated with pelvic ultrasound non emergently. Small bilateral ovaries. No abnormal fluid collection in the pelvis. No pelvic lymphadeno kathryn. Bones: Left hip total arthroplasty. Degenerated dextro convex scoliosis upper lumbar spine. Grade 1 a nterolisthesis L3-L4 and L4-L5. Grade 1 retrolisthesis L1-L2. IMPRESSION: 1. LIQUID STOOL THROUGHOUT THE COLON WITH MILD WALL THICKENING ALONG THE ASCENDING COLON. CORRELATE F OR NONSPECIFIC MILD COLITIS. 2. INTERSTITIAL AND GROUNDGLASS CHANGES IN THE LOWER LUNGS INCREASED FROM 2019. CONSIDER ETIOLOGIES S UCH NSIP OR CHRONIC ASPIRATION. NOTE THAT THE VISUALIZED LOWER ESOPHAGUS IS PATULOUS AND FLUID-STEPHANE LED. CONSIDER GI REFERRAL IF SYMPTOMATIC LOWER IF THERE IS CONCERN FOR ETIOLOGIES SUCH ACHALASIA. 3. PROMINENT APPEARANCE TO THE ENDOMETRIAL STRIPE ESTIMATED AT 7 MM. THIS CAN BE FURTHER ASSESSED WIT H NONEMERGENT PELVIC ULTRASOUND.
[2023-04-16 11:09] VITALS: BP 140/99; PULSE 80; RESP 19; TEMP 98
== END 2023-04-16 11:09 | disposition home or self-care (01) ==
LOC: EC 06:06
DX: K92.1 Melena (principal); K52.9 Noninfective gastroenteritis and colitis, unspecified; J45.909 Unspecified asthma, uncomplicated; K21.9 Gastro-esophageal reflux disease without esophagitis; I10 Essential (primary) hypertension; M19.90 Unspecified osteoarthritis, unspecified site; F41.9 Anxiety disorder, unspecified; E03.9 Hypothyroidism, unspecified; Z87.891 Personal history of nicotine dependence; Z79.82 Long term (current) use of aspirin; Z79.1 Long term (current) use of non-steroidal anti-inflammatories (NSAID); Z79.899 Other long term (current) drug therapy; Z79.890 Hormone replacement therapy; Z91.09 Other allergy status, other than to drugs and biological substances; Z91.030 Bee allergy status; Z88.2 Allergy status to sulfonamides; Z88.8 Allergy status to other drugs, medicaments and biological substances; Z20.822 Contact with and (suspected) exposure to COVID-19; Z88.1 Allergy status to other antibiotic agents
CPT/HCPCS: 36415; 93005; 80053; 83605; 84484; 85025; 85610; 85730; 81003; 87636; 74177; 99285; 96374; 96375 ×4; 96361; J1200; J2930; J3490; J2270; C9113; Q9967

== ENCOUNTER → 2023-06-07 | Outpatient (CLI) | payer MEDICARE, BC ==
[2023-06-07 15:30] LABS: Partial Thromboplastin Time 24.6 sec (22.0-30.0); Prothrombin Time 10.3 sec (9.0-12.0)
[2023-06-07 19:14] LABS: Basophils # (A) 0.05 X 10*3/uL (0.00-0.10); Basophils % (A) 0.6 %; Eosinophils # (A) 0.62 X 10*3/uL (0.04-0.35); Eosinophils % (A) 7.4 %; HCT 40.7 % (37.2-46.3); HGB 13.2 d/dL (12.0-15.0); Lymphocytes # (A) 1.86 X 10*3/uL (0.90-5.00); Lymphocytes % (A) 22.1 %; MCH 30.1 pg (27.0-32.0); MCHC 32.4 d/dL (32.0-37.0); MCV 92.9 FL (80.0-97.0); Mean Platelet Volume 10.5 FL (9.5-12.2); Monocytes % (A) 7.1 %; NRBC Per 100 WBC 0 X 10*3/uL (0.00-0.01); Neutrophils # (A) 5.24 X 10*3/uL (1.80-7.70); Neutrophils % (A) 62.4 %; Platelet Count 261 X 10*3/uL (140-440); RBC 4.38 X 10*6/uL (4.10-5.20); RDW 14.2 % (11.5-14.5)
[2023-06-07 21:18] LABS: ALT 33 U/L (8-44); AST 37 U/L (13-35); Albumin 4.3 d/dL (3.8-4.9); Albumin/Globulin Ratio 1.72 Ratio (1.60-3.17); Alkaline Phosphatase 146 U/L (41-126); Blood Urea Nitrogen 12.6 mg/dL (9.0-27.0); Calcium 9.5 mg/dL (8.7-10.3); Cancer Antigen 153 43.4 U/mL (0.0-32.3); Carbon Dioxide 26.5 mmol/L (21.6-31.8); Chloride 101 mmol/L (96-109); Globulin 2.5 d/dL (1.6-3.3); Glucose 92 mg/dL (70-110); Potassium 4.8 mmol/L (3.5-5.5); Sodium 140 mmol/L (135-145); Total Bilirubin 0.8 mg/dL (0.3-1.2); Total Protein 6.8 d/dL (6.2-8.2)
== END | disposition home or self-care (01) ==
LOC: LABPAT 13:24
PROVIDERS: ATTEND Internal Medicine Geriatric Medicine
DX: Z01.89 Encounter for other specified special examinations (principal); Z13.1 Encounter for screening for diabetes mellitus; C50.511 Malignant neoplasm of lower-outer quadrant of right female breast; I10 Essential (primary) hypertension; M17.11 Unilateral primary osteoarthritis, right knee; Z17.0 Estrogen receptor positive status [ER+]; J30.9 Allergic rhinitis, unspecified
CPT/HCPCS: 80053; 83036; 85025; 85610; 85730; 86300; 87070

== ENCOUNTER → 2023-09-07 | Outpatient (CLI) | payer MEDICARE, BC ==
--- NOTE | 2023-09-10 17:11 | MM ---
Reason for Exam: Screening (asymptomatic). Last screening mammogram was performed 12 month(s) ago. Patient History: Menarche at age 14. First Full-Term at age 21. Postmenopausal. Breast cancer, right, age 64. Estrogen, starting at age 57 for 1 year. Progesterone, starting at age 57 for 1 year. Tamoxifen for 13 years from age 64 until age 77. Lumpectomy on the Right side. Excisional Biopsy on the Left side. 01/31/2000, Malignant Excisional Biopsy on the right side. Radiation Therapy, right. Chemotherapy. Sister had breast cancer, age 70. Prior Study Comparison: 08/29/2021 Bilateral Diagnostic Mammogram, [facility]. 08/30/2022 Bilateral MG 3D screening mammo w/cad, [facility]. 09/06/2022 Left MG 3D work up w/cad LT, [facility]. Tissue Density: The breast tissue is heterogeneously dense. This may lower the sensitivity of mammography. Findings: Analyzed By CAD. Postsurgical and posttreatment change of the right. Unchanged central asymmetric density left MLO view. There is no suspicious group of microcalcifications or new suspicious mass in either breast. Overall Assessment: Benign, BI-RAD 2 Management: Screening Mammogram of both breasts in 1 year. . Patient should continue monthly self-breast exams. A clinical breast exam by your physician is recommended on an annual basis. This exam should not preclude additional follow-up of suspicious palpable abnormalities. Electronically signed and approved by: Rebecca Del Rosario M.D. Radiologist
== END | disposition home or self-care (01) ==
LOC: RADMAMWWP 12:55
PROVIDERS: ATTEND Internal Medicine Hematology & Oncology
DX: Z12.31 Encounter for screening mammogram for malignant neoplasm of breast (principal); Z78.0 Asymptomatic menopausal state; Z80.3 Family history of malignant neoplasm of breast; Z85.3 Personal history of malignant neoplasm of breast
CPT/HCPCS: 77063; 77067

== ENCOUNTER 2023-11-27 19:41 | Emergency (ER) | payer MEDICARE, BC ==
[2023-11-27 19:51] VITALS: TEMP 97.8
[2023-11-27] MEDS: LIDOCAINE/EPINEPHR/TETRACAINE 5 ML BOTTLE TOPICAL ONE (20:12)
--- NOTE | 2023-11-27 20:42 | ED ---
General Adult HPI - General Chief complaint: Recheck/Abnormal Lab/Rx Stated complaint: Bleeding Time Seen by Provider: 11/27/23 19:51 Source: patient, EMS Mode of arrival: EMS Limitations: no limitations - History of Present Illness Initial comments: 87-year-old female presenting with chief complaint of bleeding from surgical incision. Patient had a tendon repair to the left knee performed 2 weeks ago. She was seen at her orthopedist office today, she had her sutures removed, however there was an area of dehiscence. There were about 5 or 6 sutures a pplied to this area, they placed a wound VAC and the patient was sent back to the correction. This evening the patient started having bleeding from the incision that has been leaking around the wound VAC. Patient is on Plavix. She has had no injury or trauma. No pain. - Related Data Home Medications Medication Instructions Recorded Confirmed Tolterodine Tartrate [Detrol LA] 4 mg PO DAILY@0800 09/08/16 11/27/23 Celecoxib [CeleBREX] 200 mg PO DAILY@0800 07/24/21 11/27/23 Gabapentin [Neurontin] 300 mg PO TID@0800,1400,2100 07/24/21 11/27/23 Loratadine [Alavert] 10 mg PO DAILY@0800 07/24/21 11/27/23 Pilocarpine HCl 5 mg PO BID@0800,2100 07/24/21 11/27/23 Metoprolol Tartrate [Lopressor] 25 mg PO DAILY@0800 10/17/21 11/27/23 Acetaminophen Tab [Tylenol Tab] 1,000 mg PO Q8HR@0600,1400,2200 11/27/23 11/27/23 Aspirin EC [Ecotrin Low Dose] 81 mg PO HS@1700 11/27/23 11/27/23 Atorvastatin [Lipitor] 80 mg PO HS 11/27/23 11/27/23 Clopidogrel [Plavix] 75 mg PO DAILY@0800 11/27/23 11/27/23 Furosemide [Lasix] 20 mg PO DAILY@0800 11/27/23 11/27/23 Levothyroxine Sodium [Synthroid] 88 mcg PO DAILY@0600 11/27/23 11/27/23 Losartan [Cozaar] 50 mg PO HS 11/27/23 11/27/23 Magnesium Hydroxide [Milk of 7,200 mg PO DAILY PRN 11/27/23 11/27/23 Magnesia Concentrate] Melatonin 5 mg PO HS 11/27/23 11/27/23 Melatonin 5 mg PO HS PRN 11/27/23 11/27/23 Multivitamins, Thera [Multivitamin 1 tab PO HS@1700 11/27/23 11/27/23 (formulary)] Na Phos,M-B/Na Phos,Di-Ba [Fleet 133 ml RECTAL DAILY PRN 11/27/23 11/27/23 Adult] Pantoprazole Sodium [Protonix] 40 mg PO DAILY@0600 11/27/23 11/27/23 Potassium Chloride ER [K-Dur 10] 10 meq PO HS@1700 11/27/23 11/27/23 Sennosides/Docusate Sodium [Senna 1 tab PO BID@0800,1700 11/27/23 11/27/23 Plus 8.6-50 mg Tablet] Triamcinolone 0.5% Cream [Kenalog 1 applic TOPICAL BID@0800,2100 11/27/23 11/27/23 0.5% Cream] Vancomycin 1,000 mg IVPB DAILY@0800 11/27/23 11/27/23 bisacodyL [Dulcolax] 10 mg RECTAL DAILY PRN 11/27/23 11/27/23 oxyCODONE HCL [OxyIR] 5 mg PO Q4H PRN 11/27/23 11/27/23 Allergies Allergy/AdvReac Type Severity Reaction Status Date / Time adhesive tape Allergy Severe Rash/Hives Verified 11/27/23 21:05 povidone-iodine Allergy Severe Rash/Hives Verified 11/27/23 21:05 [From Betadine] bee venom protein (honey bee) Allergy Anaphylaxis Verified 11/27/23 21:05 Sulfa (Sulfonamide Allergy Rash/Hives Verified 11/27/23 21:05 Antibiotics) pioglitazone [From Actos] AdvReac Nausea & Verified 11/27/23 21:05 Vomiting Review of Systems ROS Statement: Those systems with pertinent positive or pertinent negative responses have been documented in the HPI. ROS Other: All systems not noted in ROS Statement are negative. 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 wears compression socks. c/o shortness of breath. 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 Past Anesthesia/Blood Transfusion Reactions: Previous Problems w/ Anesthesia Additional Past Anesthesia/Blood Transfusion Reaction / Comment(s): Had mult prob after knee surg 2019. Do not use Rt arm. Past Psychological History: Anxiety Smoking Status: Former smoker Past Alcohol Use History: Occasional Past Drug Use History: None Reported - Past Family History Father Family Medical History: Myocardial Infarction ([place]) Additional Family Medical History / Comment(s): Father of a massive [place] in his late 60s. He was an alcoholic and a smoker. Mother History Unknown: Yes Additional Family Medical History / Comment(s): Mother was healthy and lived to be 94 yrs old. Brother(s) Family Medical History: Cancer Additional Family Medical History / Comment(s): lung cancer Sister(s) Family Medical History: Cancer Additional Family Medical History / Comment(s): breast cancer General Exam Limitations: no limitations General appearance: alert, in no apparent distress Head exam: Present: atraumatic, normocephalic Eye exam: Present: normal appearance, EOMI Neck exam: Present: normal inspection. Absent: meningismus Respiratory exam: Absent: respiratory distress Cardiovascular Exam: Present: regular rate Left Knee exam: Absent: normal inspection (Patient has bleeding around sutures of the left knee incision), full ROM Neurological exam: Present: alert, oriented X3 Psychiatric exam: Present: normal affect, normal mood Course Vital Signs 11/27/23 11/27/23 19:43 22:10 Temperature 97.8 F Pulse Rate 90 82 Respiratory 18 16 Rate Blood Pressure 180/93 153/75 O2 Sat by Pulse 98 96 Oximetry Medical Decision Making - Medical Decision Making Was pt. sent in by a medical professional or institution (KITTY Luna, NEMATOLOGY TEACHER, urgent care, hospital, or correction...) When possible be specific @ -No Did you speak to anyone other than the patient for history (EMS, parent, family, police, friend...)? What history was obtained from this source @ -No Did you review nursing and triage notes (agree or disagree)? Why? @ -I reviewed and agree with nursing and triage notes Were old charts reviewed (outside hosp., previous admission, EMS record, old EKG, old radiological studies, urgent care reports/EKG's, correction records)? Report findings @ -No old charts were reviewed Differential Diagnosis (chest pain, altered mental status, abdominal pain women, abdominal pain men, vaginal bleeding, weakness, fever, dyspnea, syncope, headache, dizziness, GI bleed, back pain, seizure, CVA, palpatations, mental health, musculoskeletal)? @ -Differential includes postoperative bleeding, hematoma, infection, wound dehiscence, this is not an all-inclusive list EKG interpreted by me (3pts min.). @ -As above X-rays interpreted by me (1pt min.). @ -None done CT interpreted by me (1pt min.). @ -None done U/S interpreted by me (1pt. min.). @ -None done What testing was considered but not performed or refused? (CT, X-rays, U/S, labs)? Why? @ -None What meds were considered but not given or refused? Why? @ -None Did you discuss the management of the patient with other professionals (professionals i.e. KITTY Luna, NEMATOLOGY TEACHER, lab, RT, psych nurse, social media marketing manager, nursing staffing coordinator, teacher, child support case officer, showcase trimmer)? Give summary @ -No Was smoking cessation discussed for >3mins.? @ -No Was critical care preformed (if so, how long)? @ -No Were there social determinants of health that impacted care today? How? (Homelessness, low income, unemployed, alcoholism, drug addiction, transportation, low edu. Level, literacy, decrease access to med. care, intermediate, rehab)? @ -No Was there de-escalation of care discussed even if they declined (Discuss DNR or withdrawal of care, Hospice)? DNR status @ -No What co-morbidities impacted this encounter? (DM, HTN, Smoking, COPD, CAD, Cancer, CVA, ARF, Chemo, Hep., AIDS, mental health diagnosis, sleep apnea, m orbid obesity)? @ -None Was patient admitted / discharged? Hospital course, mention meds given and route, prescriptions, significant lab abnormalities, going to OR and other pertinent info. @ -87-year-old female presenting with chief complaint of bleeding from her postoperative incision. She had her sutures removed today in her orthopedic surgeon's office, she did have some new sutures applied to an area that had dehisced. She is having bleeding from this area that is leaking around her wound VAC. She is on Plavix. The wound VAC is removed. Let solution and pressure are applied and the bleeding is stopped. She is able to ambulate without recurrence of the bleeding. Wound VAC is reapplied by nursing staff. Patient is instructed to call the office tomorrow to schedule follow-up. D ischarged back to correction. Follow-up with PCP. Report back to ER with any new or worsening symptoms. Discussed return parameters and answered all questions. Patient conveyed verbal understanding and agreed to the plan. I discussed this case in detail with my attending Dr. Adams Undiagnosed new problem with uncertain prognosis? @ -No Drug Therapy requiring intensive monitoring for toxicity (Heparin, Nitro, Insulin, Cardizem)? @ -No Were any procedures done? @ -No Diagnosis/symptom? @ -Postoperative bleeding Acute, or Chronic, or Acute on Chronic? @ -Acute Uncomplicated (without systemic symptoms) or Complicated (systemic symptoms)? @ -Uncomplicated Side effects of treatment? @ -No Exacerbation, Progression, or Severe Exacerbation? @ -No Poses a threat to life or bodily function? How? (Chest pain, [place], [place], pneumonia, PE, COPD, DKA, ARF, appy, cholecystitis, CVA, Diverticulitis, Homicidal, Suicidal, threat to staff... and all critical care pts) @ -No Disposition Clinical Impression: Postoperative bleeding from incision Disposition: HOME SELF-CARE Condition: Good Additional Instructions: Follow-up with your surgeon. Report back to ER with any new or worsening symptoms. Is patient prescribed a controlled substance at d/c from ED?: No Referrals: Jason Killian MD [Primary Care Provider] - 1-2 days Time of Disposition: 21:56
[2023-11-27 22:25] VITALS: BP 153/75; PULSE 82; RESP 16
== END 2023-11-27 23:00 | disposition home or self-care (01) ==
LOC: EC 19:41
DX: L76.22 Postprocedural hemorrhage of skin and subcutaneous tissue following other procedure (principal); Z88.2 Allergy status to sulfonamides; Z88.8 Allergy status to other drugs, medicaments and biological substances; Z91.041 Radiographic dye allergy status; Z91.030 Bee allergy status; Z91.09 Other allergy status, other than to drugs and biological substances; Z87.891 Personal history of nicotine dependence
CPT/HCPCS: 99284

== ENCOUNTER → 2024-02-19 | Outpatient (CLI) | payer MEDICARE, BC ==
--- NOTE | 2024-02-19 14:26 | XR ---
EXAMINATION TYPE: XR chest 2V DATE OF EXAM: 02/19/2024 COMPARISON: 07/24/2021 HISTORY: 88-year-old female R05.1, acute cough TECHNIQUE: Frontal and lateral views FINDINGS: Heart limits of normal in size. Aorta and pulmonary vasculature within normal limits. Interstitial de nsity is similar. No deonte consolidation or pleural effusion. IMPRESSION: Persistent or recurrent interstitial density. Consider bronchitis, atypical pneumonia, or interstiti al pneumonitis. Suspect some underlying concurrent interstitial fibrosis.
== END | disposition home or self-care (01) ==
LOC: RADXRMAIN 12:13
PROVIDERS: ATTEND Internal Medicine Geriatric Medicine
DX: J40 Bronchitis, not specified as acute or chronic (principal); J18.9 Pneumonia, unspecified organism
CPT/HCPCS: 71046

== ENCOUNTER 2024-03-16 15:38 | Emergency (ER) | payer MEDICARE, BC ==
[2024-03-16 15:43] VITALS: TEMP 97.8
--- NOTE | 2024-03-16 16:34 | ED ---
Fall HPI - General Chief Complaint: Fall Stated Complaint: Fall, back pain Time Seen by Provider: 03/16/24 15:55 Source: patient Mode of arrival: ambulatory - History of Present Illness Initial Comments: Patient is an 88-year-old female presenting for right rib pain. Patient states 2 to 3 days ago she was walking, tripped and fell and hit her right side against a dresser. She did not have any pain at the time was able to ambulate afterwards. Suffered no head or neck trauma. Today she noticed a large hematoma in the region where she was hit by the dresser and posterior right rib pain when she tried to go to bed last night. She took 500 mg of Tylenol which improved her pain. She went to an urgent care and was sent here for further evaluation. Patient states that she feels short of breath however this has been persistent since being treated for pneumonia. It has not worsened. She endorses cough but no hemoptysis. No fevers, no chest pain. No lower extremity swelling. Patient does state that though she did not hit her head when she fell but she felt feels like "she has white noise in her head." Denies any neck pain, headache, new numbness pain or weakness in her extremities, denies vision changes.No nausea but yesterday did have episode of diarrhea, states this happens when she is on antibiotics. - Related Data Home Medications Medication Instructions Recorded Confirmed Tolterodine Tartrate [Detrol LA] 4 mg PO DAILY@0800 09/08/16 11/27/23 Celecoxib [CeleBREX] 200 mg PO DAILY@0800 07/24/21 11/27/23 Gabapentin [Neurontin] 300 mg PO TID@0800,1400,209907/24/21 11/27/23 Loratadine [Alavert] 10 mg PO DAILY@0800 07/24/21 11/27/23 Pilocarpine HCl 5 mg PO BID@0800,2100 07/24/21 11/27/23 Metoprolol Tartrate [Lopressor] 25 mg PO DAILY@0800 10/17/21 11/27/23 Acetaminophen Tab [Tylenol Tab] 1,000 mg PO Q8HR@0600,1400,2200 11/27/23 11/27/23 Aspirin EC [Ecotrin Low Dose] 81 mg PO HS@1700 11/27/23 11/27/23 Atorvastatin [Lipitor] 80 mg PO HS 11/27/23 11/27/23 Clopidogrel [Plavix] 75 mg PO DAILY@0800 11/27/23 11/27/23 Furosemide [Lasix] 20 mg PO DAILY@0800 11/27/23 11/27/23 Levothyroxine Sodium [Synthroid] 88 mcg PO DAILY@0600 11/27/23 11/27/23 Losartan [Cozaar] 50 mg PO HS 11/27/23 11/27/23 Magnesium Hydroxide [Milk of 7,200 mg PO DAILY PRN 11/27/23 11/27/23 Magnesia Concentrate] Melatonin 5 mg PO HS 11/27/23 11/27/23 Melatonin 5 mg PO HS PRN 11/27/23 11/27/23 Multivitamins, Thera [Multivitamin 1 tab PO HS@17011/27/23 11/27/23 (formulary)] Na Phos,M-B/Na Phos,Di-Ba [Fleet 133 ml RECTAL DAILY PRN 11/27/23 11/27/23 Adult] Pantoprazole Sodium [Protonix] 40 mg PO DAILY@0611/27/23 11/27/23 Potassium Chloride ER [K-Dur 10] 10 meq PO HS@1700 11/27/23 11/27/23 Sennosides/Docusate Sodium [Senna 1 tab PO BID@0800,17011/27/23 11/27/23 Plus 8.6-50 mg Tablet] Triamcinolone 0.5% Cream [Kenalog 1 applic TOPICAL BID@0800,2100 11/27/23 11/27/23 0.5% Cream] Vancomycin 1,000 mg IVPB DAILY@0811/27/23 11/27/23 bisacodyL [Dulcolax] 10 mg RECTAL DAILY PRN 11/27/23 11/27/23 oxyCODONE HCL [OxyIR] 5 mg PO Q4H PRN 11/27/23 11/27/23 Allergies Allergy/AdvReac Type Severity Reaction Status Date / Time adhesive tape Allergy Severe Rash/Hives Verified 03/16/24 15:43 povidone-iodine Allergy Severe Rash/Hives Verified 03/16/24 15:43 [From Betadine] bee venom protein (honey bee) Allergy Anaphylaxis Verified 03/16/24 15:43 Sulfa (Sulfonamide Allergy Rash/Hives Verified 03/16/24 15:43 Antibiotics) pioglitazone [From Actos] AdvReac Nausea & Verified 03/16/24 15:43 Vomiting Review of Systems ROS Statement: Those systems with pertinent positive or pertinent negative responses have been documented in the HPI. Constitutional: Denies: fever, chills Eyes: Denies: vision change Respiratory: Reports: cough, dyspnea. Denies: hemoptysis Cardiovascular: Denies: chest pain, edema Gastrointestinal: Reports: diarrhea. 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 wears compression socks. c/o shortness of breath. History of Any Multi-Drug Resistant Organisms: None Reported Past Surgical History: Adenoidectomy, Breast Surgery, Cholecystectomy, Joint Re placement, Orthopedic Surgery, Tonsillectomy, Tubal Ligation Additional Past Surgical History / Comment(s): Total L hip arthroplasty, total bilat knee arthroplasties, bilat feet bunionectomies, R breast lumpectomy w/ lymph node disection, demise/surgery to remove, bilat cataract removals. Past Anesthesia/Blood Transfusion Reactions: Previous Problems w/ Anesthesia Additional Past Anesthesia/Blood Transfusion Reaction / Comment(s): Had mult prob after knee surg 2019. Do not use Rt arm. Past Psychological History: Anxiety Smoking Status: Former smoker Past Alcohol Use History: Occasional Past Drug Use History: None Reported - Past Family History Father Family Medical History: Myocardial Infarction (WA) Additional Family Medical History / Comment(s): Father of a massive [place] in his late 60s. He was an alcoholic and a smoker. Mother History Unknown: Yes Additional Family Medical History / Comment(s): Mother was healthy and lived to be 94 yrs old. Brother(s) Family Medical History: Cancer Additional Family Medical History / Comment(s): lung cancer Sister(s) Family Medical History: Cancer Additional Family Medical History / Comment(s): breast cancer General Exam - General Exam Comments Initial Comments: PE: CONSTITUTIONAL: no apparent distress, well appearing SKIN: warm, dry, no jaundice, hives or petechiae. Large hematoma to right lateral posterior chest wall, point TTP posterior right rib near ribs 7/8, no crepitus EYES: pupils are equally round, extraocular movements intact without nystagmus, clear conjunctiva, non-icteric sclera HENT: normocephalic, atraumatic, moist mucus membranes, oropharynx clear without exudates NECK: Nontender and supple with no nuchal rigidity, no lymphadenopathy, full range of motion, no midline C-spine tenderness, able to move through full range of motion without neck pain, radiculopathy or numbness in her extremities PULMONARY: clear to auscultation without wheezes, rhonchi, or rales, normal excursion, no accessory muscle use and no stridor CARDIOVASCULAR: regular rate, rhythm, normal S1 and S2. No appreciated murmurs. Strong radial pulses with intact distal perfusion GASTROINTESTINAL: soft, non-tender, non-distended, no palpable masses, no rebound or guarding LYMPHATICS: no edema in lower extremities MUSCULOSKELETAL: Extremities are nontender to palpation and have no gross deformity, no edema, redness, or swelling, though limited as patient does have knee brace on the left lower extremity there from chronic knee issues NEUROLOGIC: _a/o x 3, GCS 15, normal mentation and speech. Moves all extremities x 4 without motor or sensory deficit PSYCHIATRIC: _normal mood and affect, thought process is clear and linear Limitations: no limitations Course Vital Signs 03/16/24 03/16/24 03/16/24 15:39 18:26 19:33 Temperature 97.8 F 97.8 F Pulse Rate 74 65 68 Respiratory 18 18 17 Rate Blood Pressure 155/79 120/84 117/84 O2 Sat by Pulse 94 L 100 99 Oximetry - Reevaluation(s) Reevaluation #1: CT brain and C-spine reviewed, shows no acute intracranial process CT brain reviewed, no acute intracranial process, no evidence of cervical spine fracture, reviewed imaging myself, I see no evidence of hemorrhage, acute intracranial process, fracture or malalignment on CT brain or CT C-spine respectively, CT PE study reviewed by myself, I see no evidence of pulmonary embolism, hemothorax, pneumothorax or effusion. I do see what appears to be 2 fractures in the posterior right ribs near ribs 7 and 8, currently pending radiologist review. 03/16/24 18:13 03/16/24 18:13 03/17/24 10:10 Reevaluation #2: CT chest read as no chest wall fractures visualized, mild edema or hematoma lateral chest wall no PE or acute thoracic process, layering in the esophagus for esophageal dysmotility with reflux, elevated right diaphragm, cardiomegaly and pulmonary vascular congestion correlate BNP for congestive heart failure- BNP mildly elevated at 218. Compared patient CT chest to x-ray performed on 02/[address] abdomen pelvis performed in 2022 which the chest was partially imaged, which showed the right renal the right diaphragm appears elevated in these sets of imaging as well, does not appear significantly changed from prior. Patient does not have any new shortness of breath since her fall. 03/16/24 18:33 03/16/24 18:33 03/17/24 10:10 Medical Decision Making - Medical Decision Making Was pt. sent in by a medical professional or institution (Dr. PA, TRANSPLANT RN, urgent care, hospital, or alf...) When possible be specific @ -No Did you speak to anyone other than the patient for history (EMS, parent, family, police, friend...)? What history was obtained from this source @ -No Did you review nursing and triage notes (agree or disagree)? Why? @ -I reviewed and agree with nursing and triage notes Were old charts reviewed (outside hosp., previous admission, EMS record, old EKG, old radiological studies, urgent care reports/EKG's, alf records)? Report findings @ -Chest x-ray and CT abdomen pelvis were reviewed for comparison of right hemidiaphragm elevation, please see ED course for radiation Differential Diagnosis (chest pain, altered mental status, abdominal pain women, abdominal pain men, vaginal bleeding, weakness, fever, dyspnea, syncope, headache, dizziness, GI bleed, back pain, seizure, CVA, palpatations, mental health, musculoskeletal)? @ -Differential Musculoskeletal Muscular strain, contusion, rib fracture, vascular injury, PE, PNA this is not meant to be in all inclusive list. EKG interpreted by me (3pts min.). @ -As above X-rays interpreted by me (1pt min.). @ -None done CT interpreted by me (1pt min.). @ -Please see ED course U/S interpreted by me (1pt. min.). @ -None done What testing was considered but not performed or refused? (CT, X-rays, U/S, l abs)? Why? @ -X-ray of the ribs was considered however D-dimer was elevated so CT PE study was ordered instead, additionally consider CT abdomen pelvis with contrast however patient did not sustain any injuries to her abdomen or pelvis, denies pain in these areas, no signs of injury to these regions, denies GI symptoms What meds were considered but not given or refused? Why? @ -None Did you discuss the management of the patient with other professionals (professionals i.e. , PA, TRANSPLANT RN, lab, RT, psych nurse, social work supervisor, dietary director, teacher, bank operations officer, vocational case manager)? Give summary @ -No Was smoking cessation discussed for >3mins.? @ -No Was critical care preformed (if so, how long)? @ -No Were there social determinants of health that impacted care today? How? (Homelessness, low income, unemployed, alcoholism, drug addiction, transportation, low edu. Level, literacy, decrease access to med. care, halfway, rehab)? @ -No Was there de-escalation of care discussed even if they declined (Discuss DNR or withdrawal of care, Hospice)? DNR status @ -No What co-morbidities impacted this encounter? (DM, HTN, Smoking, COPD, CAD, Cancer, CVA, ARF, Chemo, Hep., AIDS, mental health diagnosis, sleep apnea, morbid obesity)? @ -None Was patient admitted / discharged? Hospital course, mention meds given and route, prescriptions, significant lab abnormalities, going to OR and other pertinent info. @ -Hospital course discharged-patient is a pleasant 88-year-old female presenting for right posterolateral rib pain and bruising that occurred after a mechanical trip and fall. Incidentally during history taking patient also notes that she feels like she has "white noise in her head" after the fall but denies any head or neck trauma, head is atraumatic, C-spine has no tenderness, she has no numbness or radiculopathy, pupils are equal round and reactive to light, speech is clear, patient is AOx4, she denies any other neurologic symptoms that would indicate acute intracranial traumatic injury however due to patient's age CT brain and C-spine were obtained. Additionally patient describes shortness of breath that she states is not worsened from when she was recently treated for pneumonia and just finished a course of antibiotics however due to its persistence EKG, troponin, BNP and D-dimer were ordered in addition to CBC and CMP. Tylenol and lidocaine patch ordered. Patient agreeable plan of care. Patient with mild leukocytosis white blood cell count 13.2, suspect could be either from recent pneumonia, trauma, D-dimer 3.59, PE study was subsequently ordered and rib x-ray was canceled, troponin less than 0.012, BNP 216. Addtional labs and imaging reviewed. Grossly within normal limits. Abnormal values not concerning for acute pathology related to presenting complaint. Updated patient to finding. Patient ambulated with pulse ox on, remained at 94% with no increased work of breathing, no tachycardia. Discussed plan for discharge. I discussed with her that though the radiologist did not see signs of rib fractures it is still possible there could be a small rib fracture pr esent. For this reason I encouraged her to use her home incentive spirometer 4 times daily to ensure no development of pneumonia. Patient denies any pain currently and states the area only bothers her when she lays down on the area. Patient comfortable with using Tylenol and incentive spirometer at home. Patient follow-up with her Primary care provider. In my medical judgment there is currently no evidence of an immediate life- threatening or surgical condition. Discharge is therefore indicated at this time. Discharge treatment instructions, follow up instructions, and appropriate emerg ency department return precautions were discussed with the patient and/or medical decision maker. Patient and/or medical decision maker expressed understanding of and agreed with the treatment plan, follow up instructions, and emergency department return precaution. All patient's and/or medical decision maker's questions were answered. The patient was advised that a small risk still exists that a serious condition could develop and was therefore instructed to return to the ED for any changes in symptoms, persistent symptoms, inability to obtain proper follow-up or for any further concerns. Patient received verbal and written instructions for this condition. Diagnosis/symptom? @ -Rib contusion/hematoma, fall Acute, or Chronic, or Acute on Chronic? @ -Acute Exacerbation, Progression, or Severe Exacerbation? @ -No - Lab Data Result diagrams: 03/16/24 16:47 03/16/24 16:47 Lab Results 03/16/24 03/16/24 03/16/24 Range/Units 16:47 16:47 16:47 WBC 13.2 H (3.8-10.6) k/uL RBC 4.87 (3.80-5.40) m/uL Hgb 14.4 (11.4-16.0) gm/dL Hct 42.9 (34.0-46.0) % MCV 88.1 (80.0-100.0) fL MCH 29.5 (25.0-35.0) pg MCHC 33.5 (31.0-37.0) g/dL RDW 14.9 (11.5-15.5) % Plt Count 272 (150-450) k/uL MPV 7.5 Neutrophils % 70 % Lymphocytes % 19 % Monocytes % 4 % Eosinophils % 6 % Basophils % 0 % Neutrophils # 9.2 H (1.3-7.7) k/uL Lymphocytes # 2.5 (1.0-4.8) k/uL Monocytes # 0.5 (0-1.0) k/uL Eosinophils # 0.8 H (0-0.7) k/uL Basophils # 0.0 (0-0.2) k/uL PT 10.2 (10.0-12.5) sec INR 0.9 (<1.2) APTT 23.2 (22.0-30.0) sec D-Dimer 3.59 H (<0.60) mg/L FEU Sodium 135 L (137-145) mmol/L Potassium 4.0 (3.5-5.1) mmol/L Chloride 98 (98-107) mmol/L Carbon Dioxide 31 H (22-30) mmol/L Anion Gap 6 mmol/L BUN 16 (7-17) mg/dL Creatinine 0.62 (0.52-1.04) mg/dL Est GFR (CKD-EPI)AfAm >90 (>60 ml/min/1.73 sqM) Est GFR (CKD-EPI)NonAf 82 (>60 ml/min/1.73 sqM) Glucose 117 H (74-99) mg/dL Calcium 9.4 (8.4-10.2) mg/dL Total Bilirubin 1.1 (0.2-1.3) mg/dL AST 37 H (14-36) U/L ALT 28 (4-34) U/L Alkaline Phosphatase 84 (38-126) U/L Troponin I (0.000-0.034) ng/mL NT-Pro-B Natriuret Pep 216 pg/mL Total Protein 6.6 (6.3-8.2) g/dL Albumin 3.8 (3.5-5.0) g/dL 03/16/24 Range/Units 16:47 WBC (3.8-10.6) k/uL RBC (3.80-5.40) m/uL Hgb (11.4-16.0) gm/dL Hct (34.0-46.0) % MCV (80.0-100.0) fL MCH (25.0-35.0) pg MCHC (31.0-37.0) g/dL RDW (11.5-15.5) % Plt Count (150-450) k/uL MPV Neutrophils % % Lymphocytes % % Monocytes % % Eosinophils % % Basophils % % Neutrophils # (1.3-7.7) k/uL Lymphocytes # (1.0-4.8) k/uL Monocytes # (0-1.0) k/uL Eosinophils # (0-0.7) k/uL Basophils # (0-0.2) k/uL PT (10.0-12.5) sec INR (<1.2) APTT (22.0-30.0) sec D-Dimer (<0.60) mg/L FEU Sodium (137-145) mmol/L Potassium (3.5-5.1) mmol/L Chloride (98-107) mmol/L Carbon Dioxide (22-30) mmol/L Anion Gap mmol/L BUN (7-17) mg/dL Creatinine (0.52-1.04) mg/dL Est GFR (CKD-EPI)AfAm (>60 ml/min/1.73 sqM) Est GFR (CKD-EPI)NonAf (>60 ml/min/1.73 sqM) Glucose (74-99) mg/dL Calcium (8.4-10.2) mg/dL Total Bilirubin (0.2-1.3) mg/dL AST (14-36) U/L ALT (4-34) U/L Alkaline Phosphatase (38-126) U/L Troponin I <0.012 (0.000-0.034) ng/mL NT-Pro-B Natriuret Pep pg/mL Total Protein (6.3-8.2) g/dL Albumin (3.5-5.0) g/dL - EKG Data EKG Comments: Sinus rhythm with first-degree AV block 72 bpm MN interval 293 QT/QTc 372/396 Left axis deviation compared to EKG performed on 05/17/23 PVCs are noted on prior EKG, otherwise no significant change from prior Disposition Clinical Impression: Hematoma, Fall Disposition: HOME SELF-CARE Condition: Good Instructions (If sedation given, give patient instructions): Contusion in Adults (ED), Fall Prevention (ED) Additional Instructions: Every disease is a spectrum and a small chance still exists that a serious condition could develop, for this reason, please monitor yourself closely for new, changing or worsening symptoms, symptoms that do not improve in 72 hours, new difficulty breathing, swelling in your legs, chest pain, shortness of francis ath, lightheadedness or dizziness, worsening or rapid swelling in area of bruising, coughing up blood or thick sputum fever, inability to tolerate/keep down fluids or your medications, inability to follow up with outpatient providers as instructed and should you experience these symptoms or should you have any further concerns for your wellbeing please return to the ED or call 911 immediately. You can take up to 1000 mg of acetaminophen (Tylenol) every 6 hours. Be careful as this is included in some medicines like Nyquil, Sumner, Percocet, Vicodin, STANBACK, Goody's Powders, and Excedrin. You can also use lidocaine patches for topical pain. You can purchase 4% patches over the counter at most drug stores. These can be helpful for pain from your muscles or bones. Please use incentive spirometer at home, please use 4 times daily, giving approx 10 breaths per use. PLEASE call your primary care physician as soon as possible to arrange / discuss plan for followup appointment. Appointment in the next 1-3 days is strongly encouraged if possible. PLEASE let us know here before you leave if there is anything further we can do to be of any assistance. Take care and feel Better! Is patient prescribed a controlled substance at d/c from ED?: No Referrals: Jason Killian MD [Primary Care Provider] - 1-2 days Decision Time: 19:20
[2024-03-16] MEDS: ACETAMINOPHEN TAB 500 MG TAB PO STA (16:50)
[2024-03-16 16:57] LABS: Basophils % (A) 0 %; Eosinophils # (A) 0.8 k/uL (0-0.7); Eosinophils % (A) 6 %; HCT 42.9 % (34.0-46.0); HGB 14.4 gm/dL (11.4-16.0); Lymphocytes # (A) 2.5 k/uL (1.0-4.8); Lymphocytes % (A) 19 %; MCH 29.5 pg (25.0-35.0); MCHC 33.5 g/dL (31.0-37.0); MCV 88.1 fL (80.0-100.0); Mean Platelet Volume 7.5; Monocytes # (A) 0.5 k/uL (0-1.0); Monocytes % (A) 4 %; Neutrophils # (A) 9.2 k/uL (1.3-7.7); Neutrophils % (A) 70 %; Platelet Count 272 k/uL (150-450); RBC 4.87 m/uL (3.80-5.40); RDW 14.9 % (11.5-15.5); WBC 13.2 k/uL (3.8-10.6)
[2024-03-16 17:07] LABS: ALT 28 U/L (4-34); AST 37 U/L (14-36); African American GFR (CKD) >90 (>60 ml/min/1.73 sqM); Albumin 3.8 g/dL (3.5-5.0); Alkaline Phosphatase 84 U/L (38-126); Anion Gap 6 mmol/L; Blood Urea Nitrogen 16 mg/dL (7-17); Calcium 9.4 mg/dL (8.4-10.2); Carbon Dioxide 31 mmol/L (22-30); Chloride 98 mmol/L (98-107); Glucose 117 mg/dL (74-99); Non-African American GFR(CKD) 82 (>60 ml/min/1.73 sqM); Sodium 135 mmol/L (137-145); Total Bilirubin 1.1 mg/dL (0.2-1.3); Total Protein 6.6 g/dL (6.3-8.2)
[2024-03-16 17:12] LABS: INR 0.9 (<1.2)
[2024-03-16 17:13] LABS: Partial Thromboplastin Time 23.2 sec (22.0-30.0); Prothrombin Time 10.2 sec (10.0-12.5)
[2024-03-16 17:16] LABS: NT-Pro-B-Type Natriuretic Pept 216 pg/mL
--- NOTE | 2024-03-16 18:10 | CT ---
EXAMINATION TYPE: CT brain cspine wo con CT DLP: 1503.5 mGycm, Automated exposure control for dose reduction was used. DATE OF EXAM: 03/16/2024 5:52 PM COMPARISON: 07/26/2022. CLINICAL INDICATION:Female, 88 years old with history of Trauma; fall TECHNIQUE: Brain: Multiple axial CT images of the brain were obtained without IV contrast. Cspine: Axial CT images from the skull base to the inferior aspect of T2 we obtained without intraven ous contrast. Coronal and sagittal reformatted images were also reviewed. . FINDINGS: Brain: Extra-axial spaces: No abnormal extra-axial fluid collections. Ventricular system: Dilatation in proportion to cerebral atrophy. Cerebral parenchyma: Cerebral atrophy. No acute intraparenchymal hemorrhage or mass effect. The osorio -white junction is well differentiated. Scattered hypoattenuating areas are seen within the white mat ter. Cerebellum: Unremarkable. Mass effect: No evidence of midline shift. Intracranial vasculature: unremarkable Soft tissues: Normal. Calvarium/osseous structures: No depressed skull fracture. Paranasal sinuses and mastoid air cells: Clear. Visualized orbits: Bilateral aphakia Cervical spine: Fracture: None. Osseous structures: Multilevel degenerative disc disease changes with endplate spurring and disc oste ophyte complex's. Vertebral alignment: Within normal limits. Spinal canal/Neural Foramina: No evidence of significant spinal canal narrowing. No evidence for sign ificant neural foraminal stenosis. Neck soft tissues: Prevertebral soft tissues are within normal limits. Other: The airway is patent. Layering debris within the esophagus. IMPRESSION: 1. No acute intracranial process. 2. Nonspecific white matter changes, likely secondary to chronic small vessel ischemic disease. 3. No evidence of cervical spine fracture. 4. Moderate multilevel degenerative disc disease. 5. Layering debris in the esophagus correlate for esophageal dysmotility versus reflux.
--- NOTE | 2024-03-16 18:20 | CT ---
EXAMINATION TYPE: CT chest angio for PE CT DLP: 328 mGycm, Automated exposure control for dose reduction was used. DATE OF EXAM: 03/16/2024 5:58 PM COMPARISON: 05/04/2022 CLINICAL INDICATION:Female, 88 years old with history of Right ribs hematoma, fall, shortness of ruddy th; TECHNIQUE/CONTRAST: Axial CT imaging of the chest after injection of 5 cc of Isovue-370 with sagittal coronal reformats. FINDINGS: Pulmonary Artery: There is no evidence for a filling defect within the pulmonary vasculature to sugge st acute pulmonary embolism. The pulmonary artery is of normal size. Lungs/Pleura: Mild intralobular septal thickening. Elevated right diaphragm. No evidence of focal con solidation, pleural effusion or pneumothorax. Airway: Large airways are patent. Heart: There is mildly enlarged for size. Coronary artery atherosclerosis. Vasculature: No evidence of aortic aneurysm. No filling defects chest pulmonary embolus. There is int act without evidence for dissection or aneurysmal dilation. Mediastinum: No gross evidence of adenopathy. Layering ingested contents within the esophagus through out the mediastinum. Musculoskeletal: Moderate degenerative disc disease changes are present throughout the thoracolumbar spine. No right chest wall fractures visualized. Mild edema/hematoma series 406 image 93 Soft Tissues/lymph nodes: Right breast surgical clips present. Lower neck: No significant findings. Upper Abdomen: Left renal cyst with thin calcification. Large stool burden in the colon. IMPRESSION: 1. No evidence of displaced rib fracture. Mild edema along the right lateral chest wall. No evidence of pulmonary embolism, no acute thoracic process. 2. Layering debris in esophagus correlate for esophageal dysmotility with reflux. 3. Elevated right diaphragm correlate for phrenic nerve injury. 4. Moderate multilevel degeneration changes of the spine no evidence for fracture. 5. Cardiomegaly with pulmonary vascular congestion correlate with serum BNP for congestive heart fail ure.
[2024-03-16 19:35] VITALS: BP 117/84; PULSE 68; RESP 17
== END 2024-03-16 19:36 | disposition home or self-care (01) ==
LOC: EC 15:38
DX: S20.211A Contusion of right front wall of thorax, initial encounter (principal); I44.0 Atrioventricular block, first degree; Z87.891 Personal history of nicotine dependence; Z88.2 Allergy status to sulfonamides; Z91.030 Bee allergy status; Z91.048 Other nonmedicinal substance allergy status; Z88.8 Allergy status to other drugs, medicaments and biological substances; W01.198A Fall on same level from slipping, tripping and stumbling with subsequent striking against other object, initial encounter
CPT/HCPCS: 36415; 93005; 85379; 83880; 80053; 84484; 85025; 85610; 85730; 72125; 70450; 71275; 99284; Q9967

== ENCOUNTER → 2024-03-27 | Outpatient (CLI) | payer MEDICARE, BC ==
--- NOTE | 2024-03-27 14:02 | MM ---
Reason for Exam: Clinical finding. Last screening mammogram was performed 7 month(s) ago. Indicated Problems: Pain of the right side : since ca surgery. Patient History: Menarche at age 14. First Full-Term at age 21. Postmenopausal. Breast cancer, right, age 64. Estrogen, starting at age 57 for 1 year. Progesterone, starting at age 57 for 1 year. Tamoxifen for 13 years from age 64 until age 77. Lumpectomy on the Right side. Excisional Biopsy on the Left side. 01/31/2000, Malignant Excisional Biopsy on the right side. Radiation Therapy, right. Chemotherapy. Sister had breast cancer, age 70. Prior Study Comparison: 08/23/2018 Bilateral Diagnostic Mammogram, [facility]. 08/25/2020 Bilateral Diagnostic Mammogram, [facility]. 08/30/2022 Bilateral MG 3D screening mammo w/cad, [facility]. 09/06/2022 Left MG 3D work up w/cad LT, [facility]. 09/07/2023 Bilateral MG 3D screening mammo w/cad, [facility]. Tissue Density: The breasts are heterogeneously dense, which may obscure small masses. Findings: Analyzed By CAD. Postlumpectomy changes right breast is stable dating back to 2019. No evidence for new mass or recurrent mass no suspicious microcalcifications within either breast. Overall Assessment: Benign, BI-RAD 2 Management: Screening Mammogram of both breasts in 1 year. . Results were given to the patient verbally at the time of exam. Patient should continue monthly self-breast exams. A clinical breast exam by your physician is recommended on an annual basis. This exam should not preclude additional follow-up of suspicious palpable abnormalities. Note on Katherine scores and lifetime risk: 1. A Katherine score greater than 3% is considered moderate risk. If this is the case, consider specialist referral to assess eligibility for a risk reducing agent. 2. If overall lifetime risk for the development of breast cancer is 20% or higher, the patient may qualify for future screening with alternating mammogram and breast MRI. Electronically signed and approved by: Donn Ryan M.D. Radiologis
== END | disposition home or self-care (01) ==
LOC: RADMAMWWP 13:17
PROVIDERS: ATTEND Internal Medicine Geriatric Medicine
DX: C50.911 Malignant neoplasm of unspecified site of right female breast (principal); R92.333 Mammographic heterogeneous density, bilateral breasts; N64.4 Mastodynia; Z80.3 Family history of malignant neoplasm of breast; Z78.0 Asymptomatic menopausal state
CPT/HCPCS: 77066; G0279; 77062

== ENCOUNTER → 2024-07-31 | Outpatient (CLI) | payer MEDICARE, BC ==
--- NOTE | 2024-07-31 18:07 | XR ---
EXAMINATION TYPE: XR chest 2V DATE OF EXAM: 07/31/2024 1:50 PM COMPARISON: 02/19/2024 CLINICAL INDICATION: Female, 88 years old with history of J06.9 ACUTE UPPER RESP INF, , TECHNIQUE: Frontal and lateral views FINDINGS: Heart upper limits of normal in size. Diffuse interstitial density persists though not pronounced as on 02/19/2024. No pleural effusion. Cholecystectomy clips. Some eventration anterior right hemidiaphra gm is similar. IMPRESSION: Interstitial opacities. Similar but not as pronounced as on 02/19/2024. Consider pulmonary vascular co ngestion versus atypical pneumonias, interstitial pneumonitis, or a component of underlying fibrosis. [facility], , 07/31/2024 6:05 PM
== END | disposition home or self-care (01) ==
LOC: RADXRMAIN 13:32
PROVIDERS: ATTEND Internal Medicine Geriatric Medicine
DX: J06.9 Acute upper respiratory infection, unspecified (principal); R91.8 Other nonspecific abnormal finding of lung field
CPT/HCPCS: 71046

== ENCOUNTER 2024-12-29 21:23 | Emergency (ER) | payer MEDICARE, BC ==
--- NOTE | 2024-12-29 21:37 | ED ---
Syncope HPI - General Stated Complaint: Syncope Time Seen by Provider: 12/29/24 21:34 Source: RN notes reviewed, old records reviewed Mode of arrival: EMS Limitations: no limitations - History of Present Illness Initial Comments: This is an 89-year-old female to the ER for evaluation. Patient going is from stress reaction secondary to recent loss of 6 weeks ago. Patient was at an event tonight singing having a good time without any complaints no headache chest pain shortness of breath abdominal pain, she sat down to eat dinner became unresponsive, EMS was called who found patient to be continually slightly unresponsive and on transport to EMS vehicle patient regained consciousness and currently presents to the ER without complaint. No current headache chest pain shortness breath abdominal pain recent cough or congestion with bronchitis diagnosis and treatment MD Complaint: loss of consciousness, collapsed -: minutes(s) Prodromal Symptoms: lightheaded -: minutes(s) Witnessed: yes - by bystander, yes - by EMS Current Symptoms: back to baseline History: previous syncopal episode - Related Data Home Medications Medication Instructions Recorded Confirmed Tolterodine Tartrate [Detrol LA] 4 mg PO DAILY@0800 09/08/16 11/27/23 Celecoxib [CeleBREX] 200 mg PO DAILY@0800 07/24/21 11/27/23 Gabapentin [Neurontin] 300 mg PO TID@0800,1400,2100 07/24/21 11/27/23 Loratadine [Alavert] 10 mg PO DAILY@0800 07/24/21 11/27/23 Pilocarpine HCl 5 mg PO BID@0800,2100 07/24/21 11/27/23 Metoprolol Tartrate [Lopressor] 25 mg PO DAILY@0810/17/21 11/27/23 Acetaminophen Tab [Tylenol Tab] 1,000 mg PO Q8HR@0600,1400,2200 11/27/23 11/27/23 Aspirin EC [Ecotrin Low Dose] 81 mg PO HS@1700 11/27/23 11/27/23 Atorvastatin [Lipitor] 80 mg PO HS 11/27/23 11/27/23 Clopidogrel [Plavix] 75 mg PO DAILY@0800 11/27/23 11/27/23 Furosemide [Lasix] 20 mg PO DAILY@0800 11/27/23 11/27/23 Levothyroxine Sodium [Synthroid] 88 mcg PO DAILY@00 11/27/23 11/27/23 Losartan [Cozaar] 50 mg PO HS 11/27/23 11/27/23 Magnesium Hydroxide [Milk of 7,200 mg PO DAILY PRN 11/27/23 11/27/23 Magnesia Concentrate] Melatonin 5 mg PO HS 11/27/23 11/27/23 Melatonin 5 mg PO HS PRN 11/27/23 11/27/23 Multivitamins, Thera [Multivitamin 1 tab PO HS@1700 11/27/23 11/27/23 (formulary)] Na Phos,M-B/Na Phos,Di-Ba [Fleet 133 ml RECTAL DAILY PRN 11/27/23 11/27/23 Adult] Pantoprazole Sodium [Protonix] 40 mg PO DAILY@0600 11/27/23 11/27/23 Potassium Chloride ER [K-Dur 10] 10 meq PO HS@1700 11/27/23 11/27/23 Sennosides/Docusate Sodium [Senna 1 tab PO BID@0800,1700 11/27/23 11/27/23 Plus 8.6-50 mg Tablet] Triamcinolone 0.5% Cream [Kenalog 1 applic TOPICAL BID@0800,2100 11/27/23 11/27/23 0.5% Cream] Vancomycin 1,000 mg IVPB DAILY@0800 11/27/23 11/27/23 bisacodyL [Dulcolax] 10 mg RECTAL DAILY PRN 11/27/23 11/27/23 oxyCODONE HCL [OxyIR] 5 mg PO Q4H PRN 11/27/23 11/27/23 Allergies Allergy/AdvReac Type Severity Reaction Status Date / Time adhesive tape Allergy Severe Rash/Hives Verified 12/29/24 21:44 povidone-iodine Allergy Severe Rash/Hives Verified 12/29/24 21:44 [From Betadine] bee venom protein (honey bee) Allergy Anaphylaxis Verified 12/29/24 21:44 Sulfa (Sulfonamide Allergy Rash/Hives Verified 12/29/24 21:44 Antibiotics) pioglitazone [From Actos] AdvReac Nausea & Verified 12/29/24 21:44 Vomiting Review of Systems ROS Statement: Those systems with pertinent positive or pertinent negative responses have been documented in the HPI. ROS Other: All systems not noted in ROS Statement are negative. 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 wears compression socks. c/o shortness of breath. 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 Past Anesthesia/Blood Transfusion Reactions: Previous Problems w/ Anesthesia Additional Past Anesthesia/Blood Transfusion Reaction / Comment(s): Had mult prob after knee surg 2019. Do not use Rt arm. Past Psychological History: Anxiety Smoking Status: Former smoker Past Alcohol Use History: Occasional Past Drug Use History: None Reported - Past Family History Father Family Medical History: Myocardial Infarction (AR) Additional Family Medical History / Comment(s): Father of a massive AR in his late 60s. He was an alcoholic and a smoker. Mother History Unknown: Yes Additional Family Medical History / Comment(s): Mother was healthy and lived to be 94 yrs old. Brother(s) Family Medical History: Cancer Additional Family Medical History / Comment(s): lung cancer Sister(s) Family Medical History: Cancer Additional Family Medical History / Comment(s): breast cancer General Exam General appearance: alert, in no apparent distress Head exam: Present: atraumatic, normocephalic, normal inspection Eye exam: Present: normal appearance, PERRL, EOMI. Absent: scleral icterus, conjunctival injection, periorbital swelling ENT exam: Present: normal exam, mucous membranes moist Neck exam: Present: normal inspection. Absent: tenderness, meningismus, lymphadenopathy Respiratory exam: Present: normal lung sounds bilaterally. Absent: respiratory distress, wheezes, rales, rhonchi, stridor Cardiovascular Exam: Present: regular rate, normal rhythm, normal heart sounds. Absent: systolic murmur, diastolic murmur, rubs, gallop, clicks GI/Abdominal exam: Present: soft, normal bowel sounds. Absent: distended, tenderness, guarding, rebound, rigid Extremities exam: Present: normal inspection, full ROM, normal capillary refill. Absent: tenderness, pedal edema, joint swelling, calf tenderness Back exam: Present: normal inspection Neurological exam: Present: alert, oriented X3, CN II-XII intact Psychiatric exam: Present: normal affect, normal mood Skin exam: Present: warm, dry, intact, normal color. Absent: rash Course Vital Signs 12/29/24 12/29/24 12/30/24 21:34 22:31 01:41 Temperature 98.2 F Pulse Rate 86 81 85 Respiratory 17 17 17 Rate Blood Pressure 129/79 130/69 148/91 O2 Sat by Pulse 93 L 95 Oximetry - Reevaluation(s) Reevaluation #1: 12/29/24 22:31 Medical records reviewed Reevaluation #2: 12/30/24 01:18 no Recurrent syncope here in the ER, no complaints Reevaluation #3: 12/30/24 01:19 Patient informed of results and questions answered Reevaluation #4: Was pt. sent in by a medical professional or institution (, PA, LIFE SKILLS COORDINATOR VOLUNTEER, urgent care, hospital, or fpc...) When possible be specific @ -no Did you speak to anyone other than the patient for history (EMS, parent, family, police, friend...)? What history was obtained from this source @ -no Did you review nursing and triage notes (agree or disagree)? Why? @ -agree Are old charts reviewed (outside hosp., previous admission, EMS record, old EKG, old radiological studies, urgent care reports/EKG's, fpc records)? Report findings @ -yes Differential Diagnosis (chest pain, altered mental status, abdominal pain women, abdominal pain men, vaginal bleeding, weakness, fever, dyspnea, syncope, headache, dizziness, GI bleed, back pain, seizure, CVA, palpatations, mental health, musculoskeletal)? @ -prior EKG interpreted by me (3pts min.). @ -yes X-rays interpreted by me (1pt min.). @ -no CT interpreted by me (1pt min.). @ -yes negative for acute disease U/S interpreted by me (1pt. min.). @ -no What testing was considered but not performed or refused? (CT, X-rays, U/S, labs)? Why? @ -none What meds were considered but not given or refused? Why? @ -none Did you discuss the management of the patient with other professionals (professionals i.e. , PA, LIFE SKILLS COORDINATOR VOLUNTEER, lab, RT, psych nurse, social media marketing analyst, draw tender, teacher, workplace rehabilitation officer, business case analyst)? Give summary @ -no Was smoking cessation discussed for >3mins.? @ -no Was critical care preformed (if so, how long)? @ -no Were there social determinants of health that impacted care today? How? (Homelessness, low income, unemployed, alcoholism, drug addiction, transportation, low edu. Level, literacy, decrease access to med. care, ch[facility], rehab)? @ -none Was there de-escalation of care discussed even if they declined (Discuss DNR or withdrawal of care, Hospice)? DNR status @ -no What co-morbidities impacted this encounter? (DM, HTN, Smoking, COPD, CAD, Cancer, CVA, ARF, Chemo, Hep., AIDS, mental health diagnosis, sleep apnea, morbid obesity)? @ -none Was patient admitted / discharged? Hospital course, mention meds given and route, prescriptions, significant lab abnormalities, going to OR and other pertinent info. @ - 89 female after syncopal event. Patient has no recurrent syncope throughout ER stay feels much improved after IV hydration and can be discharged home Discharged Undiagnosed new problem with uncertain prognosis? @ -no Drug Therapy requiring intensive monitoring for toxicity (Heparin, Nitro, I nsulin, Cardizem)? @ -no Were any procedures done? @ -no Diagnosis/symptom? @ -Syncope Acute, or Chronic, or Acute on Chronic? @ -Acute Uncomplicated (without systemic symptoms) or Complicated (systemic symptoms)? @ -Complicated Side effects of treatment? @ -no Exacerbation, Progression, or Severe Exacerbation? @ -exacerbation Poses a threat to life or bodily function? How? (Chest pain, USA, AR, pneumonia, PE, COPD, DKA, ARF, appy, cholecystitis, CVA, Diverticulitis, Homicidal, Suicidal, threat to staff... and all critical care pts) @ -yes with a syncopal event Reevaluation #5: Differential Syncope: Valvular disease, hypertrophic cardiomyopathy, pulmonary embolism, tamponade, tachycardia, bradycardia, AR, hypovolemia, hemorrhage, dissection, anemia, intra cranial hemorrhage, seizure, hypoglycemia, carbon monoxide poisoning, this is not meant to be an all-inclusive list. EKG Findings - EKG Comments: EKG Findings:: EKG is sinus 82 LA 265 QRS 94 QTc 391 - EKG Results: EKG: interpreted by [facility] Medical Decision Making - Medical Decision Making 89 female after syncopal event. Patient has no recurrent syncope throughout ER stay feels much improved after IV hydration and can be discharged home - Lab Data Result diagrams: 12/29/24 21:54 12/29/24 21:54 Lab Results 12/29/24 12/29/24 12/29/24 Range/Units 21:54 21:54 21:54 WBC 9.14 (4.50-10.00) 10*3/uL RBC 4.50 (4.10-5.20) 10*6/uL Hgb 13.6 (12.0-15.0) g/dL Hct 40.2 (37.2-46.3) % MCV 89.3 (80.0-97.0) fL MCH 30.2 (27.0-32.0) pg MCHC 33.8 (32.0-37.0) g/dL Plt Count 244 (140-440) 10*3/uL MPV 10.3 (9.5-12.2) fL Immature Gran % (Auto) 0.8 % Neutrophils % 74.5 % Lymphocytes % 17.1 % Monocytes % 4.2 % Eosinophils % 3.0 % Basophils % 0.4 % Immature Gran # 0.07 H (0.00-0.04) 10*3/uL Neutrophils # 6.82 (1.80-7.70) 10*3/uL Lymphocytes # 1.56 (0.90-5.00) 10*3/uL Monocytes # 0.38 (0.20-1.00) 10*3/uL Eosinophils # 0.27 (0.04-0.35) 10*3/uL Basophils # 0.04 (0.00-0.10) 10*3/uL PT 10.7 (10.0-12.5) sec INR 1.0 (<1.2) APTT 22.3 (22.0-30.0) sec D-Dimer 2.63 H (<0.60) mg/L FEU Sodium 137 (137-145) mmol/L Potassium 4.3 (3.5-5.1) mmol/L Chloride 102 (98-107) mmol/L Carbon Dioxide 22 (22-30) mmol/L Anion Gap 13 mmol/L BUN 21 H (7-17) mg/dL Creatinine 0.61 (0.52-1.04) mg/dL Est GFR (CKD-EPI)AfAm >90 (>60 ml/min/1.73 sqM) Est GFR (CKD-EPI)NonAf 81 (>60 ml/min/1.73 sqM) Glucose 161 H (74-99) mg/dL Plasma Lactic Acid Sp (0.7-2.0) mmol/L Calcium 9.6 (8.4-10.2) mg/dL Phosphorus 4.1 (2.5-4.5) mg/dL Magnesium 1.7 (1.6-2.3) mg/dL Total Bilirubin 0.9 (0.2-1.3) mg/dL AST 43 H (14-36) U/L ALT 30 (4-34) U/L Alkaline Phosphatase 103 (38-126) U/L Troponin I (0.000-0.034) ng/mL NT-Pro-B Natriuret Pep 342 pg/mL Total Protein 6.9 (6.3-8.2) g/dL Albumin 4.0 (3.5-5.0) g/dL 12/29/24 12/29/24 Range/Units 21:54 21:54 WBC (4.50-10.00) 10*3/uL RBC (4.10-5.20) 10*6/uL Hgb (12.0-15.0) g/dL Hct (37.2-46.3) % MCV (80.0-97.0) fL MCH (27.0-32.0) pg MCHC (32.0-37.0) g/dL Plt Count (140-440) 10*3/uL MPV (9.5-12.2) fL Immature Gran % (Auto) % Neutrophils % % Lymphocytes % % Monocytes % % Eosinophils % % Basophils % % Immature Gran # (0.00-0.04) 10*3/uL Neutrophils # (1.80-7.70) 10*3/uL Lymphocytes # (0.90-5.00) 10*3/uL Monocytes # (0.20-1.00) 10*3/uL Eosinophils # (0.04-0.35) 10*3/uL Basophils # (0.00-0.10) 10*3/uL PT (10.0-12.5) sec INR (<1.2) APTT (22.0-30.0) sec D-Dimer (<0.60) mg/L FEU Sodium (137-145) mmol/L Potassium (3.5-5.1) mmol/L Chloride (98-107) mmol/L Carbon Dioxide (22-30) mmol/L Anion Gap mmol/L BUN (7-17) mg/dL Creatinine (0.52-1.04) mg/dL Est GFR (CKD-EPI)AfAm (>60 ml/min/1.73 sqM) Est GFR (CKD-EPI)NonAf (>60 ml/min/1.73 sqM) Glucose (74-99) mg/dL Plasma Lactic Acid Sp 1.7 (0.7-2.0) mmol/L Calcium (8.4-10.2) mg/dL Phosphorus (2.5-4.5) mg/dL Magnesium (1.6-2.3) mg/dL Total Bilirubin (0.2-1.3) mg/dL AST (14-36) U/L ALT (4-34) U/L Alkaline Phosphatase (38-126) U/L Troponin I <0.012 (0.000-0.034) ng/mL NT-Pro-B Natriuret Pep pg/mL Total Protein (6.3-8.2) g/dL Albumin (3.5-5.0) g/dL - EKG Data -: EKG Interpreted by Me - Radiology Data Radiology results: report reviewed (CTA chest negative PE CT abdomen pelvis negative for acute disease), image reviewed Disposition Clinical Impression: Syncope, Dehydration Disposition: HOME SELF-CARE Condition: Undetermined Instructions (If sedation given, give patient instructions): Syncope (ED) Is patient prescribed a controlled substance at d/c from ED?: No Referrals: Jason Killian MD [Primary Care Provider] - 1-2 days Time of Disposition: 01:10
[2024-12-29 21:44] VITALS: RESP 17; TEMP 98.2
[2024-12-29] MEDS: LACTATED RINGERS 1,000 ML IV ONE (22:05)
[2024-12-29 22:18] LABS: HCT 40.2 % (37.2-46.3); HGB 13.6 g/dL (12.0-15.0); WBC 9.14 10*3/uL (4.50-10.00)
[2024-12-29 22:19] LABS: Basophils # (A) 0.04 10*3/uL (0.00-0.10); Basophils % (A) 0.4 %; Eosinophils # (A) 0.27 10*3/uL (0.04-0.35); Lymphocytes # (A) 1.56 10*3/uL (0.90-5.00); Lymphocytes % (A) 17.1 %; MCH 30.2 pg (27.0-32.0); MCHC 33.8 g/dL (32.0-37.0); MCV 89.3 fL (80.0-97.0); Mean Platelet Volume 10.3 fL (9.5-12.2); Monocytes # (A) 0.38 10*3/uL (0.20-1.00); Monocytes % (A) 4.2 %; Neutrophils # (A) 6.82 10*3/uL (1.80-7.70); Neutrophils % (A) 74.5 %; Platelet Count 244 10*3/uL (140-440); RDW 15.9 % (11.5-14.5)
[2024-12-29 22:41] LABS: ALT 30 U/L (4-34); AST 43 U/L (14-36); African American GFR (CKD) >90 (>60 ml/min/1.73 sqM); Alkaline Phosphatase 103 U/L (38-126); Anion Gap 13 mmol/L; Blood Urea Nitrogen 21 mg/dL (7-17); Calcium 9.6 mg/dL (8.4-10.2); Carbon Dioxide 22 mmol/L (22-30); Chloride 102 mmol/L (98-107); Glucose 161 mg/dL (74-99); Magnesium 1.7 mg/dL (1.6-2.3); Non-African American GFR(CKD) 81 (>60 ml/min/1.73 sqM); Phosphorus 4.1 mg/dL (2.5-4.5); Potassium 4.3 mmol/L (3.5-5.1); Sodium 137 mmol/L (137-145); Total Bilirubin 0.9 mg/dL (0.2-1.3); Total Protein 6.9 g/dL (6.3-8.2)
[2024-12-29 22:47] LABS: NT-Pro-B-Type Natriuretic Pept 342 pg/mL
[2024-12-29 23:00] LABS: Partial Thromboplastin Time 22.3 sec (22.0-30.0); Prothrombin Time 10.7 sec (10.0-12.5)
[2024-12-29] MEDS ORDERED: SODIUM CHLORIDE 0.9% 1,000 ML IV SCH (23:15)
[2024-12-29] MEDS: SODIUM CHLORIDE 0.9% 500 ML 500 ML IV ONE (23:21)
[2024-12-29] MEDS: FAMOTIDINE 20 MG/2 ML VIAL IV STA (23:22)
[2024-12-29] MEDS: methylPREDNISolone SOD SUCCI 125 MG/2 ML VIAL IV STA (23:26)
[2024-12-29] MEDS: diphenhydrAMINE 50 MG/ML 1 ML VIAL IVP STA (23:28)
--- NOTE | 2024-12-30 00:42 | CT ---
EXAMINATION TYPE: CT angio chest DATE OF EXAM: 12/30/2024 12:06 AM COMPARISON: None. CLINICAL INDICATION: Female, 89 years old with history of syncope, Pt presents to the ED with complai nts of a syncopal episode, pt was at [email or web address] when she went unresponsive, when brought outside pt "perked" up, per EMS Pt reports cardiac history., TECHNIQUE: CT of the chest is performed on a spiral scan at 2 mm thick sections. Study is performed with intravenous contrast timed for evaluation for pulmonary embolism. This will limit additional po rtions of the evaluation. 10mm MIP images reconstructed by the technologist are reviewed on the comp uter in the coronal and sagittal planes. Contrast used:70 COMBINED W/ A/P mL of Isovue 370 with IV Contrast, (none if empty) Oral contrast used: (none if empty) CT DLP: 1479.3 COMBNIED W/ A/P mGycm, Automated exposure control for dose reduction was used. FINDINGS: No persistent filling defects are evident to suggest an acute pulmonary embolism. No mediastinal or hilar adenopathy enlarged by CT criteria is evident. The ascending aorta diameter at the level of the main pulmonary artery is 3.4 cm. The main pulmonary artery diameter at the bifurcation is 2.9 cm. No focal consolidations. There is mild increased lung markings which are nonspecific. Correlate for m ild volume overload Mild coronary artery calcifications present. Limited CT sections were through the upper abdomen. Upper abdomen appears unremarkable. IMPRESSION: 1. No acute pulmonary embolus. 2. Mild volume overload [facility], Workstation: [facility], 12/30/2024 12:40 AM
--- NOTE | 2024-12-30 01:01 | CT ---
EXAMINATION TYPE: CT abdomen pelvis w con DATE OF EXAM: 12/30/2024 12:09 AM COMPARISON: 04/16/2023 CLINICAL INDICATION: Female, 89 years old with history of pain, Pt presents to the ED with complaints of a syncopal episode, pt was at [employer] when she went unresponsive, when brought outside pt "pe rked" up, per EMS Pt reports cardiac history. TECHNIQUE: Axial images were obtained from above the diaphragm to the pubic rami in the axial plane a t 5 mm thick sections. Reconstructed images are reviewed on the computer in the coronal plane. CONTRAST: 70 COMBINED W/ CTA mL of Isovue 370. Study performed without Oral Contrast DLP: 1479.3 COMBNIED W/ CTA mGycm, Automated exposure control for dose reduction was used. FINDINGS: Limited CT sections are obtained the lung bases. The lung bases are clear. CT ABDOMEN: Liver: Normal Spleen: Normal Pancreas: Atrophic Adrenal glands: The adrenal glands are normal. Gallbladder: Surgically absent Kidneys: No masses are evident. No hydronephrosis is present. Couple small cortical renal cysts are present Delayed images were obtained through the kidneys, which remain unremarkable. Aorta: Vascular calcification is within the aorta. Inferior vena cava: Normal. CT PELVIS: Loops of bowel within the abdomen and pelvis are normal. Study is without oral contrast limits ev aluation. Appendix: Normal as visualized. Urinary bladder: Normal. Genitourinary structures: Uterus appears normal. Adnexa are unremarkable. Osseous structures: No suspicious lytic or sclerotic lesions. Prior left hip prosthesis is evident. F acet hypertrophy is present within the lumbar spine IMPRESSION: 1. No suspicious acute changes [facility], Workstation: [facility], 12/30/2024 12:58 AM
[2024-12-30 01:42] VITALS: BP 148/91; PULSE 85
== END 2024-12-30 01:42 | disposition home or self-care (01) ==
LOC: EC 21:23
DX: R55 Syncope and collapse (principal); E86.0 Dehydration; Z88.2 Allergy status to sulfonamides; Z88.8 Allergy status to other drugs, medicaments and biological substances; Z91.041 Radiographic dye allergy status; Z91.030 Bee allergy status; Z91.09 Other allergy status, other than to drugs and biological substances; Z87.891 Personal history of nicotine dependence
CPT/HCPCS: 36415; 93005; 85379; 83880; 80053; 83605; 83735; 84100; 84484; 85025; 85610; 85730; 71275; 74177; 99285; 96374; 96375 ×2; 96361 ×2; J1200; Q9967; J2919; J1308